=== PATIENT | female | born 1955 | race Asian ===

== ENCOUNTER 2020-12-25 10:56 | Inpatient (IN) | payer OTHER ==
--- NOTE | 2020-12-25 11:09 | Event Note ---
ED Screening Note Date of service: 12/25/20 Time: 11:08 ED Screening Note: 65 year old female presents to ED with c/o weakness left hand/numbness left forearm since 6 am this morning. She reports pain in left hip and numbness left ankle area but no LE weakness, no facial weakness/numbness tingling; no speech or vision changes. pmhx: DM, HTN This initial assessment/diagnostic orders/clinical plan/treatment(s) is/are subject to change based on patients health status, clinical progression and re- assessment by fellow clinical providers in the ED. Further treatment and workup at subsequent clinical providers discretion. Patient/guardian urged not to elope from the ED as their condition may be serious if not clinically assessed and managed. Initial orders include: CT head/labs/EKG/CXR
[2020-12-25 11:31] LABS: Basophils # (Auto) 0.1 K/mm3 (0.0-0.1); Basophils % (Auto) 1.2 % (0.0-1.8); Eosinophils # (Auto) 0.2 K/mm3 (0.0-0.4); Eosinophils % (Auto) 2.8 % (0.0-4.3); Hemoglobin 14.8 gm/dl (10.1-14.3); Lymphocytes # (Auto) 1.5 K/mm3 (1.2-5.4); Mean Corpuscular HGB Conc 34 % (30-34); Mean Corpuscular Volume 92 fl (79-97); Monocytes # (Auto) 0.6 K/mm3 (0.0-0.8); Monocytes % (Auto) 8.2 % (0.0-7.3); Platelet Count 272 K/mm3 (140-440); Red Cell Distribution Width 13.3 % (13.2-15.2)
[2020-12-25 11:56] LABS: INR 0.99 (0.87-1.13); Partial Thromboplastin Time 26.4 Sec. (24.2-36.6)
[2020-12-25 11:57] LABS: Albumin 2.9 g/dL (3.9-5); Calcium 8.4 mg/dL (8.4-10.2)
--- NOTE | 2020-12-25 12:09 | XRay Report ---
CHEST PA AND LATERAL VIEWS INDICATION: elevated BP/hand weakness. COMPARISON: None FINDINGS: Support devices: None Heart: Moderately enlarged Lungs/Pleura: Small bilateral pleural effusions. No pulmonary edema or acute pulmonary disease. IMPRESSION: 1. Cardiomegaly and small bilateral pleural effusions, possibly indicating early congestive failure, though there is no appreciable pulmonary edema. Signer Name: David Bryson MD Signed: 12/25/2020 12:04 PM Workstation Name: [id number]
--- NOTE | 2020-12-25 12:16 | Cat Scan Report ---
CT HEAD WITHOUT CONTRAST INDICATION / CLINICAL INFORMATION: Pt complains of weakness, LT hand and forearm numbness. Hypertension. TECHNIQUE: All CT scans at this location are performed using CT dose reduction for ALARA by means of automated e xposure control. COMPARISON: None available. FINDINGS: HEMORRHAGE: No evidence of intracranial hemorrhage or extra-axial fluid collection. EXTRA-AXIAL SPACES: Cortical sulci, sylvian fissures and basilar cisterns have an unremarkable appear ance. VENTRICULAR SYSTEM: The third and lateral ventricles are of normal size and configuration. CEREBRAL PARENCHYMA: Deep and subcortical white matter lucencies are observed in both cerebral hemisp heres likely secondary to microvascular ischemic change. No additional areas of abnormal brain parenc hymal attenuation are identified. There is no indication of recent infarction. MIDLINE SHIFT OR HERNIATION: There is no mass effect. CEREBELLUM / BRAINSTEM: Brainstem and cerebellum have an unremarkable appearance. MIDLINE STRUCTURES:No abnormalities of the pituitary gland or pineal region are identified. INTRACRANIAL VESSELS:No abnormalities are identified on this noncontrast head CT. ORBITS: visualized portions of the orbits have an unremarkable appearance. SOFT TISSUES of HEAD: No significant abnormality. CALVARIUM: Evaluation of bone windows reveals no abnormalities. PARANASAL SINUSES / MASTOID AIR CELLS: Visualized portions of the paranasal sinuses are free from inf lammatory mucosal disease. Mastoid air cells are normally pneumatized. IMPRESSION: 1. No acute intracranial abnormality. Signer Name: Orlin Jiménez MD Signed: 12/25/2020 12:11 PM Workstation Name: [id number]
[2020-12-25 12:20] LABS: Chol/HDL Ratio 4.4 %
[2020-12-25] MEDS ORDERED: ASPIRIN 325 MG TAB PO ONE (12:30)
--- NOTE | 2020-12-25 12:58 | Emergency Department Report ---
ED Neuro Deficit HPI - General Chief Complaint: Neuro Symptoms/Deficit Stated Complaint: LT ARM NUMBNESS Time Seen by Provider: 12/25/20 11:06 Source: patient Mode of arrival: Ambulatory Limitations: No Limitations - History of Present Illness Initial Comments: This is a 65-year-old female with no prior history of stroke who complains of numbness and weakness of her left side since 6 AM this morning. Patient states that she woke up at 6 AM and noticed that she had numbness in her left arm. She has never experienced this before. She denied any con commitment pressure tightness or pain in her chest. She stated that she noticed that she had some d ifficulty with grasping objects with her left hand. She noticed by 10:00 that she had some numbness in her left leg. She reported some pain in her upper left lateral thigh. She initially stated that she had no difficulty with walking but later told me she had difficulty going down the stairs. She does not report any ongoing weakness of the left lower extremity. However, she believes her left hand weakness is persistent. Patient states she has a history of type 2 diabetes and hypertension. She states that she "always wakes up in the middle of night short of breath". Last night she did so per her usual routine. She also states that she has had progressive swelling of her lower extremities lately left greater than right. Patient reports no prior history of coronary artery disease/myocardial infarction or VTE. -: During the night Time: 06:00 (Last known well time last night) Location: left arm, left leg Presenting Symptoms: Present: Weak/Paralyzed One Side History of same: No Place: home Severity: mild, moderate Quality: weak, numb Improves With: none Worsens With: none On Anticoagulants: No Context: other Associated Symptoms: denies other symptoms (None to follow. Left upper thigh pain as above) Treatments Prior to Arrival: none - Related Data Allergies/Adverse Reactions: Allergies Allergy/AdvReac Type Severity Reaction Status Date / Time No Known Allergies Allergy Unverified 12/25/20 11:08 ED Review of Systems ROS: Stated complaint: LT ARM NUMBNESS Other details as noted in HPI Constitutional: denies: chills, fever Eyes: denies: eye pain, vision change ENT: denies: ear pain, throat pain Respiratory: denies: cough, shortness of breath Cardiovascular: paroxysmal nocturnal dyspnea. denies: chest pain, palpitations Endocrine: no symptoms reported Gastrointestinal: denies: abdominal pain, nausea, diarrhea Genitourinary: denies: urgency, dysuria Musculoskeletal: as per HPI. denies: back pain, arthralgia Skin: denies: rash, lesions Neurological: numbness. denies: headache, weakness, paresthesias (Patient states that she has a "neuropathy".) Psychiatric: denies: anxiety, depression Hematological/Lymphatic: denies: easy bleeding, easy bruising ED Past Medical Hx - Past Medical History Previous Medical History?: Yes Hx Hypertension: Yes Hx Diabetes: Yes - Surgical History Past Surgical History?: No - Social History Substance Use Type: None ED Neuro Physical Exam - General Limitations: Physical Limitation General appearance: alert, in no apparent distress, obese Suspected Stroke: Yes - Head Head exam: Present: atraumatic, normocephalic - Eye Eye exam: Present: normal appearance. Absent: scleral icterus - ENT ENT exam: Present: mucous membranes moist - Neck Neck exam: Present: normal inspection. Absent: tenderness, meningismus - Respiratory Respiratory exam: Present: normal lung sounds bilaterally. Absent: respiratory distress - Cardiovascular Cardiovascular Exam: Present: regular rate, normal rhythm. Absent: systolic murmur, diastolic murmur, rubs, gallop - GI/Abdominal GI/Abdominal exam: Present: soft, normal bowel sounds. Absent: distended, tenderness, guarding, rebound, rigid - Extremities Exam Extremities exam: Present: pedal edema (2+ bilaterally), other (Bilateral leg edema at least 2+ left greater than right,) - Back Exam Back exam: Present: normal inspection - Neurological Exam Neurological exam: Present: alert, oriented X3, CN II-XII intact, motor sensory deficit - NIHSS Assessment Interval: Baseline 1a. Level of Consciousness: alert/keenly responsive 1b. LOC Questions: answers both correctly 1c. LOC Commands: performs tasks correctly 2. Best Gaze: normal 3. Visual: no visual loss 4. Facial Palsy: normal symmetrical movement 5b. Motor Arm Right: no drift 5a. Motor Arm Left: drift 6a. Motor Leg Left: no drift 6b. Motor Leg Right: no drift 7. Limb Ataxia: absent 8. Sensory: mild/moderate sensory loss 9. Best Language: no aphasia 10. Dysarthria: normal 11. Extinction/Inattention: no abnormality Total Score: 2 Stroke Severity: Minor Stroke - Psychiatric Psychiatric exam: Present: normal affect, normal mood - Skin Skin exam: Present: warm, dry, intact, normal color. Absent: rash ED Course Vital Signs 12/25/20 11:06 Temperature 97.9 F Pulse Rate 104 H Respiratory 18 Rate Blood Pressure 183/114 [Right] O2 Sat by Pulse 97 Oximetry - Reevaluation(s) Reevaluation #1: Telemetry neurology consult is placed. Discussed with hospitalist. Patient perhaps has had a lacunar infarct. She is not a candidate for TPA. She is outside the window. She will be given aspirin. Further recommendations for stroke work-up will be per teleneurologist. Additionally patient is diabetic and hypertensive with evidence of congestive heart failure. She is found to have an elevated troponin as well. Further cardiology work-up is pending. Additionally with her left thigh pain and bilateral leg swelling venous Doppler studies are also pending. Further care management per hospitalist/consult staff. 12/25/20 13:05 - Lab Data Result diagrams: 12/25/20 11:16 12/25/20 11:16 Lab Results 12/25/20 12/25/20 12/25/20 Range/Units 11:16 11:16 11:16 WBC 7.5 (4.5-11.0) K/mm3 RBC 4.80 (3.65-5.03) M/mm3 Hgb 14.8 H (10.1-14.3) gm/dl Hct 44.0 H (30.3-42.9) % MCV 92 (79-97) fl MCH 31 (28-32) pg MCHC 34 (30-34) % RDW 13.3 (13.2-15.2) % Plt Count 272 (140-440) K/mm3 Lymph % (Auto) 20.0 (13.4-35.0) % [place] % (Auto) 8.2 H (0.0-7.3) % Eos % (Auto) 2.8 (0.0-4.3) % Baso % (Auto) 1.2 (0.0-1.8) % Lymph # (Auto) 1.5 (1.2-5.4) K/mm3 [place] # (Auto) 0.6 (0.0-0.8) K/mm3 Eos # (Auto) 0.2 (0.0-0.4) K/mm3 Baso # (Auto) 0.1 (0.0-0.1) K/mm3 Seg Neutrophils % 67.8 (40.0-70.0) % Seg Neutrophils # 5.1 (1.8-7.7) K/mm3 PT 13.0 (12.2-14.9) Sec. INR 0.99 (0.87-1.13) APTT 26.4 (24.2-36.6) Sec. Sodium 139 (137-145) mmol/L Potassium 3.6 (3.6-5.0) mmol/L Chloride 98.2 (98-107) mmol/L Carbon Dioxide 35 H (22-30) mmol/L Anion Gap 9 mmol/L BUN 18 H (7-17) mg/dL Creatinine 1.0 (0.6-1.2) mg/dL Estimated GFR 56 ml/min BUN/Creatinine Ratio 18 % Glucose 239 H (65-100) mg/dL Calcium 8.4 (8.4-10.2) mg/dL Total Bilirubin 0.40 (0.1-1.2) mg/dL AST 24 (5-40) units/L ALT 22 (7-56) units/L Alkaline Phosphatase 92 (35-129) units/L Troponin T 0.288 H* (0.00-0.029) ng/mL Total Protein 5.7 L (6.3-8.2) g/dL Albumin 2.9 L (3.9-5) g/dL Albumin/Globulin Ratio 1.0 % Triglycerides 106 (2-149) mg/dL Cholesterol 207 H (50-199) mg/dL LDL Cholesterol Direct 163 H (50-130) mg/dL HDL Cholesterol 47 (40-59) mg/dL Cholesterol/HDL Ratio 4.40 % Lipase 15 (13-60) units/L - EKG Data -: EKG Interpreted by Ny EKG shows normal: sinus rhythm Rate: normal Interpretation: nonspecific ST-T wave ike, LVH (With associated repolarization abnormality), other (Left axis deviation. Intraventricular conduction delay.) - Radiology Data Radiology results: report reviewed, image reviewed Critical care attestation.: If time is entered above; I have spent that time in minutes in the direct care of this critically ill patient, excluding procedure time. 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
--- NOTE | 2020-12-25 14:57 | Consultation ---
Medications and Allergies Allergies Allergy/AdvReac Type Severity Reaction Status Date / Time No Known Allergies Allergy Unverified 12/25/20 11:08 Home Medications Medication Instructions Recorded Confirmed Last Taken Type Gabapentin [Neurontin] 300 mg PO BID 12/25/20 12/25/20 Unknown History Glimepiride [Amaryl] 4 mg PO BID 12/25/20 12/25/20 Unknown History hydroCHLOROthiazide [Hctz] 12.5 mg PO QDAY 12/25/20 12/25/20 Unknown History Physical Examination - Vital Signs Vital Signs: Vital Signs Temp Pulse Resp BP Pulse Ox 97.9 F 104 H 18 183/114 97 12/25/20 11:06 12/25/20 11:06 12/25/20 11:06 12/25/20 11:06 12/25/20 11:06 Results - Laboratory Findings CBC and BMP: 12/25/20 11:16 12/25/20 11:16 Abnormal Lab Findings: Abnormal Labs 12/25/20 12/25/20 11:16 11:16 Hgb 14.8 H Hct 44.0 H [place] % (Auto) 8.2 H Carbon Dioxide 35 H BUN 18 H Glucose 239 H Troponin T 0.288 H* Total Protein 5.7 L Albumin 2.9 L Cholesterol 207 H LDL Cholesterol Direct 163 H Assessment and Plan [place] [facility] Consult Note # Demographics Consult Type: Acute Stroke Level 2 (4.5-24 hrs) Patient Location: Emergency Room First Name: Madeline Last Name: Stu Date of : 1955 Age: 65 Gender: Female Time of Initial Page (Eastern Time): 12/25/2020, 13:10 Time of Return Call (Eastern Time): 12/25/2020, 13:13 # HPI Chief Complaint: weakness (focal) History: 65 yo woman with DM, HTN, awoke at 6:00 and went to get some water and dropped it out of her left hand. Her left hand was feeling funny and she couldn't grab in it. She noticed some increased swelling in her left leg which has gotten worse. NIHSS 2 for left arm drift. # Scores Time of exam and NIHSS (Eastern Time): 12/25/2020, 14:46 Level of Consciousness 1a: [0] = Alert; keenly responsive LOC Questions 1b: [0] = Answers both questions correctly LOC Commands 1c: [0] = Performs both tasks correctly Best Gaze 2: [0] = Normal Visual 3: [0] = No visual loss Facial Palsy 4: [0] = Normal symmetrical movements Motor Arm Left 5a: [1] = Drift Motor Arm Right 5b: [0] = No drift Motor Leg Left 6a: [0] = No drift Motor Leg Right 6b: [1] = Drift Limb Ataxia 7: [0] = Absent Sensory 8: [1] = Thss-jb-ufuzbana sensory loss Best Language 9: [0] = No aphasia Dysarthria 10: [0] = Normal Extinction and Inattention 11: [0] = No abnormality NIHSS Total: 3 # Exam SBP: 158 DBP: 114 # PMH-FH-SH Past Medical History: Diabetes, hypertension, neuropathy Social History: non-smoker, occasional alcohol Medications: Gabapentin, Losartan, HCTZ, Glimiperide, Allergies: NKDA # Data Head CT: no bleed # Assessment Impression: Left sided weakness concerning for acute stroke. # Plan Thrombolytic/Intervention: NOT IV Thrombolytic or IA Intervention Thrombolytic Exclusion (< 3 hour window): time of onset unclear Thrombolytic Exclusion: > 4.5 hours Intraarterial Exclusion: other (see below), Symptoms not suggestive of LVO, CTA pending Labs: hemoglobin A1c, lipid panel Imaging: (urgency: STAT in ED): CT Angiogram Head and CT Angiogram Neck Imaging: (urgency: routine admission): MRI Brain without contrast Diagnostic Test: echo with bubble study Therapy/Evaluation: NPO until swallow evaluation, PT/OT evaluation, speech/swallow consultation Medication: aspirin 81 mg daily, clopidogrel (Plavix) 75 mg daily, aspirin 81 mg PLUS clopidogrel (Plavix) 75 mg for 21 days, then monotherapy therafter, Load with plavix 300 mg x 1 now DVT Prophylaxis: SCD, chemical DVT prophylaxis Other: LDL < 70, permissive hypertension, telemetry monitoring, I have discussed my recommendations with the referring provider Disposition: admit # Logistics Telemedicine: Interactive 2 way audio and visual telecommunication technology was utilized during this visit
--- NOTE | 2020-12-25 15:04 | History and Physical Report ---
History of Present Illness Chief complaint: I woke up this morning and I was weak on the left side History of present illness: 65 YO Female with Obesity, HTN, DM presents to ED for evaluation. Pt reports " I feel weak". Patient states that she was in her usual state of health at bedtime which was around 2200 hrs. Patient states that she awoke from sleep at 1000 hrs. and was found to have left arm and leg weakness. Patient reports difficulty grasping and holding onto objects with her left hand as well as unsteady gait. Patient transported to [facility] via private vehicle for further care and evaluation of the aforementioned symptoms. The patient was seen and evaluated in the emergency department. All lab and imaging studies reviewed. Patient was found to have a neurologic deficit. A code stroke was called. Patient found to have elevated troponins which is consistent with non-ST elevation MO, chest x-ray was ordered and patient was found to have a right middle lobe pneumonia. Patient admitted to telemetry and initiated on ACS protocol as well as pneumonia protocol. Patient denies known history of atrial fibrillation, fever, chills, chest pain, palpitations, productive cough, skin rash, recent ill contacts, known ill contacts, unilateral leg swelling, calf pain, individual/family history of DVT/PE/bleeding/blood clotting disorders, or known exposure to COVID-19. Teleneurology consulted in ED. and not a candidate for TPA. Cardiology team consulted in ED. Advanced care planning conducted in ED. Past History Past Medical History: diabetes, hypertension Past Surgical History: No surgical history, Other (Reviewed) Social history: single. denies: smoking, alcohol abuse, prescription drug abuse Family history: diabetes, hypertension Medications and Allergies Allergies Allergy/AdvReac Type Severity Reaction Status Date / Time No Known Allergies Allergy Unverified 12/25/20 11:08 Home Medications Medication Instructions Recorded Confirmed Last Taken Type Gabapentin [Neurontin] 300 mg PO BID 12/25/20 12/25/20 Unknown History Glimepiride [Amaryl] 4 mg PO BID 12/25/20 12/25/20 Unknown History Losartan Potassium 100 mg PO QHS 12/25/20 12/25/20 Unknown History hydroCHLOROthiazide [Hctz] 12.5 mg PO QDAY 12/25/20 12/25/20 Unknown History Review of Systems Constitutional: no weight loss, no fever, no sweats Ears, nose, mouth and throat: no ear pain, no ear discharge, no tinnitis, no nose pain, no nasal congestion, no nasal discharge Breasts: no change in shape Cardiovascular: no chest pain, no orthopnea, no palpitations, no rapid/irregular heart beat, no edema, no syncope, no claudication, no leg edema Respiratory: no cough, no cough with sputum, no excessive sputum, no hemoptysis Gastrointestinal: no nausea, no vomiting, no diarrhea, no constipation, no change in bowel habits, no hematemesis Genitourinary Female: no pelvic pain, no flank pain, no dysuria, no urinary frequency, no urgency Rectal: no pain, no incontinence, no bleeding Musculoskeletal: no neck stiffness, no neck pain, no shooting arm pain, no arm numbness/tingling, no low back pain, no shooting leg pain Integumentary: no rash, no pruritis, no redness, no sores, no wounds Neurological: weakness, numbness, lack of coordination, gait dysfunction, motor disturbance Psychiatric: no anxiety, no memory loss, no sleep disturbances, no insomnia, no hypersomnia, no change in libido, no suicidal ideation, no disorientation Endocrine: no cold intolerance, no heat intolerance, no polyphagia, no polydipsia, no polyuria, no nocturia, no excessive sweating Hematologic/Lymphatic: no easy bruising, no easy bleeding, no lymphadenopathy, no lymphedema Allergic/Immunologic: no urticaria, no allergic rhinitis, no wheezing, no anaphylaxis, no angioedema Exam - Constitutional Vitals: Temp Pulse Resp BP Pulse Ox 97.9 F 104 H 18 183/114 97 12/25/20 11:06 12/25/20 11:06 12/25/20 11:06 12/25/20 11:06 12/25/20 11:06 General appearance: Present: mild distress, obese - EENT Eyes: Present: PERRL ENT: hearing intact, clear oral mucosa - Neck Neck: Present: supple, normal ROM - Respiratory Respiratory effort: normal Respiratory: bilateral: CTA - Cardiovascular Heart Sounds: Present: S1 & S2. Absent: rub, click - Extremities Extremities: pulses symmetrical, No edema Peripheral Pulses: within normal limits - Abdominal General gastrointestinal: Present: soft, non-tender, non-distended, normal bowel sounds Female genitourinary: Present: normal - Integumentary Integumentary: Present: clear, warm, dry - Musculoskeletal Musculoskeletal: gait normal, strength equal bilaterally - Psychiatric Psychiatric: appropriate mood/affect, intact judgment & insight - Neurologic Neurologic: CNII-XII intact, moves all extremities HEART Score - HEART Score Troponin: Troponin T 0.288 ng/mL (0.00-0.029) H* 12/25/20 11:16 Results - Labs CBC & Chem 7: 12/25/20 11:16 12/25/20 11:16 Labs: Abnormal lab results 12/25/20 12/25/20 Range/Units 11:16 11:16 Hgb 14.8 H (10.1-14.3) gm/dl Hct 44.0 H (30.3-42.9) % [place] % (Auto) 8.2 H (0.0-7.3) % Carbon Dioxide 35 H (22-30) mmol/L BUN 18 H (7-17) mg/dL Glucose 239 H (65-100) mg/dL Troponin T 0.288 H* (0.00-0.029) ng/mL Total Protein 5.7 L (6.3-8.2) g/dL Albumin 2.9 L (3.9-5) g/dL Cholesterol 207 H (50-199) mg/dL LDL Cholesterol Direct 163 H (50-130) mg/dL Assessment and Plan - Patient Problems (1) CVA (cerebral vascular accident) Current Visit: Yes Status: Acute Qualifiers: CVA mechanism: unspecified Qualified Code(s): I63.9 - Cerebral infarction, unspecified Plan to address problem: CVA protocol: CT head, neuro check, seizure precautions, antiplatelet therapy, lipid panel, echocardiogram, carotid Doppler, lipid panel, telemetry neurology consulted (2) NSTEMI (non-ST elevated myocardial infarction) Current Visit: Yes Status: Acute Plan to address problem: ACS protocol: Telemetry monitoring, serial cardiac enzymes, EKG, echocardiogram, cardiology team consulted in ED. therapeutic anticoagulation with Lovenox. (3) Diastolic CHF Current Visit: Yes Status: Acute Qualifiers: Heart failure chronicity: acute Qualified Code(s): I50.31 - Acute diastolic (congestive) heart failure Plan to address problem: Strict I's/O, monitor urine output every shift, daily weight, afterload reduction, blood pressure control, echocardiogram ordered and is pending at time of admission. (4) Pneumonia Current Visit: Yes Status: Acute Plan to address problem: Pneumonia protocol: Chest x-ray, CBC, CMP, IV antibiotic therapy, supplemental oxygen, pulse oximetry, blood culture. (5) DVT prophylaxis Current Visit: Yes Status: Acute Plan to address problem: SCD to bilateral lower extremities while in bed, continue therapeutic anticoagulation (6) Advance care planning Current Visit: Yes Status: Acute Plan to address problem: Disease education conducted, care plan discussed, diagnoses discussed, prognosis discussed, patient is full code, patient knowledges understanding and agree with care plan, +30 minutes.
[2020-12-25] MEDS ORDERED: ACETAMINOPHEN 325 MG TAB PO PRN ×2 (15:06)
[2020-12-25] MEDS ORDERED: PROMETHAZINE 25 MG RECT SUPP PR PRN (15:06)
[2020-12-25] MEDS ORDERED: METOCLOPRAMIDE 10 MG TAB PO PRN (15:06)
[2020-12-25] MEDS ORDERED: traMADol 50 MG TAB PO PRN (15:06)
[2020-12-25] MEDS ORDERED: MAGNESIUM HYDROXIDE (MOM) ORAL LIQD UDC PO PRN (15:06)
--- NOTE | 2020-12-25 15:11 | Vascular Lab Report ---
Bilateral lower extremity Doppler venous ultrasound INDICATION: Edema FINDINGS: Bilateral common femoral veins, superficial femoral veins and popliteal veins have normal c ompressibility and phasic flow. IMPRESSION: No evidence for DVT. Signer Name: J Luis Herrrea MD Signed: 12/25/2020 3:07 PM Workstation Name: [id number]
--- NOTE | 2020-12-25 16:01 | Cat Scan Report ---
CTA CHEST WITH CONTRAST INDICATION / CLINICAL INFORMATION: Patient complains of chest pain and S.O.B.. TECHNIQUE: Axial CT images were obtained through the chest after injection of IV contrast. 3 plane ME P and/or 3D reconstructions were produced. All CT scans at this location are performed using CT dose reduction for ALARA by means of automated exposure control. COMPARISON: None available. FINDINGS: The central pulmonary arteries are patent. There is a portion of the right upper lung pulmonary arter ies not well seen as it extends past the right right superior vena cava. The more peripheral pulmonar y arteries extending from this location is patent. No definite PTE is seen. Bilateral pleural effusio ns are identified. The heart is enlarged with small pericardial effusion. No acute bone findings are identified. Increased opacity in right middle lobe. IMPRESSION: 1. No CT evidence for pulmonary embolism. 2. Bilateral pleural effusions. 3. Increased opacity/infiltrate within the right middle lobe. 4. Cardiomegaly and pericardial effusion. Signer Name: J Luis Herrera MD Signed: 12/25/2020 3:57 PM Workstation Name: [id number]
[2020-12-25] MEDS ORDERED: cefTRIAXone/NS 2 GM/100 ML 2 GM/100 ML BAG IV SCH (19:00)
[2020-12-25] MEDS ORDERED: AZITHROMYCIN/NS 500 MG/250 ML 500 MG/250 ML BAG IV SCH (19:00)
[2020-12-25] MEDS: ENOXAPARIN 100 MG/1 ML INJ SUB-Q SCH (22:49)
[2020-12-25] MEDS: GABAPENTIN 300 MG CAP PO SCH (22:50)
[2020-12-26] MEDS: ENOXAPARIN 100 MG/1 ML INJ SUB-Q SCH ×2 (09:22→21:24)
[2020-12-26] MEDS: ASPIRIN EC 81 MG TAB PO SCH (09:23)
[2020-12-26] MEDS: hydroCHLOROthiazide 12.5 MG CAP PO SCH (09:23)
[2020-12-26] MEDS: CLOPIDOGREL 75 MG TAB PO SCH (09:23)
[2020-12-26] MEDS: GABAPENTIN 300 MG CAP PO SCH ×2 (09:23→21:25)
[2020-12-26] MEDS ORDERED: ASPIRIN 325 MG TAB PO SCH (10:00)
--- NOTE | 2020-12-26 11:05 | Progress Note ---
Assessment and Plan Assessment and plan: #CVA CT head negative for any acute infarct CTA head and neck, MRI brain and echocardiogram ordered and pending Continue aspirin and statins Neurology evaluation PT/OT ordered #NSTEMI On Lovenox twice daily regimen Cardiology consulted Echocardiogram #Congestive heart failure Stable #Right middle lobe pneumonia Continue ceftriaxone and azithromycin #DVT ppx - Lovenox History Interval history: 65 YO Female with Obesity, HTN, DM presents to ED for evaluation. Pt reports " I feel weak". Patient states that she was in her usual state of health at bedtime which was around 2200 hrs. Patient states that she awoke from sleep at 1000 hrs. and was found to have left arm and leg weakness. Patient reports difficulty grasping and holding onto objects with her left hand as well as unsteady gait. In the ER, stroke code was called and patient was seen by teleneurologist. CT head was negative for any stroke. Other findings on admission include elevated troponin and right middle lobe pneumonia. Patient was thus admitted to the hospital for further evaluation. Cardiology and neurology consulted 12/26. She denies any chest pain this morning. For right middle lobe pneumonia, patient is on IV antibiotics. Cardiology was consulted for elevated troponin. Hospitalist Physical - Physical exam Narrative exam: VITAL SIGNS: Reviewed. GENERAL: Awake HEAD: No signs of head trauma. EYES: Pupils are equal. Extraocular motions intact. MOUTH: Oropharynx is normal. NECK: No adenopathy, no JVD. CHEST: Chest with diminished breath sounds bilaterally. No wheezes, rales, or rhonchi. CARDIAC: normal S1 and S2, without murmurs, gallops, or rubs. ABDOMEN: Soft, non tender and non distended. No rebound or guarding, and no masses palpated. Bowel Sounds normal. MUSCULOSKELETAL: No edema NEUROLOGIC EXAM: Alert and oriented x3. No focal neurologic deficits SKIN: No obvious lesions - Constitutional Vitals: Temp Pulse Resp BP Pulse Ox 97.9 F 96 H 20 165/103 97 12/26/20 08:08 12/26/20 08:08 12/26/20 08:08 12/26/20 08:08 12/26/20 08:08 HEART Score - HEART Score Troponin: Troponin T 0.203 ng/mL (0.00-0.029) H* 12/25/20 17:03 Results - Labs CBC & Chem 7: 12/25/20 11:16 12/25/20 11:16 Labs: Laboratory Last Values WBC 7.5 K/mm3 (4.5-11.0) 12/25/20 11:16 RBC 4.80 M/mm3 (3.65-5.03) 12/25/20 11:16 Hgb 14.8 gm/dl (10.1-14.3) H 12/25/20 11:16 Hct 44.0 % (30.3-42.9) H 12/25/20 11:16 MCV 92 fl (79-97) 12/25/20 11:16 MCH 31 pg (28-32) 12/25/20 11:16 MCHC 34 % (30-34) 12/25/20 11:16 RDW 13.3 % (13.2-15.2) 12/25/20 11:16 Plt Count 272 K/mm3 (140-440) 12/25/20 11:16 Lymph % (Auto) 20.0 % (13.4-35.0) 12/25/20 11:16 Early % (Auto) 8.2 % (0.0-7.3) H 12/25/20 11:16 Eos % (Auto) 2.8 % (0.0-4.3) 12/25/20 11:16 Baso % (Auto) 1.2 % (0.0-1.8) 12/25/20 11:16 Lymph # (Auto) 1.5 K/mm3 (1.2-5.4) 12/25/20 11:16 Early # (Auto) 0.6 K/mm3 (0.0-0.8) 12/25/20 11:16 Eos # (Auto) 0.2 K/mm3 (0.0-0.4) 12/25/20 11:16 Baso # (Auto) 0.1 K/mm3 (0.0-0.1) 12/25/20 11:16 Seg Neutrophils % 67.8 % (40.0-70.0) 12/25/20 11:16 Seg Neutrophils # 5.1 K/mm3 (1.8-7.7) 12/25/20 11:16 PT 13.0 Sec. (12.2-14.9) 12/25/20 11:16 INR 0.99 (0.87-1.13) 12/25/20 11:16 APTT 26.4 Sec. (24.2-36.6) 12/25/20 11:16 Sodium 139 mmol/L (137-145) 12/25/20 11:16 Potassium 3.6 mmol/L (3.6-5.0) 12/25/20 11:16 Chloride 98.2 mmol/L (98-107) 12/25/20 11:16 Carbon Dioxide 35 mmol/L (22-30) H 12/25/20 11:16 Anion Gap 9 mmol/L 12/25/20 11:16 BUN 18 mg/dL (7-17) H 12/25/20 11:16 Creatinine 1.0 mg/dL (0.6-1.2) 12/25/20 11:16 Estimated GFR 56 ml/min 12/25/20 11:16 BUN/Creatinine Ratio 18 % 12/25/20 11:16 Glucose 239 mg/dL (65-100) H 12/25/20 11:16 POC Glucose 169 mg/dL (70-105) H 12/25/20 22:16 Calcium 8.4 mg/dL (8.4-10.2) 12/25/20 11:16 Total Bilirubin 0.40 mg/dL (0.1-1.2) 12/25/20 11:16 AST 24 units/L (5-40) 12/25/20 11:16 ALT 22 units/L (7-56) 12/25/20 11:16 Alkaline Phosphatase 92 units/L (35-129) 12/25/20 11:16 Troponin T 0.203 ng/mL (0.00-0.029) H* 12/25/20 17:03 Total Protein 5.7 g/dL (6.3-8.2) L 12/25/20 11:16 Albumin 2.9 g/dL (3.9-5) L 12/25/20 11:16 Albumin/Globulin Ratio 1.0 % 12/25/20 11:16 Triglycerides 106 mg/dL (2-149) 12/25/20 11:16 Cholesterol 207 mg/dL (50-199) H 12/25/20 11:16 LDL Cholesterol Direct 163 mg/dL (50-130) H 12/25/20 11:16 HDL Cholesterol 47 mg/dL (40-59) 12/25/20 11:16 Cholesterol/HDL Ratio 4.40 % 12/25/20 11:16 Lipase 15 units/L (13-60) 12/25/20 11:16 Carter/IV: Voiding Method Toilet Active Medications - Current Medications Current Medications: Generic Name Dose Route Start Last Admin Trade Name Freq PRN Reason Stop Dose Admin Acetaminophen 650 mg 12/25/20 15:06 Acetaminophen 325 Mg Tab PO Q4H PRN Pain, Mild (1-3) Aspirin 81 mg 12/26/20 10:00 12/26/20 09:23 Aspirin Ec 81 Mg Tab PO 81 mg QDAY ALEXIS Administration Atorvastatin Calcium 40 mg 12/25/20 22:00 12/25/20 22:50 Atorvastatin 40 Mg Tab PO 40 mg QHS ALEXIS Administration Bisacodyl 10 mg 12/25/20 15:06 Bisacodyl 10 Mg Rect Supp GA QDAY PRN Constipation Clopidogrel Bisulfate 75 mg 12/26/20 10:00 12/26/20 09:23 Clopidogrel 75 Mg Tab PO 75 mg QDAY ALEXIS Administration Enoxaparin Sodium 90 mg 12/25/20 20:00 12/26/20 09:22 Enoxaparin 100 Mg/1 Ml Inj 1 mg/kg (90 mg) 90 mg SUB-Q Administration Q12H [facility] Protocol Gabapentin 300 mg 12/25/20 22:00 12/26/20 09:23 Gabapentin 300 Mg Cap PO 300 mg BID ALEXIS Administration Hydrochlorothiazide 12.5 mg 12/26/20 10:00 12/26/20 09:23 Hydrochlorothiazide 12.5 Mg Cap PO 12.5 mg QDAY ALEXIS Administration Ceftriaxone Sodium 2 gm in 100 mls @ 200 mls/hr 12/25/20 19:00 12/25/20 19:12 Rocephin/Ns 2 Gm/100 Ml IV 200 mls/hr Q24H ALEXIS Administration Protocol Azithromycin 500 mg in 250 mls @ 250 mls/hr 12/25/20 19:00 12/25/20 22:48 Zithromax/Ns IV 250 mls/hr Q24H [facility]LEXIS Administration Protocol Magnesium Hydroxide 30 ml 12/25/20 15:06 Magnesium Hydroxide (Mom) Oral Liqd Udc PO Q4H PRN Constipation Metoclopramide HCl 10 mg 12/25/20 15:06 Metoclopramide 10 Mg Tab PO Q6H PRN Nausea And Vomiting Ondansetron HCl 4 mg 12/25/20 15:06 Ondansetron 4 Mg/2 Ml Inj IV Q8H PRN Nausea And Vomiting Promethazine HCl 25 mg 12/25/20 15:06 Promethazine 25 Mg Rect Supp GA Q6H PRN Nausea And Vomiting Sodium Chloride 10 ml 12/25/20 15:06 12/25/20 22:50 Sodium Chloride 0.9% 10 Ml Flush Syringe IV 10 ml PRN PRN Administration LINE FLUSH Sodium Chloride 10 ml 12/25/20 15:06 Sodium Chloride 0.9% 10 Ml Flush Syringe IV PRN PRN LINE FLUSH Tramadol HCl 50 mg 12/25/20 15:06 Tramadol 50 Mg Tab PO Q6H PRN Pain, Moderate (4-6)
--- NOTE | 2020-12-26 11:47 | Consultation ---
History of Present Illness Consult date: 12/26/20 Requesting physician: KHARI MARTE Consult reason: other (NSTEMI) History of present illness: Pt is a 65-year-old AA female who presented with complaints of left-sided weakness x 1 day. Pt states she dropped a cup with her left hand before going sleep the night before arrival. It did not concern her much, so she proceeded to sleep. The following morning, she noticed her left hand function was significantly diminished. She also reports pain and weakness in her left hip and thigh. Sx concerning for acute CVA. Head CT neg thus far. Brain MRI pending. Cardiology has been consulted for evaluation of elevated troponin. Pt denies chest pain, SOB, or any additional cardiac complaints. ECG reveals NSR w/IVCD, no acute ischemic changes. Past History Past Medical History: diabetes, hypertension Past Surgical History: No surgical history, Other (Reviewed) Social history: single. denies: smoking, alcohol abuse Family history: diabetes, hypertension Medications and Allergies Allergies Allergy/AdvReac Type Severity Reaction Status Date / Time No Known Allergies Allergy Unverified 12/25/20 11:08 Home Medications Medication Instructions Recorded Confirmed Last Taken Type Gabapentin [Neurontin] 300 mg PO BID 12/25/20 12/25/20 Unknown History Glimepiride [Amaryl] 4 mg PO BID 12/25/20 12/25/20 Unknown History Losartan Potassium 100 mg PO QHS 12/25/20 12/25/20 Unknown History hydroCHLOROthiazide [Hctz] 12.5 mg PO QDAY 12/25/20 12/25/20 Unknown History Active Meds: Active Medications Acetaminophen (Acetaminophen 325 Mg Tab) 650 mg PO Q4H PRN PRN Reason: Pain, Mild (1-3) Aspirin (Aspirin Ec 81 Mg Tab) 81 mg PO QDAY [facility] Last Admin: 12/26/20 09:23 Dose: 81 mg Documented by: Atorvastatin Calcium (Atorvastatin 40 Mg Tab) 40 mg PO QHS [facility] Last Admin: 12/25/20 22:50 Dose: 40 mg Documented by: Bisacodyl (Bisacodyl 10 Mg Rect Supp) 10 mg ME QDAY PRN PRN Reason: Constipation Clopidogrel Bisulfate (Clopidogrel 75 Mg Tab) 75 mg PO QDAY [facility] Last Admin: 12/26/20 09:23 Dose: 75 mg Documented by: Enoxaparin Sodium (Enoxaparin 100 Mg/1 Ml Inj) 90 mg 1 mg/kg (90 mg) SUB-Q Q12H ALEXIS; Protocol Last Admin: 12/26/20 09:22 Dose: 90 mg Documented by: Gabapentin (Gabapentin 300 Mg Cap) 300 mg PO BID [facility] Last Admin: 12/26/20 09:23 Dose: 300 mg Documented by: Hydrochlorothiazide (Hydrochlorothiazide 12.5 Mg Cap) 12.5 mg PO QDAY [facility] Last Admin: 12/26/20 09:23 Dose: 12.5 mg Documented by: Ceftriaxone Sodium (Rocephin/Ns 2 Gm/100 Ml) 2 gm in 100 mls @ 200 mls/hr IV Q24H [facility]; Protocol Last Admin: 12/25/20 19:12 Dose: 200 mls/hr Documented by: Azithromycin (Zithromax/Ns) 500 mg in 250 mls @ 250 mls/hr IV Q24H [facility]; Protocol Last Admin: 12/25/20 22:48 Dose: 250 mls/hr Documented by: Magnesium Hydroxide (Magnesium Hydroxide (Mom) Oral Liqd Udc) 30 ml PO Q4H PRN PRN Reason: Constipation Metoclopramide HCl (Metoclopramide 10 Mg Tab) 10 mg PO Q6H PRN PRN Reason: Nausea And Vomiting Ondansetron HCl (Ondansetron 4 Mg/2 Ml Inj) 4 mg IV Q8H PRN PRN Reason: Nausea And Vomiting Promethazine HCl (Promethazine 25 Mg Rect Supp) 25 mg ME Q6H PRN PRN Reason: Nausea And Vomiting Sodium Chloride (Sodium Chloride 0.9% 10 Ml Flush Syringe) 10 ml IV PRN PRN PRN Reason: LINE FLUSH Last Admin: 12/25/20 22:50 Dose: 10 ml Documented by: Sodium Chloride (Sodium Chloride 0.9% 10 Ml Flush Syringe) 10 ml IV PRN PRN PRN Reason: LINE FLUSH Tramadol HCl (Tramadol 50 Mg Tab) 50 mg PO Q6H PRN PRN Reason: Pain, Moderate (4-6) Review of Systems Constitutional: no fever, no chills Ears, nose, mouth and throat: no nasal congestion, no sore throat Cardiovascular: no chest pain, no orthopnea, no palpitations, no rapid/irregular heart beat, no edema, no syncope, no lightheadedness, no shortness of breath, no dyspnea on exertion, no paroxysmal nocturnal dyspnea, no claudication Respiratory: no cough, no shortness of breath, no dyspnea on exertion Gastrointestinal: no abdominal pain, no nausea, no vomiting, no diarrhea, no constipation Genitourinary Female: no pelvic pain, no flank pain, no dysuria Musculoskeletal: limitation of motion (left hand & LLE), no neck stiffness, no neck pain, no myalgias, no frequent falls Integumentary: no rash, no wounds Neurological: weakness, no head injury, no paralysis, no seizures, no syncope, no vertigo, no headaches (left hand & LLE) Endocrine: no cold intolerance, no heat intolerance Hematologic/Lymphatic: no easy bruising, no easy bleeding Allergic/Immunologic: no urticaria, no anaphylaxis Physical Examination Last Vital Signs Temp 97.9 F 12/26/20 08:08 Pulse 94 H 12/26/20 11:53 Resp 20 12/26/20 08:08 BP 165/103 12/26/20 08:08 Pulse Ox 97 12/26/20 08:08 General appearance: no acute distress HEENT: Positive: EOMI, Normocephaly, Sinus Tenderness Neck: Positive: neck supple, trachea midline. Negative: JVD/HJR Cardiac: Positive: Reg Rate and Rhythm, S1/S2. Negative: Audible Murmur Lungs: Positive: clear to auscultation Neuro: Positive: Weakness (left hand & LLE weakness). Negative: Motor Function Intact, Coordination Normal, DTR Norm/Equal U/L Extrem Abdomen: Positive: Soft. Negative: Tender Skin: Negative: Rash Musculoskeletal: No Fluid Collection, No Pain Extremities: Present: upper extr. pulses, lower extr. pulses. Absent: edema Results 12/25/20 11:16 12/25/20 11:16 Cardiac Enzymes 12/25/20 Range/Units 11:16 AST 24 (5-40) units/L Coagulation 12/25/20 Range/Units 11:16 PT 13.0 (12.2-14.9) Sec. INR 0.99 (0.87-1.13) APTT 26.4 (24.2-36.6) Sec. Lipids 12/25/20 Range/Units 11:16 Triglycerides 106 (2-149) mg/dL Cholesterol 207 H (50-199) mg/dL HDL Cholesterol 47 (40-59) mg/dL Cholesterol/HDL Ratio 4.40 % Comprehensive Metabolic Panel 12/25/20 Range/Units 11:16 Sodium 139 (137-145) mmol/L Potassium 3.6 (3.6-5.0) mmol/L Chloride 98.2 (98-107) mmol/L Carbon Dioxide 35 H (22-30) mmol/L BUN 18 H (7-17) mg/dL Creatinine 1.0 (0.6-1.2) mg/dL Glucose 239 H (65-100) mg/dL Calcium 8.4 (8.4-10.2) mg/dL AST 24 (5-40) units/L ALT 22 (7-56) units/L Alkaline Phosphatase 92 (35-129) units/L Total Protein 5.7 L (6.3-8.2) g/dL Albumin 2.9 L (3.9-5) g/dL - Imaging and Cardiology Echo: pending EKG: report reviewed, image reviewed - EKG Interpretation EKG: no acute changes EKG interpretations - Telemetry EKG Rhythm: Sinus Rhythm - EKG Sinus rhythms and dysrhythmias: sinus rhythm AV and intraventricular conduction: intraventricular conducti Assessment and Plan CE elevation appears consistent with NSTEMI Type 2 in the setting of suspected acute CVA. Obtain echo. Initiate bASA, Plavix, statin, and BB. Plan for ischemic eval as an outpatient. Pt seen in conjunction with Dr. Lares, who agrees with the assessment and plan of care. - Patient Problems (1) CVA (cerebral vascular accident) Current Visit: Yes Status: Suspected Qualifiers: CVA mechanism: unspecified Qualified Code(s): I63.9 - Cerebral infarction, unspecified (2) Congestive heart failure Current Visit: Yes Status: Suspected Qualifiers: Heart failure chronicity: unspecified Qualified Code(s): I50.813 - Acute on chronic right heart failure (3) NSTEMI (non-ST elevated myocardial infarction) Current Visit: Yes Status: Acute Plan to address problem: Type 2 (4) HTN (hypertension) Current Visit: Yes Status: Chronic Qualifiers: Hypertension type: essential hypertension Qualified Code(s): I10 - Essential (primary) hypertension (5) HLD (hyperlipidemia) Current Visit: Yes Status: Chronic Qualifiers: Hyperlipidemia type: mixed hyperlipidemia Qualified Code(s): E78.2 - Mixed hyperlipidemia (6) DM2 (diabetes mellitus, type 2) Current Visit: Yes Status: Chronic (7) Neuropathy Current Visit: Yes Status: Chronic
--- NOTE | 2020-12-26 12:24 | Consultation ---
History of Present Illness Consult date: 12/26/20 Reason for Consult: new onset left side weakness History of present illness: I woke up this morning and I was weak on the left side History of present illness: 65 YO Female with Obesity, HTN, DM presents to ED for evaluation. Pt reports " I feel weak". Patient states that she was in her usual state of health at bedtime which was around 2200 hrs. Patient states that she awoke from sleep at 6am yeaterday . and was found to have left arm she went back to be then walk up at 10 am with weakness persisted Patient reports difficulty grasping and holding onto objects with her left hand as well as unsteady gait. Patient transported to [facility] via private vehicle for further care and evaluation of the aforementioned symptoms. The patient was seen and evaluated in the emergency department. All lab and imaging studies reviewed. Patient was found to have a neurologic deficit. A code stroke was called. Patient found to have elevated troponins which is consistent with non-ST elevation NV, chest x-ray was ordered and patient was found to have a right middle lobe pneumonia. Patient admitted to telemetry and initiated on ACS protocol as well as pneumonia protocol. Patient denies known history of atrial fibrillation, fever, chills, chest pain, palpitations, productive cough, skin rash, recent ill contacts, known ill contacts, unilateral leg swelling, calf pain, individual/family history of DVT/PE/bleeding/blood clotting disorders, or known exposure to COVID-19. Teleneurology consulted in ED. and pt. is a not candidate for for TPA due to unclear onset of symptoms. Cardiology team consulted in ED. Advanced care planning conducted in ED. initial Ct brain is unremarkable -CTA darrin and neck not done -CTA chest is negative for PE but with effusion and right mid lobe pneumonia -DVT LEs is negative - pt. is started on ASA 325 mg and Plavix due to above and positive cardiac enzymes and NSTEMI. -Initial BP 163/103 Past History Past Medical History: diabetes, hypertension Past Surgical History: No surgical history, Other (Reviewed) Social history: single. denies: smoking, alcohol abuse, prescription drug abuse Family history: diabetes, hypertension Medications and Allergies Allergies Allergy/AdvReac Type Severity Reaction Status Date / Time No Known Allergies Allergy Unverified 12/25/20 11:08 Home Medications Medication Instructions Recorded Confirmed Last Taken Type Gabapentin [Neurontin] 300 mg PO BID 12/25/20 12/25/20 Unknown History Glimepiride [Amaryl] 4 mg PO BID 12/25/20 12/25/20 Unknown History Losartan Potassium 100 mg PO QHS 12/25/20 12/25/20 Unknown History hydroCHLOROthiazide [Hctz] 12.5 mg PO QDAY 12/25/20 12/25/20 Unknown History Review of Systems Constitutional: no weight loss, no fever, no sweats Ears, nose, mouth and throat: no ear pain, no ear discharge, no tinnitis, no nose pain, no nasal congestion, no nasal discharge Breasts: no change in shape Cardiovascular: no chest pain, no orthopnea, no palpitations, no rapid/irregular heart beat, no edema, no syncope, no claudication, no leg edema Respiratory: no cough, no cough with sputum, no excessive sputum, no hemoptysis Gastrointestinal: no nausea, no vomiting, no diarrhea, no constipation, no change in bowel habits, no hematemesis Genitourinary Female: no pelvic pain, no flank pain, no dysuria, no urinary frequency, no urgency Rectal: no pain, no incontinence, no bleeding Musculoskeletal: no neck stiffness, no neck pain, no shooting arm pain, no arm numbness/tingling, no low back pain, no shooting leg pain Integumentary: no rash, no pruritis, no redness, no sores, no wounds Neurological: weakness, numbness, lack of coordination, gait dysfunction, motor disturbance Psychiatric: no anxiety, no memory loss, no sleep disturbances, no insomnia, no hypersomnia, no change in libido, no suicidal ideation, no disorientation Endocrine: no cold intolerance, no heat intolerance, no polyphagia, no polydipsia, no polyuria, no nocturia, no excessive sweating Hematologic/Lymphatic: no easy bruising, no easy bleeding, no lymphadenopathy, no lymphedema Allergic/Immunologic: no urticaria, no allergic rhinitis, no wheezing, no anaphylaxis, no angioedema Past History Past Medical History: diabetes, hypertension Past Surgical History: No surgical history, Other (Reviewed) Social history: single. denies: smoking, alcohol abuse Family history: diabetes, hypertension Medications and Allergies Allergies Allergy/AdvReac Type Severity Reaction Status Date / Time No Known Allergies Allergy Unverified 12/25/20 11:08 Home Medications Medication Instructions Recorded Confirmed Last Taken Type Gabapentin [Neurontin] 300 mg PO BID 12/25/20 12/25/20 Unknown History Glimepiride [Amaryl] 4 mg PO BID 12/25/20 12/25/20 Unknown History Losartan Potassium 100 mg PO QHS 12/25/20 12/25/20 Unknown History hydroCHLOROthiazide [Hctz] 12.5 mg PO QDAY 12/25/20 12/25/20 Unknown History Active Meds: Active Medications Acetaminophen (Acetaminophen 325 Mg Tab) 650 mg PO Q4H PRN PRN Reason: Pain, Mild (1-3) Aspirin (Aspirin Ec 81 Mg Tab) 81 mg PO QDAY [facility] Last Admin: 12/26/20 09:23 Dose: 81 mg Documented by: Atorvastatin Calcium (Atorvastatin 40 Mg Tab) 40 mg PO QHS [facility] Last Admin: 12/25/20 22:50 Dose: 40 mg Documented by: Bisacodyl (Bisacodyl 10 Mg Rect Supp) 10 mg MA QDAY PRN PRN Reason: Constipation Clopidogrel Bisulfate (Clopidogrel 75 Mg Tab) 75 mg PO QDAY [facility] Last Admin: 12/26/20 09:23 Dose: 75 mg Documented by: Enoxaparin Sodium (Enoxaparin 100 Mg/1 Ml Inj) 90 mg 1 mg/kg (90 mg) SUB-Q Q12H [facility]; Protocol Last Admin: 12/26/20 09:22 Dose: 90 mg Documented by: Gabapentin (Gabapentin 300 Mg Cap) 300 mg PO BID [facility] Last Admin: 12/26/20 09:23 Dose: 300 mg Documented by: Hydrochlorothiazide (Hydrochlorothiazide 12.5 Mg Cap) 12.5 mg PO QDAY [facility] Last Admin: 12/26/20 09:23 Dose: 12.5 mg Documented by: Ceftriaxone Sodium (Rocephin/Ns 2 Gm/100 Ml) 2 gm in 100 mls @ 200 mls/hr IV Q24H [facility]; Protocol Last Admin: 12/25/20 19:12 Dose: 200 mls/hr Documented by: Azithromycin (Zithromax/Ns) 500 mg in 250 mls @ 250 mls/hr IV Q24H [facility]; Protocol Last Admin: 12/25/20 22:48 Dose: 250 mls/hr Documented by: Magnesium Hydroxide (Magnesium Hydroxide (Mom) Oral Liqd Udc) 30 ml PO Q4H PRN PRN Reason: Constipation Metoclopramide HCl (Metoclopramide 10 Mg Tab) 10 mg PO Q6H PRN PRN Reason: Nausea And Vomiting Metoprolol Tartrate (Metoprolol Tartrate 50 Mg Tab) 50 mg PO BID [facility] Ondansetron HCl (Ondansetron 4 Mg/2 Ml Inj) 4 mg IV Q8H PRN PRN Reason: Nausea And Vomiting Promethazine HCl (Promethazine 25 Mg Rect Supp) 25 mg MA Q6H PRN PRN Reason: Nausea And Vomiting Sodium Chloride (Sodium Chloride 0.9% 10 Ml Flush Syringe) 10 ml IV PRN PRN PRN Reason: LINE FLUSH Last Admin: 12/25/20 22:50 Dose: 10 ml Documented by: Sodium Chloride (Sodium Chloride 0.9% 10 Ml Flush Syringe) 10 ml IV PRN PRN PRN Reason: LINE FLUSH Tramadol HCl (Tramadol 50 Mg Tab) 50 mg PO Q6H PRN PRN Reason: Pain, Moderate (4-6) Physical Examination - Vital Signs Vital Signs: Vital Signs Temp Pulse Resp BP Pulse Ox 97.9 F 104 H 18 183/114 97 12/25/20 11:06 12/25/20 11:06 12/25/20 11:06 12/25/20 11:06 12/25/20 11:06 - Constitutional General appearance: comfortable - EENT EENT: Present: PERRL - Respiratory Respiratory: Present: chest non-tender, lungs clear, rhonchi - Cardiovascular Cardiovascular: Present: normal S1, normal S2 Extremities: Present: no peripheral edema bilatateraly - Gastrointestinal Gastrointestinal: Present: normoactive bowel sounds - Integumentary Integumentary: Present: normal - Neurologic Cranial nerve examination: PERRL, EOMI, VFF, intact Speech examination: intact Sensorimotor examination: intact Detailed motor examination: other (left upper drift with left upper 4- as well as left lower gait not done, no sensory deficit) - Level of Consciousness 1a. Level of Consciousness: alert/keenly responsive - LOC Questions 1b. LOC Questions: answers both correctly - LOC Command 1c. LOC Commands: performs tasks correctly - Best Gaze 2. Best Gaze: normal - Visual 3. Visual: no visual loss - Facial Palsy 4. Facial Palsy: normal symmetrical movement - Motor Arm 5a. Motor Arm Left: drift 5b. Motor Arm Right: no drift - Motor Leg 6a. Motor Leg Left: drift 6b. Motor Leg Right: no drift - Limb Ataxia 7. Limb Ataxia: absent - Sensory 8. Sensory: normal - Best Language 9. Best Language: no aphasia - Dysarthria 10. Dysarthria: normal - Extinction and Inattention 11. Extinction/Inattention: no abnormality - Scoring Total Score: 2 Stroke Severity: Minor Stroke Results - Laboratory Findings CBC and BMP: 12/25/20 11:16 12/25/20 11:16 Abnormal Lab Findings: Abnormal Labs 12/25/20 12/25/20 12/25/20 11:16 11:16 14:39 Hgb 14.8 H Hct 44.0 H Irion % (Auto) 8.2 H Carbon Dioxide 35 H BUN 18 H Glucose 239 H POC Glucose Troponin T 0.288 H* 0.238 H* Total Protein 5.7 L Albumin 2.9 L Cholesterol 207 H LDL Cholesterol Direct 163 H 12/25/20 12/25/20 17:03 22:16 Hgb Hct Irion % (Auto) Carbon Dioxide BUN Glucose POC Glucose 169 H Troponin T 0.203 H* Total Protein Albumin Cholesterol LDL Cholesterol Direct Assessment and Plan Assessment and Plan # CVA new onset - pt. wake up yesterday with left side weakness -NIH#2 -Not candidate for TPA -CT brain is unremarkable -CTA brain and neck are pending -Initial BP#165/103 -Started On ASA 325 mg and Plavix 75 mg -MRI brain is pending - neuro check, -seizure precautions, - lipid panel-- LDL#163 - echocardiogram, -carotid Doppler - Cardiac monitoring -Pt/ST evaluated # NSTEMI (non-ST elevated myocardial infarction) -ACS protocol: Telemetry monitoring, serial cardiac enzymes, EKG, echocardiogram, cardiology team consulted in ED. # Diastolic CHF -Strict I's/O, monitor urine output every shift, daily weight, afterload reduction, blood pressure control, echocardiogram ordered and is pending at time of admission. # HLP -LDL#163 -Lipitor 40 mg # Pneumonia # HLP -Pneumonia protocol: Chest x-ray, CBC, CMP, IV antibiotic therapy, supplemental oxygen, pulse oximetry, blood culture. # peripheral neuropathy -Underlying DM -On Neurontine # DVT prophylaxis -SCD to bilateral lower extremities while in bed, continue therapeutic anticoagulation # Advance care planning -Disease education conducted, care plan discussed, diagnoses discussed, prognosis discussed, patient is full code, patient knowledges understanding and agree with care plan, will follow as needed
--- NOTE | 2020-12-26 14:54 | Vascular Lab Report ---
VL carotid duplex BILAT INDICATION / CLINICAL INFORMATION: stroke. COMPARISON: None available. FINDINGS: Mild plaque formation is demonstrated at both bifurcations, but velocity measurements and waveform an alysis indicate less than 50% stenosis of each internal carotid artery, according to NASCET criteria. Normal antegrade flow is demonstrated in both vertebral arteries. IMPRESSION: 1. No significant stenosis. Signer Name: David Bryson MD Signed: 12/26/2020 2:50 PM Workstation Name: [id number]
--- NOTE | 2020-12-26 16:09 | Cat Scan Report ---
CTA neck without and with intravenous contrast material CLINICAL HISTORY: MAIN TECHNIQUE: Following acquisition of a timing bolus 0.625 mm thick contiguous axial scans were obtained from aort ic arch to the skull base during rapid bolus intravenous contrast infusion. In addition to evaluation of axial source images multiplanar reconstructions were produced and reviewed for this report. 3 inocencio ne MIP reconstructions were produced and reviewed. Contrast dose report: Omnipaque 350: 100 ml, administered intravenously All CT examinations performed at this facility utilize modulated dose reduction, iterative reconstruc tion or weight-based dosing, as appropriate, to obtain a radiation dose which is as low as can reason ably be achieved. Limitations: Timing of the contrast bolus versus image acquisition is suboptimal. There is intense co ntrast enhancement of the pulmonary veins but opacification of the aorta and proximal great vessels i s limited making the proximal brachiocephalic vessels difficult to evaluate. FINDINGS: Thoracic aorta: Optimal contrast opacification of the thoracic aorta and proximal great vessels.. Right carotid artery:Mid and distal segments of the right common carotid artery have an unremarkable appearance. There is no indication of stenosis at the carotid bifurcation. Cervical portions of the R ICA have a normal appearance. Left carotid artery: Proximal small bowel left common carotid artery is poorly evaluated. Mid and dis camille segments of the left common carotid artery have an unremarkable appearance. Calcified plaque is o bserved at the proximal LICA. There is no indication of hemodynamically significant stenosis. Left ca rotid bulb has a normal appearance. Mid and distal cervical segments of the LICA are unremarkable. Posterior circulation: The proximal vertebral arteries are poorly evaluated secondary to problems wit h the contrast bolus timing. Left vertebral artery is dominant. Both vertebral arteries contribute to the basilar artery origin. Basilar artery is diminutive in size to large part to origin of bot h posterior cerebral arteries. The degree of stenosis, if any, is determined utilizing NASCET like criteria. In this case there is no indication of hemodynamically significant stenosis at the carotid bifurcations or elsewhere. Evaluation of the nonvascular soft tissue structures reveal no abnormality. There is no indication of cervical lymphadenopathy. No abnormalities are seen along the course of the airway. Visualized porti ons of the parotid glands and the submandibular salivary glands have a normal appearance. Thyroid gla nd has a normal appearance. Evaluation of the lung apices reveals no evidence of lung nodule or infil trate. Evaluation of the cervical spine is remarkable for cervical spondylosis which is most pronounced at t he C4-5, C5-6 and C6-7 levels. Central spinal canal remains adequate in size. Multifocal foraminal na rrowing is observed. IMPRESSION: 1. Limited study secondary to suboptimal coordination between image acquisition in contrast bolus. 2. No indication of hemodynamically significant stenosis at the carotid bifurcations or elsewhere. Signer Name: Orlin Jiménez MD Signed: 12/26/2020 4:05 PM Workstation Name: [id number]
--- NOTE | 2020-12-26 16:13 | Cat Scan Report ---
CTA head with intravenous contrast CLINICAL HISTORY: Cerebrovascular accident. TECHNIQUE: 0.625 mm thick contiguous axial scans were obtained from the skull base to the skull vertex during r apid bolus administration of intravenous contrast material. Multiplanar reconstructions were produced in the coronal and sagittal planes. In addition 3 plane MIP instructions were produced and reviewed for this report. The axial source images and reconstructed images were reviewed for this report. CONTRAST DOSE REPORT: Omnipaque 350: None. ml administered intravenously. All CT scans at this location are performed using CT dose reduction for ALARA by means of automated e xposure control. FINDINGS: Internal carotid arteries:Everardo, cavernous, opthalmic, clinoid and supraclinoid segments of the ICAs have an unremarkable appearance. Middle cerebral arteries:Normal and symmetrical M1 segments of the middle cerebral arteries are demon strated. No abnormalities are seen on evaluation of the insular or opercular branches. Anterior cerebral arteries:Bilaterally symmetrical A1 segments are demonstrated. No abnormalities are seen along the course of the A2 segments or their visualized pericallosal branches. Vertebral arteries: Left vertebral artery is dominant. Both vertebral arteries contribute to the basi lar artery origin. Basilar artery: Basilar artery is diminutive in size. This is in large part due to the presence of fe camille origin of both posterior cerebral arteries. Posterior cerebral arteries: origin of both posterior cerebral arteries is noted. Normal and sy mmetrical posterior cerebral arteries are demonstrated. Dural sinuses: Contrast opacification of the dural sinuses is limited. Dural sinuses are incompletely evaluated on this study. IMPRESSION: No significant abnormality on CTA head. Signer Name: Orlin Jiménez MD Signed: 12/26/2020 4:08 PM Workstation Name: [id number]
[2020-12-26 18:21] LABS: Bilirubin,Urine NEG (Negative); Blood,Urine NEG (Negative); Color,Urine Yellow (Yellow); Mucus,Urine FEW /HPF
[2020-12-26] MEDS: METOPROLOL TARTRATE 50 MG TAB PO SCH ×2 (18:32→21:25)
[2020-12-26] MEDS ORDERED: AZITHROMYCIN/NS 500 MG/250 ML 500 MG/250 ML BAG IV SCH (20:00)
[2020-12-26] MEDS ORDERED: cefTRIAXone/NS 2 GM/100 ML 2 GM/100 ML BAG IV SCH (20:00)
[2020-12-26] MEDS: ONDANSETRON 4 MG/2 ML INJ IV PRN (22:54)
[2020-12-27] MEDS: GABAPENTIN 300 MG CAP PO SCH ×2 (10:46→21:37)
[2020-12-27] MEDS: ENOXAPARIN 100 MG/1 ML INJ SUB-Q SCH ×2 (10:46→21:41)
[2020-12-27] MEDS: METOPROLOL TARTRATE 50 MG TAB PO SCH ×2 (10:46→21:38)
[2020-12-27] MEDS: hydroCHLOROthiazide 12.5 MG CAP PO SCH (10:46)
[2020-12-27] MEDS: ONDANSETRON 4 MG/2 ML INJ IV PRN (11:11)
[2020-12-27] MEDS: ASPIRIN EC 81 MG TAB PO SCH (11:56)
[2020-12-27] MEDS: CLOPIDOGREL 75 MG TAB PO SCH (11:57)
[2020-12-27] MEDS: levoFLOXacin 500 MG TAB PO SCH (12:23)
[2020-12-27] MEDS ORDERED: METOPROLOL TARTRATE 5 MG/5 ML INJ IV ONE (13:00)
--- NOTE | 2020-12-27 13:39 | Progress Note ---
Assessment and Plan Telemetry reviewed: Sinus rhythm 89. Single episode of 5 beat V. tach noted overnight. Acute CVA Neurology is following NSTEMI type II Continue to trend CE's Echocardiogram is pending. We will plan for Lexiscan MPI stress testing once patient is medically stabilized. This can be done in the outpatient setting Continue bASA, Plavix, statin, and BB. Hypertension Continue current antihypertensive regimen. Patient is on beta-talat. Neuro consult note does not mention permissive hypertension. DVT prophylaxis Patient is on Lovenox. SCDs are ordered Will follow Pt seen in conjunction with Dr. Horta, who agrees with the assessment and plan of care. - Patient Problems (1) CVA (cerebral vascular accident) Current Visit: Yes Status: Suspected Qualifiers: CVA mechanism: unspecified Qualified Code(s): I63.9 - Cerebral infarction, unspecified (2) Congestive heart failure Current Visit: Yes Status: Suspected Qualifiers: Heart failure chronicity: unspecified Qualified Code(s): I50.813 - Acute on chronic right heart failure (3) NSTEMI (non-ST elevated myocardial infarction) Current Visit: Yes Status: Acute Plan to address problem: Type 2 (4) HTN (hypertension) Current Visit: Yes Status: Chronic Qualifiers: Hypertension type: essential hypertension Qualified Code(s): I10 - Essential (primary) hypertension (5) HLD (hyperlipidemia) Current Visit: Yes Status: Chronic Qualifiers: Hyperlipidemia type: mixed hyperlipidemia Qualified Code(s): E78.2 - Mixed hyperlipidemia (6) DM2 (diabetes mellitus, type 2) Current Visit: Yes Status: Chronic (7) Neuropathy Current Visit: Yes Status: Chronic Subjective Date of service: 12/27/20 Principal diagnosis: CVA Interval history: Patient resting comfortably in bed. No chest pain or shortness of breath overnight Telemetry reviewed: Sinus rhythm 79. One episode of 5 beat V. tach noted overnight Objective Last Vital Signs Temp 98.2 F 12/27/20 11:22 Pulse 83 12/27/20 11:22 Resp 18 12/27/20 11:22 BP 173/102 12/27/20 11:22 Pulse Ox 90 12/27/20 11:22 - Physical Examination HEENT: Positive: EOMI, Normocephaly, Sinus Tenderness Neck: Positive: neck supple, trachea midline. Negative: JVD/HJR Cardiac: Positive: Reg Rate and Rhythm, S1/S2 Lungs: Positive: clear to auscultation, Normal Breath Sounds Neuro: Positive: Weakness (left hand & LLE weakness). Negative: Motor Function Intact, Coordination Normal, DTR Norm/Equal U/L Extrem Abdomen: Positive: Soft. Negative: Tender Skin: Negative: Rash Musculoskeletal: No Fluid Collection, No Pain Extremities: Present: upper extr. pulses, lower extr. pulses. Absent: edema - Imaging and Cardiology EKG: report reviewed, image reviewed Echo: pending - EKG Sinus rhythms and dysrhythmias: sinus rhythm AV and intraventricular conduction: intraventricular conducti
--- NOTE | 2020-12-27 13:44 | Progress Note ---
Assessment and Plan Assessment and plan: 65 YO Female with Obesity, HTN, DM presents to ED for evaluation. Pt reports " I feel weak". Patient states that she was in her usual state of health at bedtime which was around 2200 hrs. Patient states that she awoke from sleep at 1000 hrs. and was found to have left arm and leg weakness. Patient reports difficulty grasping and holding onto objects with her left hand as well as unsteady gait. In the ER, stroke code was called and patient was seen by teleneurologist. CT head was negative for any stroke. Other findings on admission include elevated troponin and right middle lobe pneumonia. Patient was thus admitted to the hospital for further evaluation. Cardiology and neurology consulted 12/26. She denies any chest pain this morning. For right middle lobe pneumonia, patient is on IV antibiotics. Cardiology was consulted for elevated troponin. 12/27: Patient clinically stable, no further nausea but BP still fluctuating, Discussed the finding of Pleural effusion, patient with no shortness of breath, if no improvement will recommend outpatient thoracentesis. Change abx to Levaquin due to the nausea and vomiting since starting Cefepime and azithromycin Echo is pending. Monitor and adjust Blood sugar control. - Patient Problems (1) CVA (cerebral vascular accident) Current Visit: Yes Status: Suspected Qualifiers: CVA mechanism: unspecified Qualified Code(s): I63.9 - Cerebral infarction, unspecified (2) Congestive heart failure Current Visit: Yes Status: Suspected Qualifiers: Heart failure chronicity: unspecified Qualified Code(s): I50.813 - Acute on chronic right heart failure (3) NSTEMI (non-ST elevated myocardial infarction) Current Visit: Yes Status: Acute Plan to address problem: Type 2 (4) HTN (hypertension) Current Visit: Yes Status: Chronic Qualifiers: Hypertension type: essential hypertension Qualified Code(s): I10 - Essential (primary) hypertension (5) HLD (hyperlipidemia) Current Visit: Yes Status: Chronic Qualifiers: Hyperlipidemia type: mixed hyperlipidemia Qualified Code(s): E78.2 - Mixed hyperlipidemia (6) DM2 (diabetes mellitus, type 2) Current Visit: Yes Status: Chronic (7) Right middle lobe pnuemonia (8) Neuropathy Current Visit: Yes Status: Chronic History Interval history: Patient seen and examined, initially was with nausea and vomiting but improved today. Bp was also elevated but improved also, have asked nurse to document improved numbers Hospitalist Physical - Physical exam Narrative exam: VITAL SIGNS: Reviewed. GENERAL: Awake, sitting up HEAD: No signs of head trauma. EYES: Pupils are equal. Extraocular motions intact. MOUTH: Oropharynx is normal. NECK: No adenopathy, no JVD. CHEST: Chest with diminished breath sounds bilaterally. No wheezes, rales, or rhonchi. CARDIAC: normal S1 and S2, without murmurs, gallops, or rubs. ABDOMEN: Soft, non tender and non distended. No rebound or guarding, and no masses palpated. Bowel Sounds normal. MUSCULOSKELETAL: No edema NEUROLOGIC EXAM: Alert and oriented x3. No focal neurologic deficits SKIN: No obvious lesions - Constitutional Vitals: Temp Pulse Resp BP Pulse Ox 98.2 F 83 18 173/102 90 12/27/20 11:22 12/27/20 11:22 12/27/20 11:22 12/27/20 11:22 12/27/20 11:22 General appearance: Present: no acute distress HEART Score - HEART Score Troponin: Troponin T 0.203 ng/mL (0.00-0.029) H* 12/25/20 17:03 Results - Labs CBC & Chem 7: 12/25/20 11:16 12/25/20 11:16 Labs: Laboratory Last Values WBC 7.5 K/mm3 (4.5-11.0) 12/25/20 11:16 RBC 4.80 M/mm3 (3.65-5.03) 12/25/20 11:16 Hgb 14.8 gm/dl (10.1-14.3) H 12/25/20 11:16 Hct 44.0 % (30.3-42.9) H 12/25/20 11:16 MCV 92 fl (79-97) 12/25/20 11:16 MCH 31 pg (28-32) 12/25/20 11:16 MCHC 34 % (30-34) 12/25/20 11:16 RDW 13.3 % (13.2-15.2) 12/25/20 11:16 Plt Count 272 K/mm3 (140-440) 12/25/20 11:16 Lymph % (Auto) 20.0 % (13.4-35.0) 12/25/20 11:16 [place] % (Auto) 8.2 % (0.0-7.3) H 12/25/20 11:16 Eos % (Auto) 2.8 % (0.0-4.3) 12/25/20 11:16 Baso % (Auto) 1.2 % (0.0-1.8) 12/25/20 11:16 Lymph # (Auto) 1.5 K/mm3 (1.2-5.4) 12/25/20 11:16 [place] # (Auto) 0.6 K/mm3 (0.0-0.8) 12/25/20 11:16 Eos # (Auto) 0.2 K/mm3 (0.0-0.4) 12/25/20 11:16 Baso # (Auto) 0.1 K/mm3 (0.0-0.1) 12/25/20 11:16 Seg Neutrophils % 67.8 % (40.0-70.0) 12/25/20 11:16 Seg Neutrophils # 5.1 K/mm3 (1.8-7.7) 12/25/20 11:16 PT 13.0 Sec. (12.2-14.9) 12/25/20 11:16 INR 0.99 (0.87-1.13) 12/25/20 11:16 APTT 26.4 Sec. (24.2-36.6) 12/25/20 11:16 Sodium 139 mmol/L (137-145) 12/25/20 11:16 Potassium 3.6 mmol/L (3.6-5.0) 12/25/20 11:16 Chloride 98.2 mmol/L (98-107) 12/25/20 11:16 Carbon Dioxide 35 mmol/L (22-30) H 12/25/20 11:16 Anion Gap 9 mmol/L 12/25/20 11:16 BUN 18 mg/dL (7-17) H 12/25/20 11:16 Creatinine 1.0 mg/dL (0.6-1.2) 12/25/20 11:16 Estimated GFR 56 ml/min 12/25/20 11:16 BUN/Creatinine Ratio 18 % 12/25/20 11:16 Glucose 239 mg/dL (65-100) H 12/25/20 11:16 POC Glucose 217 mg/dL (70-105) H 12/26/20 23:22 Calcium 8.4 mg/dL (8.4-10.2) 12/25/20 11:16 Total Bilirubin 0.40 mg/dL (0.1-1.2) 12/25/20 11:16 AST 24 units/L (5-40) 12/25/20 11:16 ALT 22 units/L (7-56) 12/25/20 11:16 Alkaline Phosphatase 92 units/L (35-129) 12/25/20 11:16 Troponin T 0.203 ng/mL (0.00-0.029) H* 12/25/20 17:03 NT-Pro-B Natriuret Pep 2638 pg/mL (0-900) H 12/26/20 12:26 Total Protein 5.7 g/dL (6.3-8.2) L 12/25/20 11:16 Albumin 2.9 g/dL (3.9-5) L 12/25/20 11:16 Albumin/Globulin Ratio 1.0 % 12/25/20 11:16 Triglycerides 106 mg/dL (2-149) 12/25/20 11:16 Cholesterol 207 mg/dL (50-199) H 12/25/20 11:16 LDL Cholesterol Direct 163 mg/dL (50-130) H 12/25/20 11:16 HDL Cholesterol 47 mg/dL (40-59) 12/25/20 11:16 Cholesterol/HDL Ratio 4.40 % 12/25/20 11:16 Lipase 15 units/L (13-60) 12/25/20 11:16 Urine Color Yellow (Yellow) 12/26/20 18:01 Urine Turbidity Clear (Clear) 12/26/20 18:01 Urine pH 6.0 (5.0-7.0) 12/26/20 18:01 Ur Specific [place] 1.026 (1.003-1.030) 12/26/20 18:01 Urine Protein 30 mg/dl mg/dL (Negative) 12/26/20 18:01 Urine Glucose (UA) 50 mg/dL (Negative) 12/26/20 18:01 Urine Ketones Neg mg/dL (Negative) 12/26/20 18:01 Urine Blood Neg (Negative) 12/26/20 18:01 Urine Nitrite Neg (Negative) 12/26/20 18:01 Urine Bilirubin Neg (Negative) 12/26/20 18:01 Urine Urobilinogen 4.0 mg/dL (<2.0) 12/26/20 18:01 Ur Leukocyte Esterase Tr (Negative) 12/26/20 18:01 Urine WBC (Auto) 2.0 /HPF (0.0-6.0) 12/26/20 18:01 Urine RBC (Auto) 1.0 /HPF (0.0-6.0) 12/26/20 18:01 U Epithel Cells (Auto) 2.0 /HPF (0-13.0) 12/26/20 18:01 Urine Mucus Few /HPF 12/26/20 18:01 Carter/IV: Voiding Method Toilet Active Medications - Current Medications Current Medications: Generic Name Dose Route Start Last Admin Trade Name Freq PRN Reason Stop Dose Admin Acetaminophen 650 mg 12/25/20 15:06 Acetaminophen 325 Mg Tab PO Q4H PRN Pain, Mild (1-3) Aspirin 81 mg 12/26/20 10:00 12/27/20 11:56 Aspirin Ec 81 Mg Tab PO Not Given QDAY [facility] Atorvastatin Calcium 40 mg 12/25/20 22:00 12/26/20 21:25 Atorvastatin 40 Mg Tab PO 40 mg QHS ALEXIS Administration Bisacodyl 10 mg 12/25/20 15:06 Bisacodyl 10 Mg Rect Supp SC QDAY PRN Constipation Clopidogrel Bisulfate 75 mg 12/26/20 10:00 12/27/20 11:57 Clopidogrel 75 Mg Tab PO Not Given QDAY [facility] Enoxaparin Sodium 90 mg 12/25/20 20:00 12/27/20 10:46 Enoxaparin 100 Mg/1 Ml Inj 1 mg/kg (90 mg) Not Given SUB-Q Q12H [facility] Protocol Gabapentin 300 mg 12/25/20 22:00 12/27/20 10:46 Gabapentin 300 Mg Cap PO Not Given BID ALEXIS Hydrochlorothiazide 12.5 mg 12/26/20 10:00 12/27/20 10:46 Hydrochlorothiazide 12.5 Mg Cap PO Not Given QDAY [facility] Levofloxacin 500 mg 12/27/20 13:00 12/27/20 12:23 Levofloxacin 500 Mg Tab PO 500 mg Q24H ALEXIS Administration Protocol Magnesium Hydroxide 30 ml 12/25/20 15:06 Magnesium Hydroxide (Mom) Oral Liqd Udc PO Q4H PRN Constipation Metoclopramide HCl 10 mg 12/25/20 15:06 12/27/20 07:46 Metoclopramide 10 Mg Tab PO 10 mg Q6H PRN Administration Nausea And Vomiting Metoprolol Tartrate 50 mg 12/26/20 12:00 12/27/20 10:46 Metoprolol Tartrate 50 Mg Tab PO Not Given BID ALEXIS Ondansetron HCl 4 mg 12/25/20 15:06 12/27/20 11:11 Ondansetron 4 Mg/2 Ml Inj IV 4 mg Q8H PRN Administration Nausea And Vomiting Promethazine HCl 25 mg 12/25/20 15:06 Promethazine 25 Mg Rect Supp SC Q6H PRN Nausea And Vomiting Sodium Chloride 10 ml 12/25/20 15:06 12/25/20 22:50 Sodium Chloride 0.9% 10 Ml Flush Syringe IV 10 ml PRN PRN Administration LINE FLUSH Sodium Chloride 10 ml 12/25/20 15:06 Sodium Chloride 0.9% 10 Ml Flush Syringe IV PRN PRN LINE FLUSH Tramadol HCl 50 mg 12/25/20 15:06 12/26/20 22:54 Tramadol 50 Mg Tab PO 50 mg Q6H PRN Administration Pain, Moderate (4-6)
[2020-12-27] MEDS ORDERED: hydrALAZINE 20 MG/1 ML INJ IV PRN (13:53)
[2020-12-27] MEDS ORDERED: NON-FORMULARY EACH (Losartan Potassium [Losartan Potassium] 100 MG Tablet) PO SCH (22:00)
[2020-12-27] MEDS ORDERED: AZITHROMYCIN 250 MG TAB PO SCH (22:00)
[2020-12-27] MEDS ORDERED: LOSARTAN 50 MG TAB PO SCH (22:00)
[2020-12-28 06:14] LABS: Calcium 8.5 mg/dL (8.4-10.2)
[2020-12-28] MEDS ORDERED: SODIUM CHLORIDE 0.9% 1000 ML 1,000 ML IV SCH (08:00)
[2020-12-28] MEDS: CLOPIDOGREL 75 MG TAB PO SCH (10:38)
[2020-12-28] MEDS: GABAPENTIN 300 MG CAP PO SCH ×2 (10:38→21:31)
[2020-12-28] MEDS: METOPROLOL TARTRATE 50 MG TAB PO SCH ×2 (10:38→21:30)
[2020-12-28] MEDS: amLODIPine 10 MG TAB PO SCH (10:38)
[2020-12-28] MEDS: ASPIRIN EC 81 MG TAB PO SCH (10:38)
--- NOTE | 2020-12-28 11:56 | Progress Note ---
Assessment and Plan Assessment and plan: #CVA CT head negative for any acute infarct CTA head and neck, MRI brain - negative for CVA Echo shows systolic HF Continue aspirin and statins Neurology evaluation PT/OT ordered #NSTEMI Cardiology following May need ischemic evaluation given elevated troponin and low EF #Systolic heart failure May need ischemic evaluation will defer to cardiology #Right middle lobe pneumonia Levaquin #DVT ppx - Lovenox History Interval history: 65 YO Female with Obesity, HTN, DM presents to ED for evaluation. Pt reports " I feel weak". Patient states that she was in her usual state of health at bedtime which was around 2200 hrs. Patient states that she awoke from sleep at 1000 hrs. and was found to have left arm and leg weakness. Patient reports difficulty grasping and holding onto objects with her left hand as well as unsteady gait. In the ER, stroke code was called and patient was seen by teleneurologist. CT head was negative for any stroke. Other findings on admission include elevated troponin and right middle lobe pneumonia. Patient was thus admitted to the hospital for further evaluation. Cardiology and neurology consulted 12/26. She denies any chest pain this morning. For right middle lobe pneumonia, patient is on IV antibiotics. Cardiology was consulted for elevated troponin. 12/27: Patient clinically stable, no further nausea but BP still fluctuating, Discussed the finding of Pleural effusion, patient with no shortness of breath, if no improvement will recommend outpatient thoracentesis. Change abx to Levaquin due to the nausea and vomiting since starting Cefepime and azithromycin Echo is pending. Monitor and adjust Blood sugar control. 12/28. Echocardiogram shows severe LV dysfunction with EF of 15 to 20%. Cardiology is following. Patient may need ischemic work-up. Hospitalist Physical - Physical exam Narrative exam: VITAL SIGNS: Reviewed. GENERAL: Awake HEAD: No signs of head trauma. EYES: Pupils are equal. Extraocular motions intact. MOUTH: Oropharynx is normal. NECK: No adenopathy, no JVD. CHEST: Chest with diminished breath sounds bilaterally. No wheezes, rales, or rhonchi. CARDIAC: normal S1 and S2, without murmurs, gallops, or rubs. ABDOMEN: Soft, non tender and non distended. No rebound or guarding, and no masses palpated. Bowel Sounds normal. MUSCULOSKELETAL: No edema NEUROLOGIC EXAM: Alert and oriented x3. No focal neurologic deficits SKIN: No obvious lesions - Constitutional Vitals: Temp Pulse Resp BP Pulse Ox 94.9 F L 80 18 113/69 94 12/28/20 07:48 12/28/20 08:24 12/28/20 07:48 12/28/20 07:48 12/28/20 07:48 HEART Score - HEART Score Troponin: Troponin T 0.159 ng/mL (0.00-0.029) H* D 12/28/20 05:05 Results - Labs CBC & Chem 7: 12/25/20 11:16 12/28/20 05:05 Labs: Laboratory Last Values WBC 7.5 K/mm3 (4.5-11.0) 12/25/20 11:16 RBC 4.80 M/mm3 (3.65-5.03) 12/25/20 11:16 Hgb 14.8 gm/dl (10.1-14.3) H 12/25/20 11:16 Hct 44.0 % (30.3-42.9) H 12/25/20 11:16 MCV 92 fl (79-97) 12/25/20 11:16 MCH 31 pg (28-32) 12/25/20 11:16 MCHC 34 % (30-34) 12/25/20 11:16 RDW 13.3 % (13.2-15.2) 12/25/20 11:16 Plt Count 272 K/mm3 (140-440) 12/25/20 11:16 Lymph % (Auto) 20.0 % (13.4-35.0) 12/25/20 11:16 [place] % (Auto) 8.2 % (0.0-7.3) H 12/25/20 11:16 Eos % (Auto) 2.8 % (0.0-4.3) 12/25/20 11:16 Baso % (Auto) 1.2 % (0.0-1.8) 12/25/20 11:16 Lymph # (Auto) 1.5 K/mm3 (1.2-5.4) 12/25/20 11:16 [place] # (Auto) 0.6 K/mm3 (0.0-0.8) 12/25/20 11:16 Eos # (Auto) 0.2 K/mm3 (0.0-0.4) 12/25/20 11:16 Baso # (Auto) 0.1 K/mm3 (0.0-0.1) 12/25/20 11:16 Seg Neutrophils % 67.8 % (40.0-70.0) 12/25/20 11:16 Seg Neutrophils # 5.1 K/mm3 (1.8-7.7) 12/25/20 11:16 PT 13.0 Sec. (12.2-14.9) 12/25/20 11:16 INR 0.99 (0.87-1.13) 12/25/20 11:16 APTT 26.4 Sec. (24.2-36.6) 12/25/20 11:16 Sodium 140 mmol/L (137-145) 12/28/20 05:05 Potassium 4.2 mmol/L (3.6-5.0) 12/28/20 05:05 Chloride 97.8 mmol/L (98-107) L 12/28/20 05:05 Carbon Dioxide 33 mmol/L (22-30) H 12/28/20 05:05 Anion Gap 13 mmol/L 12/28/20 05:05 BUN 36 mg/dL (7-17) H 12/28/20 05:05 Creatinine 1.7 mg/dL (0.6-1.2) H D 12/28/20 05:05 Estimated GFR 30 ml/min 12/28/20 05:05 BUN/Creatinine Ratio 21 % 12/28/20 05:05 Glucose 196 mg/dL (65-100) H 12/28/20 05:05 POC Glucose 217 mg/dL (70-105) H 12/26/20 23:22 Calcium 8.5 mg/dL (8.4-10.2) 12/28/20 05:05 Total Bilirubin 0.40 mg/dL (0.1-1.2) 12/25/20 11:16 AST 24 units/L (5-40) 12/25/20 11:16 ALT 22 units/L (7-56) 12/25/20 11:16 Alkaline Phosphatase 92 units/L (35-129) 12/25/20 11:16 Troponin T 0.159 ng/mL (0.00-0.029) H* D 12/28/20 05:05 NT-Pro-B Natriuret Pep 2638 pg/mL (0-900) H 12/26/20 12:26 Total Protein 5.7 g/dL (6.3-8.2) L 12/25/20 11:16 Albumin 2.9 g/dL (3.9-5) L 12/25/20 11:16 Albumin/Globulin Ratio 1.0 % 12/25/20 11:16 Triglycerides 106 mg/dL (2-149) 12/25/20 11:16 Cholesterol 207 mg/dL (50-199) H 12/25/20 11:16 LDL Cholesterol Direct 163 mg/dL (50-130) H 12/25/20 11:16 HDL Cholesterol 47 mg/dL (40-59) 12/25/20 11:16 Cholesterol/HDL Ratio 4.40 % 12/25/20 11:16 Lipase 15 units/L (13-60) 12/25/20 11:16 Urine Color Yellow (Yellow) 12/26/20 18:01 Urine Turbidity Clear (Clear) 12/26/20 18:01 Urine pH 6.0 (5.0-7.0) 12/26/20 18:01 Ur Specific [place] 1.026 (1.003-1.030) 12/26/20 18:01 Urine Protein 30 mg/dl mg/dL (Negative) 12/26/20 18:01 Urine Glucose (UA) 50 mg/dL (Negative) 12/26/20 18:01 Urine Ketones Neg mg/dL (Negative) 12/26/20 18:01 Urine Blood Neg (Negative) 12/26/20 18:01 Urine Nitrite Neg (Negative) 12/26/20 18:01 Urine Bilirubin Neg (Negative) 12/26/20 18:01 Urine Urobilinogen 4.0 mg/dL (<2.0) 12/26/20 18:01 Ur Leukocyte Esterase Tr (Negative) 12/26/20 18:01 Urine WBC (Auto) 2.0 /HPF (0.0-6.0) 12/26/20 18:01 Urine RBC (Auto) 1.0 /HPF (0.0-6.0) 12/26/20 18:01 U Epithel Cells (Auto) 2.0 /HPF (0-13.0) 12/26/20 18:01 Urine Mucus Few /HPF 12/26/20 18:01 Carter/IV: Voiding Method Toilet Active Medications - Current Medications Current Medications: Generic Name Dose Route Start Last Admin Trade Name Freq PRN Reason Stop Dose Admin Acetaminophen 650 mg 12/25/20 15:06 Acetaminophen 325 Mg Tab PO Q4H PRN Pain, Mild (1-3) Amlodipine Besylate 10 mg 12/28/20 10:00 12/28/20 10:38 Amlodipine 10 Mg Tab PO 10 mg QDAY [facility]LEX[facility] Administration Aspirin 81 mg 12/26/20 10:00 12/28/20 10:38 Aspirin Ec 81 Mg Tab PO 81 mg QDAY ALEXIS Administration Atorvastatin Calcium 40 mg 12/25/20 22:00 12/27/20 21:38 Atorvastatin 40 Mg Tab PO 40 mg QHS ALEXIS Administration Bisacodyl 10 mg 12/25/20 15:06 Bisacodyl 10 Mg Rect Supp [place] QDAY PRN Constipation Clopidogrel Bisulfate 75 mg 12/26/20 10:00 12/28/20 10:38 Clopidogrel 75 Mg Tab PO 75 mg QDAY ALEXIS Administration Enoxaparin Sodium 40 mg 12/28/20 22:00 Enoxaparin 40 Mg/0.4 Ml Inj SUB-Q QDAY@2200 [facility] Protocol Gabapentin 300 mg 12/25/20 22:00 12/28/20 10:38 Gabapentin 300 Mg Cap PO 300 mg BID ALEXIS Administration Hydralazine HCl 10 mg 12/27/20 13:53 Hydralazine 20 Mg/1 Ml Inj IV Q4HR PRN Hypertension Sodium Chloride 1,000 mls @ 60 mls/hr 12/28/20 08:00 Nacl 0.9% 1000 Ml IV DIRECT ALEXIS Levofloxacin 500 mg 12/27/20 13:00 12/27/20 12:23 Levofloxacin 500 Mg Tab PO 12/31/20 13:01 500 mg Q24H ALEXIS Administration Protocol Magnesium Hydroxide 30 ml 12/25/20 15:06 Magnesium Hydroxide (Mom) Oral Liqd Udc PO Q4H PRN Constipation Metoclopramide HCl 10 mg 12/25/20 15:06 12/27/20 07:46 Metoclopramide 10 Mg Tab PO 10 mg Q6H PRN Administration Nausea And Vomiting Metoprolol Tartrate 50 mg 12/26/20 12:00 12/28/20 10:38 Metoprolol Tartrate 50 Mg Tab PO 50 mg BID ALEXIS Administration Ondansetron HCl 4 mg 12/25/20 15:06 12/27/20 11:11 Ondansetron 4 Mg/2 Ml Inj IV 4 mg Q8H PRN Administration Nausea And Vomiting Promethazine HCl 25 mg 12/25/20 15:06 12/27/20 14:12 Promethazine 25 Mg Rect Supp [place] 25 mg Q6H PRN Administration Nausea And Vomiting Sodium Chloride 10 ml 12/25/20 15:06 Sodium Chloride 0.9% 10 Ml Flush Syringe IV PRN PRN LINE FLUSH Tramadol HCl 50 mg 12/25/20 15:06 12/26/20 22:54 Tramadol 50 Mg Tab PO 50 mg Q6H PRN Administration Pain, Moderate (4-6)
--- NOTE | 2020-12-28 12:48 | Electrocardiograph Report ---
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
--- NOTE | 2020-12-28 12:57 | Electrocardiograph Report ---
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
[2020-12-28] MEDS: levoFLOXacin 500 MG TAB PO SCH (14:46)
[2020-12-28 14:51] LABS: Calcium 8.5 mg/dL (8.4-10.2)
--- NOTE | 2020-12-28 15:31 | Progress Note ---
Assessment and Plan Telemetry reviewed: Sinus rhythm 89. Single episode of 5 beat V. tach noted overnight. Acute CVA Neurology is following NSTEMI type II Continue to trend CE's Echocardiogram reviewed (12/25/2020): LVEF is 15 to 20%. Left ventricle is mildly dilated. Mild concentric LVH. Severe global hypokinesis of the left ventricle. Moderate left ventricular diastolic dysfunction. RV SF is mildly reduced. Saline bubble contrast intravenous injection does not demonstrate PFO. Moderate TR. RVSP is 41 mmHg. We will plan for Lexiscan MPI stress testing once patient is medically stabilized. This can be done in the outpatient setting Continue bASA, Plavix, statin, and BB. Cardiomyopathy EF 15 to 20%. Continue metoprolol, ASA 81 mg, atorvastatin 40 mg. No CARI inhibitor in setting of acute kidney injury. We will plan to start patient on lisinopril once ANGELLA is resolved. Continue to monitor on telemetry. Heart failure with reduced ejection fraction Patient has bilateral lower extremity edema. Will start gentle diuresis in setting of ANGELLA. Initiate Lasix 20 mg IV daily. Acute kidney injury No ACEI/ARB in setting of acute kidney injury. Avoid nephrotoxic agents. Hypertension Continue current antihypertensive regimen. Patient is on beta-talat. Neuro consult note does not mention permissive hypertension. DVT prophylaxis Patient is on Lovenox. SCDs are ordered Will follow Pt seen in conjunction with Dr. Horta, who agrees with the assessment and plan of care. - Patient Problems (1) CVA (cerebral vascular accident) Current Visit: Yes Status: Suspected Qualifiers: CVA mechanism: unspecified Qualified Code(s): I63.9 - Cerebral infarction, unspecified (2) Congestive heart failure Current Visit: Yes Status: Suspected Qualifiers: Heart failure chronicity: unspecified Qualified Code(s): I50.813 - Acute on chronic right heart failure (3) NSTEMI (non-ST elevated myocardial infarction) Current Visit: Yes Status: Acute Plan to address problem: Type 2 (4) HTN (hypertension) Current Visit: Yes Status: Chronic Qualifiers: Hypertension type: essential hypertension Qualified Code(s): I10 - Essential (primary) hypertension (5) HLD (hyperlipidemia) Current Visit: Yes Status: Chronic Qualifiers: Hyperlipidemia type: mixed hyperlipidemia Qualified Code(s): E78.2 - Mixed hyperlipidemia (6) DM2 (diabetes mellitus, type 2) Current Visit: Yes Status: Chronic (7) Neuropathy Current Visit: Yes Status: Chronic Subjective Date of service: 12/28/20 Principal diagnosis: CVA Interval history: Patient resting comfortably in bed. No chest pain or shortness of breath overnight Telemetry reviewed: Sinus rhythm 76. Episode of 4 beat V. tach noted overnight Objective Last Vital Signs Temp 98.0 F 12/28/20 11:39 Pulse 73 12/28/20 11:39 Resp 16 12/28/20 11:39 BP 130/82 12/28/20 11:39 Pulse Ox 95 12/28/20 11:39 - Physical Examination General: No Apparent Distress HEENT: Positive: EOMI, Normocephaly, Sinus Tenderness Neck: Positive: neck supple, trachea midline. Negative: JVD/HJR Cardiac: Positive: Reg Rate and Rhythm, S1/S2 Lungs: Positive: clear to auscultation, Normal Breath Sounds Neuro: Positive: Weakness (left hand & LLE weakness). Negative: Motor Function Intact, Coordination Normal, DTR Norm/Equal U/L Extrem Abdomen: Positive: Soft. Negative: Tender Skin: Negative: Rash Musculoskeletal: No Fluid Collection, No Pain Extremities: Present: upper extr. pulses, lower extr. pulses, +1 Edema - Labs and Meds Comprehensive Metabolic Panel 12/28/20 12/28/20 Range/Units 05:05 12:58 Sodium 140 137 (137-145) mmol/L Potassium 4.2 4.1 (3.6-5.0) mmol/L Chloride 97.8 L 96.1 L (98-107) mmol/L Carbon Dioxide 33 H 32 H (22-30) mmol/L BUN 36 H 40 H (7-17) mg/dL Creatinine 1.7 H D 1.8 H (0.6-1.2) mg/dL Glucose 196 H 257 H (65-100) mg/dL Calcium 8.5 8.5 (8.4-10.2) mg/dL - Imaging and Cardiology EKG: report reviewed, image reviewed Echo: pending - Telemetry EKG Rhythm: Sinus Rhythm - EKG Sinus rhythms and dysrhythmias: sinus rhythm AV and intraventricular conduction: intraventricular conducti
[2020-12-28] MEDS: FUROSEMIDE 20 MG/2 ML INJ IV SCH (17:03)
[2020-12-28] MEDS: ENOXAPARIN 40 MG/0.4 ML INJ SUB-Q SCH (21:32)
--- NOTE | 2020-12-29 09:04 | Progress Note ---
Assessment and Plan Assessment and plan: #CVA CT head negative for any acute infarct CTA head and neck - no significant stenosis MRI brain pending. Echo shows systolic HF Continue aspirin and statins Neurology evaluation appreciated. PT/OT ordered #NSTEMI Cardiology following Ischemic evaluation per cardiology #Systolic heart failure EF 15-20% May need ischemic evaluation will defer to cardiology #Right middle lobe pneumonia Continue Levaquin #DVT ppx - Lovenox History Interval history: 65 YO Female with Obesity, HTN, DM presents to ED for evaluation. Pt reports " I feel weak". Patient states that she was in her usual state of health at bedtime which was around 2200 hrs. Patient states that she awoke from sleep at 1000 hrs. and was found to have left arm and leg weakness. Patient reports difficulty grasping and holding onto objects with her left hand as well as unsteady gait. In the ER, stroke code was called and patient was seen by teleneurologist. CT head was negative for any stroke. Other findings on admission include elevated troponin and right middle lobe pneumonia. Patient was thus admitted to the hospital for further evaluation. Cardiology and neurology consulted 12/26. She denies any chest pain this morning. For right middle lobe pneumonia, patient is on IV antibiotics. Cardiology was consulted for elevated troponin. 12/27: Patient clinically stable, no further nausea but BP still fluctuating, Discussed the finding of Pleural effusion, patient with no shortness of breath, if no improvement will recommend outpatient thoracentesis. Change abx to Levaquin due to the nausea and vomiting since starting Cefepime and azithromycin Echo is pending. Monitor and adjust Blood sugar control. 12/28. Echocardiogram shows severe LV dysfunction with EF of 15 to 20%. No PFO or septal defects seen. Cardiology is following. Patient may need ischemic work-up. 12/29. Patient to have ischemic work up as outpatient. She is on diuretics. Cr bumped to 1.8 yesterday. AM BMP pending. Consider holding lasix. MRI brain result is still pending. Hospitalist Physical - Physical exam Narrative exam: VITAL SIGNS: Reviewed. GENERAL: Awake HEAD: No signs of head trauma. EYES: Pupils are equal. Extraocular motions intact. MOUTH: Oropharynx is normal. NECK: No adenopathy, no JVD. CHEST: Chest with diminished breath sounds bilaterally. No wheezes, rales, or rhonchi. CARDIAC: normal S1 and S2, without murmurs, gallops, or rubs. ABDOMEN: Soft, non tender and non distended. No rebound or guarding, and no masses palpated. Bowel Sounds normal. MUSCULOSKELETAL: No edema NEUROLOGIC EXAM: Alert and oriented x3. No focal neurologic deficits SKIN: No obvious lesions - Constitutional Vitals: Temp Pulse Resp BP Pulse Ox 98.0 F 73 18 145/86 92 12/29/20 07:35 12/29/20 07:36 12/29/20 07:35 12/29/20 07:35 12/29/20 07:36 HEART Score - HEART Score Troponin: Troponin T 0.159 ng/mL (0.00-0.029) H* D 12/28/20 05:05 Results - Labs CBC & Chem 7: 12/25/20 11:16 12/28/20 12:58 Labs: Laboratory Last Values WBC 7.5 K/mm3 (4.5-11.0) 12/25/20 11:16 RBC 4.80 M/mm3 (3.65-5.03) 12/25/20 11:16 Hgb 14.8 gm/dl (10.1-14.3) H 12/25/20 11:16 Hct 44.0 % (30.3-42.9) H 12/25/20 11:16 MCV 92 fl (79-97) 12/25/20 11:16 MCH 31 pg (28-32) 12/25/20 11:16 MCHC 34 % (30-34) 12/25/20 11:16 RDW 13.3 % (13.2-15.2) 12/25/20 11:16 Plt Count 272 K/mm3 (140-440) 12/25/20 11:16 Lymph % (Auto) 20.0 % (13.4-35.0) 12/25/20 11:16 [place] % (Auto) 8.2 % (0.0-7.3) H 12/25/20 11:16 Eos % (Auto) 2.8 % (0.0-4.3) 12/25/20 11:16 Baso % (Auto) 1.2 % (0.0-1.8) 12/25/20 11:16 Lymph # (Auto) 1.5 K/mm3 (1.2-5.4) 12/25/20 11:16 [place] # (Auto) 0.6 K/mm3 (0.0-0.8) 12/25/20 11:16 Eos # (Auto) 0.2 K/mm3 (0.0-0.4) 12/25/20 11:16 Baso # (Auto) 0.1 K/mm3 (0.0-0.1) 12/25/20 11:16 Seg Neutrophils % 67.8 % (40.0-70.0) 12/25/20 11:16 Seg Neutrophils # 5.1 K/mm3 (1.8-7.7) 12/25/20 11:16 PT 13.0 Sec. (12.2-14.9) 12/25/20 11:16 INR 0.99 (0.87-1.13) 12/25/20 11:16 APTT 26.4 Sec. (24.2-36.6) 12/25/20 11:16 Sodium 137 mmol/L (137-145) 12/28/20 12:58 Potassium 4.1 mmol/L (3.6-5.0) 12/28/20 12:58 Chloride 96.1 mmol/L (98-107) L 12/28/20 12:58 Carbon Dioxide 32 mmol/L (22-30) H 12/28/20 12:58 Anion Gap 13 mmol/L 12/28/20 12:58 BUN 40 mg/dL (7-17) H 12/28/20 12:58 Creatinine 1.8 mg/dL (0.6-1.2) H 12/28/20 12:58 Estimated GFR 28 ml/min 12/28/20 12:58 BUN/Creatinine Ratio 22 % 12/28/20 12:58 Glucose 257 mg/dL (65-100) H 12/28/20 12:58 POC Glucose 217 mg/dL (70-105) H 12/26/20 23:22 Calcium 8.5 mg/dL (8.4-10.2) 12/28/20 12:58 Total Bilirubin 0.40 mg/dL (0.1-1.2) 12/25/20 11:16 AST 24 units/L (5-40) 12/25/20 11:16 ALT 22 units/L (7-56) 12/25/20 11:16 Alkaline Phosphatase 92 units/L (35-129) 12/25/20 11:16 Troponin T 0.159 ng/mL (0.00-0.029) H* D 12/28/20 05:05 NT-Pro-B Natriuret Pep 2638 pg/mL (0-900) H 12/26/20 12:26 Total Protein 5.7 g/dL (6.3-8.2) L 12/25/20 11:16 Albumin 2.9 g/dL (3.9-5) L 12/25/20 11:16 Albumin/Globulin Ratio 1.0 % 12/25/20 11:16 Triglycerides 106 mg/dL (2-149) 12/25/20 11:16 Cholesterol 207 mg/dL (50-199) H 12/25/20 11:16 LDL Cholesterol Direct 163 mg/dL (50-130) H 12/25/20 11:16 HDL Cholesterol 47 mg/dL (40-59) 12/25/20 11:16 Cholesterol/HDL Ratio 4.40 % 12/25/20 11:16 Lipase 15 units/L (13-60) 12/25/20 11:16 Urine Color Yellow (Yellow) 12/26/20 18:01 Urine Turbidity Clear (Clear) 12/26/20 18: Urine pH 6.0 (5.0-7.0) 12/26/20 18:01 Ur Specific [place] 1.026 (1.003-1.030) 12/26/20 18:01 Urine Protein 30 mg/dl mg/dL (Negative) 12/26/20 18:01 Urine Glucose (UA) 50 mg/dL (Negative) 12/26/20 18:01 Urine Ketones Neg mg/dL (Negative) 12/26/20 18:01 Urine Blood Neg (Negative) 12/26/20 18: Urine Nitrite Neg (Negative) 12/26/20 18: Urine Bilirubin Neg (Negative) 12/26/20 18:01 Urine Urobilinogen 4.0 mg/dL (<2.0) 12/26/20 18:01 Ur Leukocyte Esterase Tr (Negative) 12/26/20 18:01 Urine WBC (Auto) 2.0 /HPF (0.0-6.0) 12/26/20 18:01 Urine RBC (Auto) 1.0 /HPF (0.0-6.0) 12/26/20 18:01 U Epithel Cells (Auto) 2.0 /HPF (0-13.0) 12/26/20 18:01 Urine Mucus Few /HPF 12/26/20 18:01 Carter/IV: Voiding Method Condom Catheter Active Medications - Current Medications Current Medications: Generic Name Dose Route Start Last Admin Trade Name Freq PRN Reason Stop Dose Admin Acetaminophen 650 mg 12/25/20 15:06 Acetaminophen 325 Mg Tab PO Q4H PRN Pain, Mild (1-3) Amlodipine Besylate 10 mg 12/28/20 10:00 12/28/20 10:38 Amlodipine 10 Mg Tab PO 10 mg QDAY ALEXIS Administration Aspirin 81 mg 12/26/20 10:00 12/28/20 10:38 Aspirin Ec 81 Mg Tab PO 81 mg QDAY ALEXIS Administration Atorvastatin Calcium 40 mg 12/25/20 22:00 12/28/20 21:30 Atorvastatin 40 Mg Tab PO 40 mg QHS ALEXIS Administration Bisacodyl 10 mg 12/25/20 15:06 Bisacodyl 10 Mg Rect Supp [place] QDAY PRN Constipation Clopidogrel Bisulfate 75 mg 12/26/20 10:00 12/28/20 10:38 Clopidogrel 75 Mg Tab PO 75 mg QDAY ALEXIS Administration Enoxaparin Sodium 40 mg 12/28/20 22:00 12/28/20 21:32 Enoxaparin 40 Mg/0.4 Ml Inj SUB-Q Not Given QDAY@2200 [facility] Protocol Furosemide 20 mg 12/28/20 16:00 12/28/20 17:03 Furosemide 20 Mg/2 Ml Inj IV 20 mg QDAY ALEXIS Administration Gabapentin 300 mg 12/25/20 22:00 12/28/20 21:31 Gabapentin 300 Mg Cap PO 300 mg BID ALEXIS Administration Hydralazine HCl 10 mg 12/27/20 13:53 Hydralazine 20 Mg/1 Ml Inj IV Q4HR PRN Hypertension Hydralazine HCl 10 mg 12/29/20 09:00 Hydralazine 10 Mg Tab PO Q8HR [facility] Sodium Chloride 1,000 mls @ 60 mls/hr 12/28/20 08:00 Nacl 0.9% 1000 Ml IV DIRECT ALEXIS Levofloxacin 750 mg 12/30/20 10:00 Levofloxacin 750 Mg Tab PO 01/03/21 10:01 Q48H ALEXIS Protocol Magnesium Hydroxide 30 ml 12/25/20 15:06 Magnesium Hydroxide (Mom) Oral Liqd Udc PO Q4H PRN Constipation Metoclopramide HCl 10 mg 12/25/20 15:06 12/27/20 07:46 Metoclopramide 10 Mg Tab PO 10 mg Q6H PRN Administration Nausea And Vomiting Metoprolol Tartrate 50 mg 12/26/20 12:00 12/28/20 21:30 Metoprolol Tartrate 50 Mg Tab PO 50 mg BID ALEXIS Administration Ondansetron HCl 4 mg 12/25/20 15:06 12/27/20 11:11 Ondansetron 4 Mg/2 Ml Inj IV 4 mg Q8H PRN Administration Nausea And Vomiting Promethazine HCl 25 mg 12/25/20 15:06 12/27/20 14:12 Promethazine 25 Mg Rect Supp [place] 25 mg Q6H PRN Administration Nausea And Vomiting Sodium Chloride 10 ml 12/25/20 15:06 Sodium Chloride 0.9% 10 Ml Flush Syringe IV PRN PRN LINE FLUSH Tramadol HCl 50 mg 12/25/20 15:06 12/26/20 22:54 Tramadol 50 Mg Tab PO 50 mg Q6H PRN Administration Pain, Moderate (4-6)
--- NOTE | 2020-12-29 09:39 | Magnetic Resonance Report ---
MRI BRAIN WITHOUT CONTRAST INDICATION / CLINICAL INFORMATION: Left arm weakness. TECHNIQUE: Multiplanar, multisequence MR images of the brain were obtained. COMPARISON: Head CT on 12/25/2020 FINDINGS: BRAIN / INTRACRANIAL CONTENTS: There is a small acute cortical infarct in the right mid precentral gy joceline. There is no associated hemorrhage or adverse mass effect. There are moderate chronic small vesse l ischemic changes in the cerebral white matter. Ventricular and cisternal size appears normal for ag e. CRANIOCERVICAL JUNCTION: No significant abnormality. VASCULAR FLOW-VOIDS: No significant abnormality. ORBITS: No significant abnormality of visualized orbits. SINUSES / MASTOIDS: No significant abnormality of visualized sinuses and mastoid air cells. ADDITIONAL FINDINGS: None. IMPRESSION: 1. Small acute cortical infarct in the right precentral gyrus. No associated hemorrhage or adverse ma ss effect. Signer Name: Hiro Castro MD Signed: 12/27/2020 10:23 AM Workstation Name: [facility]
--- NOTE | 2020-12-29 09:40 | Progress Note ---
Assessment and Plan Telemetry reviewed: Sinus rhythm 78. No events Acute CVA Patient displays significant improvement of left-sided weakness and dexterity in left hand. neurology is following NSTEMI type II Troponins are elevated, trending downward. Continue to trend CE's. We will plan for cardiac cath once patient is medically stabilized. Echocardiogram reviewed (12/25/2020): LVEF is 15 to 20%. Left ventricle is mildly dilated. Mild concentric LVH. Severe global hypokinesis of the left ventricle. Moderate left ventricular diastolic dysfunction. RV SF is mildly reduced. Saline bubble contrast intravenous injection does not demonstrate PFO. Moderate TR. RVSP is 41 mmHg. Continue bASA, Plavix, statin, and BB. Cardiomyopathy EF 15 to 20%. Continue metoprolol, ASA 81 mg, atorvastatin 40 mg. Optimize antihypertensive regimen. Initiate hydralazine 10 mg 3 times daily. Continue metoprolol 50 mg twice daily. No CARI inhibitor in setting of ANGELLA. Continue to monitor on telemetry Heart failure with reduced ejection fraction Patient has bilateral lower extremity edema. She reports no shortness of breath or chest pain. Continue gentle diuresis: Lasix 20 mg IV daily. Acute kidney injury No ACEI/ARB in setting of acute kidney injury. Avoid nephrotoxic agents. Hypertension Continue current antihypertensive regimen. Patient is on beta-talat. Neuro consult note does not mention permissive hypertension. DVT prophylaxis Patient is on Lovenox. SCDs are ordered Will follow Pt seen in conjunction with Dr. Horta, who agrees with the assessment and plan of care. - Patient Problems (1) CVA (cerebral vascular accident) Current Visit: Yes Status: Suspected Qualifiers: CVA mechanism: unspecified Qualified Code(s): I63.9 - Cerebral infarction, unspecified (2) Congestive heart failure Current Visit: Yes Status: Suspected Qualifiers: Heart failure chronicity: unspecified Qualified Code(s): I50.813 - Acute on chronic right heart failure (3) NSTEMI (non-ST elevated myocardial infarction) Current Visit: Yes Status: Acute Plan to address problem: Type 2 (4) HTN (hypertension) Current Visit: Yes Status: Chronic Qualifiers: Hypertension type: essential hypertension Qualified Code(s): I10 - Essential (primary) hypertension (5) HLD (hyperlipidemia) Current Visit: Yes Status: Chronic Qualifiers: Hyperlipidemia type: mixed hyperlipidemia Qualified Code(s): E78.2 - Mixed hyperlipidemia (6) DM2 (diabetes mellitus, type 2) Current Visit: Yes Status: Chronic (7) Neuropathy Current Visit: Yes Status: Chronic Subjective Date of service: 12/29/20 Principal diagnosis: CVA Interval history: Patient resting comfortably in bed. No chest pain or shortness of breath overnight Telemetry reviewed: Sinus rhythm 78. No events Objective Last Vital Signs Temp 98.0 F 12/29/20 07:35 Pulse 73 12/29/20 07:36 Resp 18 12/29/20 07:35 BP 145/86 12/29/20 07:35 Pulse Ox 92 12/29/20 07:36 - Physical Examination General: No Apparent Distress HEENT: Positive: EOMI, Normocephaly, Sinus Tenderness Neck: Positive: neck supple, trachea midline. Negative: JVD/HJR Cardiac: Positive: Reg Rate and Rhythm, S1/S2 Lungs: Positive: clear to auscultation, Normal Breath Sounds Neuro: Positive: Weakness (left hand & LLE weakness). Negative: Motor Function Intact, Coordination Normal, DTR Norm/Equal U/L Extrem Abdomen: Positive: Soft. Negative: Tender Skin: Negative: Rash Musculoskeletal: No Fluid Collection, No Pain Extremities: Present: upper extr. pulses, lower extr. pulses, +1 Edema - Labs and Meds Comprehensive Metabolic Panel 12/28/20 Range/Units 12:58 Sodium 137 (137-145) mmol/L Potassium 4.1 (3.6-5.0) mmol/L Chloride 96.1 L (98-107) mmol/L Carbon Dioxide 32 H (22-30) mmol/L BUN 40 H (7-17) mg/dL Creatinine 1.8 H (0.6-1.2) mg/dL Glucose 257 H (65-100) mg/dL Calcium 8.5 (8.4-10.2) mg/dL - Imaging and Cardiology EKG: report reviewed, image reviewed Echo: report reviewed - Telemetry EKG Rhythm: Sinus Rhythm - EKG Sinus rhythms and dysrhythmias: sinus rhythm AV and intraventricular conduction: intraventricular conducti
[2020-12-29] MEDS ORDERED: LISINOPRIL 5 MG TAB PO SCH (10:00)
[2020-12-29] MEDS: hydrALAZINE 10 MG TAB PO SCH ×3 (10:18→22:45)
[2020-12-29] MEDS: ASPIRIN EC 81 MG TAB PO SCH (10:18)
[2020-12-29] MEDS: FUROSEMIDE 20 MG/2 ML INJ IV SCH (10:18)
[2020-12-29] MEDS: GABAPENTIN 300 MG CAP PO SCH ×2 (10:18→22:45)
[2020-12-29] MEDS: CLOPIDOGREL 75 MG TAB PO SCH (10:18)
[2020-12-29] MEDS: amLODIPine 10 MG TAB PO SCH (10:18)
[2020-12-29] MEDS: METOPROLOL TARTRATE 50 MG TAB PO SCH ×2 (10:18→22:45)
[2020-12-29 14:30] LABS: Basophils # (Auto) 0.1 K/mm3 (0.0-0.1); Basophils % (Auto) 1.2 % (0.0-1.8); Eosinophils # (Auto) 0.1 K/mm3 (0.0-0.4); Eosinophils % (Auto) 1.4 % (0.0-4.3); Hematocrit 43.5 % (30.3-42.9); Hemoglobin 14.5 gm/dl (10.1-14.3); Lymphocytes # (Auto) 1.5 K/mm3 (1.2-5.4); Lymphocytes % (Auto) 24.6 % (13.4-35.0); Mean Corpuscular HGB Conc 33 % (30-34); Mean Corpuscular Volume 91 fl (79-97); Monocytes # (Auto) 0.6 K/mm3 (0.0-0.8); Monocytes % (Auto) 9.6 % (0.0-7.3); Platelet Count 275 K/mm3 (140-440); Red Blood Count 4.76 M/mm3 (3.65-5.03); Red Cell Distribution Width 13.9 % (13.2-15.2)
[2020-12-29 14:47] LABS: Calcium 8.4 mg/dL (8.4-10.2)
[2020-12-29] MEDS: ENOXAPARIN 40 MG/0.4 ML INJ SUB-Q SCH (22:47)
[2020-12-30] MEDS: hydrALAZINE 10 MG TAB PO SCH ×3 (06:46→21:16)
--- NOTE | 2020-12-30 09:34 | Progress Note ---
Assessment and Plan Assessment and plan: #CVA CT head negative for any acute infarct CTA head and neck - no significant stenosis MRI brain shows small acute infarct in the right precentral gyrus. Echo shows systolic HF with no PFO, or septal defects Continue aspirin and statins Neurology evaluation appreciated. Continue physical therapy #NSTEMI Cardiology following Ischemic evaluation per cardiology Possible left heart cath IP versus outpatient #ANGELLA Secondary to vasomotor nephropathy Improving Avoid nephrotoxic medications #Systolic heart failure EF 15-20% Ischemic evaluation per cardiology #Right middle lobe pneumonia Continue Levaquin. Complete on 01/03. #DVT ppx - Lovenox History Interval history: 65 YO Female with Obesity, HTN, DM presents to ED for evaluation. Pt reports " I feel weak". Patient states that she was in her usual state of health at bedtime which was around 2200 hrs. Patient states that she awoke from sleep at 1000 hrs. and was found to have left arm and leg weakness. Patient reports difficulty grasping and holding onto objects with her left hand as well as unsteady gait. In the ER, stroke code was called and patient was seen by teleneurologist. CT head was negative for any stroke. Other findings on admission include elevated troponin and right middle lobe pneumonia. Patient was thus admitted to the hospital for further evaluation. Cardiology and neurology consulted 12/26. She denies any chest pain this morning. For right middle lobe pneumonia, patient is on IV antibiotics. Cardiology was consulted for elevated troponin. 12/27: Patient clinically stable, no further nausea but BP still fluctuating, Discussed the finding of Pleural effusion, patient with no shortness of breath, if no improvement will recommend outpatient thoracentesis. Change abx to Levaquin due to the nausea and vomiting since starting Cefepime and azithromycin Echo is pending. Monitor and adjust Blood sugar control. 12/28. Echocardiogram shows severe LV dysfunction with EF of 15 to 20%. No PFO or septal defects seen. Cardiology is following. Patient may need ischemic work-up. 12/29. Patient to have ischemic work up as outpatient. She is on diuretics. Cr bumped to 1.8 yesterday. AM BMP pending. Consider holding lasix. MRI brain result is still pending. 12/30. Patient is very eager to go home. Discussed with cardiology-patient may need ischemic work-up prior to discharge was outpatient. MRI brain shows a small infarct in the right precentral gyrus. Patient remains on antiplatelets and statins. She is also on IV antibiotics for pneumonia. . Hospitalist Physical - Physical exam Narrative exam: VITAL SIGNS: Reviewed. GENERAL: Awake HEAD: No signs of head trauma. EYES: Pupils are equal. Extraocular motions intact. MOUTH: Oropharynx is normal. NECK: No adenopathy, no JVD. CHEST: Chest with diminished breath sounds bilaterally. No wheezes, rales, or rhonchi. CARDIAC: normal S1 and S2, without murmurs, gallops, or rubs. ABDOMEN: Soft, non tender and non distended. No rebound or guarding, and no masses palpated. Bowel Sounds normal. MUSCULOSKELETAL: No edema NEUROLOGIC EXAM: Alert and oriented x3. No focal neurologic deficits SKIN: No obvious lesions - Constitutional Vitals: Temp Pulse Resp BP Pulse Ox 97.3 F L 72 18 158/92 99 12/30/20 07:56 12/30/20 07:56 12/30/20 07:56 12/30/20 07:56 12/30/20 07:56 HEART Score - HEART Score Troponin: Troponin T 0.093 ng/mL (0.00-0.029) H 12/30/20 07:22 Results - Labs CBC & Chem 7: 12/29/20 14:20 12/29/20 14:20 Labs: Laboratory Last Values WBC 6.2 K/mm3 (4.5-11.0) 12/29/20 14:20 RBC 4.76 M/mm3 (3.65-5.03) 12/29/20 14:20 Hgb 14.5 gm/dl (10.1-14.3) H 12/29/20 14:20 Hct 43.5 % (30.3-42.9) H 12/29/20 14:20 MCV 91 fl (79-97) 12/29/20 14:20 MCH 31 pg (28-32) 12/29/20 14:20 MCHC 33 % (30-34) 12/29/20 14:20 RDW 13.9 % (13.2-15.2) 12/29/20 14:20 Plt Count 275 K/mm3 (140-440) 12/29/20 14:20 Lymph % (Auto) 24.6 % (13.4-35.0) 12/29/20 14:20 Day % (Auto) 9.6 % (0.0-7.3) H 12/29/20 14:20 Eos % (Auto) 1.4 % (0.0-4.3) 12/29/20 14:20 Baso % (Auto) 1.2 % (0.0-1.8) 12/29/20 14:20 Lymph # (Auto) 1.5 K/mm3 (1.2-5.4) 12/29/20 14:20 Day # (Auto) 0.6 K/mm3 (0.0-0.8) 12/29/20 14:20 Eos # (Auto) 0.1 K/mm3 (0.0-0.4) 12/29/20 14:20 Baso # (Auto) 0.1 K/mm3 (0.0-0.1) 12/29/20 14:20 Seg Neutrophils % 63.2 % (40.0-70.0) 12/29/20 14:20 Seg Neutrophils # 3.9 K/mm3 (1.8-7.7) 12/29/20 14:20 PT 13.0 Sec. (12.2-14.9) 12/25/20 11:16 INR 0.99 (0.87-1.13) 12/25/20 11:16 APTT 26.4 Sec. (24.2-36.6) 12/25/20 11:16 Sodium 138 mmol/L (137-145) 12/29/20 14:20 Potassium 4.3 mmol/L (3.6-5.0) 12/29/20 14:20 Chloride 96.7 mmol/L (98-107) L 12/29/20 14:20 Carbon Dioxide 37 mmol/L (22-30) H 12/29/20 14:20 Anion Gap 9 mmol/L 12/29/20 14:20 BUN 39 mg/dL (7-17) H 12/29/20 14:20 Creatinine 1.4 mg/dL (0.6-1.2) H 12/29/20 14:20 Estimated GFR 38 ml/min 12/29/20 14:20 BUN/Creatinine Ratio 28 % 12/29/20 14:20 Glucose 262 mg/dL (65-100) H 12/29/20 14:20 POC Glucose 217 mg/dL (70-105) H 12/26/20 23:22 Calcium 8.4 mg/dL (8.4-10.2) 12/29/20 14:20 Total Bilirubin 0.30 mg/dL (0.1-1.2) 12/29/20 14:20 AST 146 units/L (5-40) H 12/29/20 14:20 ALT 185 units/L (7-56) H 12/29/20 14:20 Alkaline Phosphatase 237 units/L (35-129) H 12/29/20 14:20 Troponin T 0.093 ng/mL (0.00-0.029) H 12/30/20 07:22 NT-Pro-B Natriuret Pep 2638 pg/mL (0-900) H 12/26/20 12:26 Total Protein 5.4 g/dL (6.3-8.2) L 12/29/20 14:20 Albumin 3.0 g/dL (3.9-5) L 12/29/20 14:20 Albumin/Globulin Ratio 1.3 % 12/29/20 14:20 Triglycerides 106 mg/dL (2-149) 12/25/20 11:16 Cholesterol 207 mg/dL (50-199) H 12/25/20 11:16 LDL Cholesterol Direct 163 mg/dL (50-130) H 12/25/20 11:16 HDL Cholesterol 47 mg/dL (40-59) 12/25/20 11:16 Cholesterol/HDL Ratio 4.40 % 12/25/20 11:16 Lipase 15 units/L (13-60) 12/25/20 11:16 Urine Color Yellow (Yellow) 12/26/20 18:01 Urine Turbidity Clear (Clear) 12/26/20 18:01 Urine pH 6.0 (5.0-7.0) 12/26/20 18:01 Ur Specific [place] 1.026 (1.003-1.030) 12/26/20 18:01 Urine Protein 30 mg/dl mg/dL (Negative) 12/26/20 18:01 Urine Glucose (UA) 50 mg/dL (Negative) 12/26/20 18:01 Urine Ketones Neg mg/dL (Negative) 12/26/20 18:01 Urine Blood Neg (Negative) 12/26/20 18:01 Urine Nitrite Neg (Negative) 12/26/20 18:01 Urine Bilirubin Neg (Negative) 12/26/20 18:01 Urine Urobilinogen 4.0 mg/dL (<2.0) 12/26/20 18:01 Ur Leukocyte Esterase Tr (Negative) 12/26/20 18:01 Urine WBC (Auto) 2.0 /HPF (0.0-6.0) 12/26/20 18:01 Urine RBC (Auto) 1.0 /HPF (0.0-6.0) 12/26/20 18:01 U Epithel Cells (Auto) 2.0 /HPF (0-13.0) 12/26/20 18:01 Urine Mucus Few /HPF 12/26/20 18:01 Carter/IV: Voiding Method Toilet Active Medications - Current Medications Current Medications: Generic Name Dose Route Start Last Admin Trade Name Freq PRN Reason Stop Dose Admin Acetaminophen 650 mg 12/25/20 15:06 Acetaminophen 325 Mg Tab PO Q4H PRN Pain, Mild (1-3) Amlodipine Besylate 10 mg 12/28/20 10:00 12/29/20 10:18 Amlodipine 10 Mg Tab PO 10 mg QDAY ALEXIS Administration Aspirin 81 mg 12/26/20 10:00 12/29/20 10:18 Aspirin Ec 81 Mg Tab PO 81 mg QDAY ALEXIS Administration Atorvastatin Calcium 40 mg 12/25/20 22:00 12/29/20 22:45 Atorvastatin 40 Mg Tab PO 40 mg QHS ALEXIS Administration Bisacodyl 10 mg 12/25/20 15:06 Bisacodyl 10 Mg Rect Supp [place] QDAY PRN Constipation Clopidogrel Bisulfate 75 mg 12/26/20 10:00 12/29/20 10:18 Clopidogrel 75 Mg Tab PO 75 mg QDAY ALEXIS Administration Enoxaparin Sodium 40 mg 12/28/20 22:00 12/29/20 22:47 Enoxaparin 40 Mg/0.4 Ml Inj SUB-Q Not Given QDAY@2200 [facility] Protocol Furosemide 20 mg 12/28/20 16:00 12/29/20 10:18 Furosemide 20 Mg/2 Ml Inj IV 20 mg QDAY ALEXIS Administration Gabapentin 300 mg 12/25/20 22:00 12/29/20 22:45 Gabapentin 300 Mg Cap PO 300 mg BID ALEXIS Administration Hydralazine HCl 10 mg 12/27/20 13:53 Hydralazine 20 Mg/1 Ml Inj IV Q4HR PRN Hypertension Hydralazine HCl 10 mg 12/29/20 09:30 12/30/20 06:46 Hydralazine 10 Mg Tab PO 10 mg Q8HR ALEXIS Administration Sodium Chloride 1,000 mls @ 60 mls/hr 12/28/20 08:00 Nacl 0.9% 1000 Ml IV DIRECT ALEXIS Levofloxacin 750 mg 12/30/20 10:00 Levofloxacin 750 Mg Tab PO 01/03/21 10:01 Q48H ALEXIS Protocol Magnesium Hydroxide 30 ml 12/25/20 15:06 Magnesium Hydroxide (Mom) Oral Liqd Udc PO Q4H PRN Constipation Metoclopramide HCl 10 mg 12/25/20 15:06 12/27/20 07:46 Metoclopramide 10 Mg Tab PO 10 mg Q6H PRN Administration Nausea And Vomiting Metoprolol Tartrate 50 mg 12/26/20 12:00 12/29/20 22:45 Metoprolol Tartrate 50 Mg Tab PO 50 mg BID ALEXIS Administration Ondansetron HCl 4 mg 12/25/20 15:06 12/27/20 11:11 Ondansetron 4 Mg/2 Ml Inj IV 4 mg Q8H PRN Administration Nausea And Vomiting Promethazine HCl 25 mg 12/25/20 15:06 12/27/20 14:12 Promethazine 25 Mg Rect Supp [place] 25 mg Q6H PRN Administration Nausea And Vomiting Sodium Chloride 10 ml 12/25/20 15:06 Sodium Chloride 0.9% 10 Ml Flush Syringe IV PRN PRN LINE FLUSH Tramadol HCl 50 mg 12/25/20 15:06 12/26/20 22:54 Tramadol 50 Mg Tab PO 50 mg Q6H PRN Administration Pain, Moderate (4-6)
[2020-12-30] MEDS ORDERED: levoFLOXacin 750 MG TAB PO SCH (10:00)
[2020-12-30] MEDS: ASPIRIN EC 81 MG TAB PO SCH (11:16)
[2020-12-30] MEDS: GABAPENTIN 300 MG CAP PO SCH ×2 (11:17→21:13)
[2020-12-30] MEDS: amLODIPine 10 MG TAB PO SCH (11:17)
[2020-12-30] MEDS: CLOPIDOGREL 75 MG TAB PO SCH (11:18)
[2020-12-30] MEDS: FUROSEMIDE 20 MG/2 ML INJ IV SCH (11:18)
[2020-12-30] MEDS: METOPROLOL TARTRATE 50 MG TAB PO SCH ×2 (11:18→21:13)
--- NOTE | 2020-12-30 12:10 | Progress Note ---
Assessment and Plan Telemetry reviewed: Sinus rhythm 76. 4 beat episode of V. tach noted overnight. * Acute CVA * Patient displays significant improvement of left-sided weakness and dexterity in left hand. neurology is following * NSTEMI type II * Troponins are elevated, trending downward. Most recent troponin is subacute. Continue to trend CE's. * Cardiomyopathy * Echocardiogram reviewed (12/25/2020): LVEF is 15 to 20%. Left ventricle is mildly dilated. Mild concentric LVH. Severe global hypokinesis of the left ventricle. Moderate left ventricular diastolic dysfunction. RV SF is mildly reduced. Saline bubble contrast intravenous injection does not demonstrate PFO. Moderate TR. RVSP is 41 mmHg. * Continue current cardiac regimen. * LHC is planned in the morning (12/31/2020). N.p.o. after midnight. * Heart failure with reduced ejection fraction * Patient has bilateral lower extremity edema. She reports no shortness of breath or chest pain. Continue gentle diuresis: Lasix 20 mg IV daily. Continue to monitor BMP. * DVT prophylaxis * Patient is on Lovenox. SCDs are ordered LHC pending for a.m. N.p.o. after midnight. Will follow Pt seen in conjunction with Dr. Horta, who agrees with the assessment and plan of care. - Patient Problems (1) CVA (cerebral vascular accident) Current Visit: Yes Status: Suspected Qualifiers: CVA mechanism: unspecified Qualified Code(s): I63.9 - Cerebral infarction, unspecified (2) Congestive heart failure Current Visit: Yes Status: Suspected Qualifiers: Heart failure chronicity: unspecified Qualified Code(s): I50.813 - Acute on chronic right heart failure (3) NSTEMI (non-ST elevated myocardial infarction) Current Visit: Yes Status: Acute Plan to address problem: Type 2 (4) HTN (hypertension) Current Visit: Yes Status: Chronic Qualifiers: Hypertension type: essential hypertension Qualified Code(s): I10 - Essential (primary) hypertension (5) HLD (hyperlipidemia) Current Visit: Yes Status: Chronic Qualifiers: Hyperlipidemia type: mixed hyperlipidemia Qualified Code(s): E78.2 - Mixed hyperlipidemia (6) DM2 (diabetes mellitus, type 2) Current Visit: Yes Status: Chronic (7) Neuropathy Current Visit: Yes Status: Chronic Subjective Date of service: 12/30/20 Principal diagnosis: CVA Interval history: Patient resting comfortably in bed. No chest pain or shortness of breath overnight Telemetry reviewed: Sinus rhythm 76. 4 beat episode of V. tach noted overnight. Objective Last Vital Signs Temp 97.7 F 12/30/20 11:20 Pulse 76 12/30/20 11:20 Resp 18 12/30/20 11:20 BP 153/84 12/30/20 11:20 Pulse Ox 96 12/30/20 11:20 - Physical Examination General: No Apparent Distress HEENT: Positive: EOMI, Normocephaly, Sinus Tenderness Neck: Positive: neck supple, trachea midline. Negative: JVD/HJR Cardiac: Positive: Reg Rate and Rhythm, S1/S2 Lungs: Positive: clear to auscultation, Normal Breath Sounds Neuro: Positive: Weakness (left hand & LLE weakness). Negative: Motor Function Intact, Coordination Normal, DTR Norm/Equal U/L Extrem Abdomen: Positive: Soft. Negative: Tender Skin: Negative: Rash Musculoskeletal: No Fluid Collection, No Pain Extremities: Present: upper extr. pulses, lower extr. pulses, +1 Edema - Labs and Meds Cardiac Enzymes 12/29/20 Range/Units 14:20 AST 146 H (5-40) units/L CBC 12/29/20 Range/Units 14:20 WBC 6.2 (4.5-11.0) K/mm3 RBC 4.76 (3.65-5.03) M/mm3 Hgb 14.5 H (10.1-14.3) gm/dl Hct 43.5 H (30.3-42.9) % Plt Count 275 (140-440) K/mm3 Lymph # (Auto) 1.5 (1.2-5.4) K/mm3 [place] # (Auto) 0.6 (0.0-0.8) K/mm3 Eos # (Auto) 0.1 (0.0-0.4) K/mm3 Baso # (Auto) 0.1 (0.0-0.1) K/mm3 Comprehensive Metabolic Panel 12/29/20 Range/Units 14:20 Sodium 138 (137-145) mmol/L Potassium 4.3 (3.6-5.0) mmol/L Chloride 96.7 L (98-107) mmol/L Carbon Dioxide 37 H (22-30) mmol/L BUN 39 H (7-17) mg/dL Creatinine 1.4 H (0.6-1.2) mg/dL Glucose 262 H (65-100) mg/dL Calcium 8.4 (8.4-10.2) mg/dL AST 146 H (5-40) units/L ALT 185 H (7-56) units/L Alkaline Phosphatase 237 H (35-129) units/L Total Protein 5.4 L (6.3-8.2) g/dL Albumin 3.0 L (3.9-5) g/dL - Imaging and Cardiology EKG: report reviewed, image reviewed Echo: report reviewed - Telemetry EKG Rhythm: Sinus Rhythm - EKG Sinus rhythms and dysrhythmias: sinus rhythm AV and intraventricular conduction: intraventricular conducti
[2020-12-30 16:21] LABS: Basophils # (Auto) 0.1 K/mm3 (0.0-0.1); Basophils % (Auto) 0.9 % (0.0-1.8); Eosinophils # (Auto) 0.1 K/mm3 (0.0-0.4); Eosinophils % (Auto) 1.2 % (0.0-4.3); Hematocrit 44.8 % (30.3-42.9); Hemoglobin 14.8 gm/dl (10.1-14.3); Lymphocytes # (Auto) 1.1 K/mm3 (1.2-5.4); Lymphocytes % (Auto) 18.3 % (13.4-35.0); Mean Corpuscular HGB Conc 33 % (30-34); Mean Corpuscular Volume 92 fl (79-97); Monocytes # (Auto) 0.6 K/mm3 (0.0-0.8); Monocytes % (Auto) 9.8 % (0.0-7.3); Platelet Count 286 K/mm3 (140-440); Red Blood Count 4.89 M/mm3 (3.65-5.03); Red Cell Distribution Width 13.8 % (13.2-15.2)
--- NOTE | 2020-12-30 18:01 | Electrocardiograph Report ---
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
[2020-12-30] MEDS: ENOXAPARIN 40 MG/0.4 ML INJ SUB-Q SCH (21:11)
[2020-12-31 04:09] LABS: INR 1.05 (0.87-1.13)
[2020-12-31 04:22] LABS: Calcium 8.6 mg/dL (8.4-10.2)
[2020-12-31] MEDS: hydrALAZINE 10 MG TAB PO SCH ×3 (06:00→21:38)
[2020-12-31] MEDS ORDERED: ASPIRIN EC 325 MG TAB PO ONE (06:00)
[2020-12-31] MEDS ORDERED: SODIUM CHLORIDE 0.9% 500 ML 500 ML ONE (07:14)
[2020-12-31] MEDS: CLOPIDOGREL 75 MG TAB PO SCH (07:36)
[2020-12-31] MEDS ORDERED: HEPARIN 10,000 UNITS/10 ML VIAL ONE ×2 (08:12→13:05)
[2020-12-31] MEDS ORDERED: HEPARIN/NS 5000 UNIT/500ML 1,000 ML IR ONE (08:12)
[2020-12-31] MEDS ORDERED: VERAPAMIL 5 MG/2 ML INJ ONE (08:13)
[2020-12-31] MEDS ORDERED: MIDAZOLAM 2 MG/2 ML INJ ONE (08:13)
[2020-12-31] MEDS ORDERED: fentaNYL 100 MCG/2 ML INJ ONE (08:13)
[2020-12-31] MEDS: LIDOCAINE (2%) 20 MG/1 ML VIAL 20 ML MDV INFILTRATI ONE ×2 (08:57→09:14)
[2020-12-31] MEDS ORDERED: NITROGLYCERIN SYRINGE 3 ML ONE (09:10)
[2020-12-31] MEDS ORDERED: NITROGLYCERIN 600 MCG/3 ML SYRINGE ART-SHEATH ONE ×2 (09:11→09:26)
[2020-12-31] MEDS: METOPROLOL TARTRATE 50 MG TAB PO SCH ×2 (10:24→21:38)
[2020-12-31] MEDS: amLODIPine 10 MG TAB PO SCH (10:49)
--- NOTE | 2020-12-31 11:16 | Cardiac Catherization Report ---
DATE OF SERVICE: 12/31/2020 CARDIAC CATHETERIZATION REPORT DATE OF PROCEDURE: 12/31/2020 INDICATION: The patient is a 65-year-old female who was admitted with left arm weakness and subsequently it improved and the echocardiogram showed severely depressed left ventricular systolic function with ejection fraction of 15-20% with no previous history of cardiac problems. Considering her severe LV dysfunction, she was scheduled for coronary angiography to rule out any underlying coronary artery disease. The patient's other problems include essential hypertension, hyperlipidemia and type 2 diabetes mellitus. DESCRIPTION OF PROCEDURE: The patient was brought to the catheterization laboratory in a fasting condition. The patient was prepared in standard fashion. The patient was evaluated for moderate sedation and was felt to be an appropriate candidate for moderate sedation and received IV Versed and fentanyl. Subsequently, right radial artery access was attempted. No radial pulse is palpable and because of this ultrasound was used and right radial artery access was obtained using 21-gauge needle. A [place] slender sheath was introduced. However, when advancing the catheter in the upper arm area, difficult to advance the wire initially and subsequently 5 [place] catheter also could not be advanced because of severe pain, was not able to advance the catheter even after giving intra-arterial nitroglycerin. Because of this, attempts with radial access was aborted and right femoral artery area was prepared in standard fashion and using fluoroscopy and 5[place] micropuncture needle, right femoral artery puncture was made without difficulty. A 5 7[place] sheath was introduced. A 5 6[place] multipurpose catheter was used to obtain the angiograms of the left ventricle done in GAR projection using hand injection and subsequently angiograms of the right coronary artery were obtained in multiple views followed by using the same catheter. Angiograms of the left coronary artery were obtained in multiple views. At the end of the procedure, catheter and sheaths were removed. Manual pressure was applied in the right groin. The catheter in the right radial artery is very difficult to pull. After giving nitroglycerin with the support of the wire, sheath was removed without difficulty. Hand pressure was applied for hemostasis and pressure bandage was applied on the right radial artery. At the end of the procedure, the patient is not having any hematoma in the right radial access site and right femoral access site. The patient will be monitored in the outpatient area. The patient was monitored throughout the procedure using pulse oximetry, hemodynamic monitoring and EKG monitoring. At the end of the procedure, the patient is communicating normally, breathing normally with no focal deficits. The patient's moderate sedation started around 8:53 a.m. and ended at 9:20 a.m. The patient is stable without any chest pain or shortness of breath. At the end of the procedure, vital signs have been stable. Following findings were noted. HEMODYNAMICS: 1. Opening aortic pressure 168/99. Left ventricular pressure 164/34. No gradient across the aortic valve. Estimated ejection fraction 15-20%. 2. Left ventriculogram done in GAR projection, only limited amount of dye is injected. LV appears to be markedly dilated with diffuse hypokinesis. Ejection fraction was noted to be around 15-20%. However, would confirm this. These findings are consistent with the echocardiographic findings. 3. Right coronary artery is a codominant artery arises normally from right coronary cusp. It is angiographically smooth and normal. 4. Left coronary artery arises normally from left coronary cusp, left main, LAD, which curves around the apex and circumflex artery are visualized well. Left main is normal. LAD showed smooth 10% lesion in the mid part. Otherwise, rest of the LAD without significant disease. Circumflex artery is tortuous, but otherwise angiographically smooth and normal. FINAL IMPRESSION: 1. Markedly dilated left ventricle with elevated end diastolic pressure and severely depressed left ventricular function in the range of 15-20%. 2. Mitral regurgitation could not be evaluated because of limited amount of dye injected. 3. Very minimal coronary disease with 10% mid left anterior descending lesion. Otherwise, rest of the coronaries without significant disease. Right radial access was obtained; however, because of some small caliber of the vessels, could not advance the catheter and the procedure was converted to right femoral artery access. Good hemostasis was achieved in both the areas using manual pressure and pressure bandage. The patient tolerated the procedure well. RECOMMENDATIONS: We will continue medical therapy. The patient does have underlying severe left ventricular dysfunction, we will optimize her medical therapy. TID: [id number] RECEIPT: [id number] ABDULLAHI/MORRO DUBOIS
[2020-12-31] MEDS ORDERED: HEPARIN 10,000 UNITS/10 ML VIAL IV PRN (12:40)
[2020-12-31] MEDS ORDERED: HEPARIN 10,000 UNITS/10 ML VIAL IV ONE (12:40)
[2020-12-31] MEDS ORDERED: HEPARIN/ 0.45% NACL DRIP 25,000 UNIT/500 ML BAG ONE (12:49)
[2020-12-31] MEDS ORDERED: HEPARIN/ 0.45% NACL DRIP 25,000 UNIT/500 ML BAG IV SCH (13:00)
--- NOTE | 2020-12-31 13:19 | Vascular Lab Report ---
RIGHT UPPER EXTREMITY VENOUS DOPPLER ULTRASOUND HISTORY: Upper extremity pain and swelling. COMPARISON: None. TECHNIQUE: Grayscale, color and spectral Doppler imaging of the venous system of the right upper extr emity was performed. FINDINGS: Internal Jugular Vein: Normal grayscale appearance and flow. Subclavian Vein: Normal grayscale appearance and flow. Axillary Vein: Normal venous flow, compressibility and augmentation. Brachial vein: Normal venous flow, compressibility and augmentation. Radial vein: Normal venous flow, compressibility and augmentation. Ulnar vein: Normal venous flow, compressibility and augmentation. Additional Findings: None. IMPRESSION: 1. No sonographic evidence of deep venous thrombosis in the right upper extremity. Signer Name: Curtis Pack Jr, MD Signed: 12/31/2020 1:15 PM Workstation Name: [id number]
--- NOTE | 2020-12-31 13:22 | Vascular Lab Report ---
DUPLEX DOPPLER ARTERIAL RIGHT UPPER EXTREMITY INDICATION: post lhc, swelling. Right upper extremity swelling TECHNIQUE: Arterial duplex examination of the right upper extremity performed using B-mode, color flow and spect ral Doppler assessment. FINDINGS: Occluding, acute appearing thrombus is identified in the mid and distal right radial artery. The subc lavian, axillary, brachial and ulnar arteries are patent with triphasic waveforms. IMPRESSION: Thrombosis of the mid to distal right radial artery. These findings were relayed to the patient's juana seTereso, by the technologist at 1249 hours. Signer Name: Curtis Pack Jr, MD Signed: 12/31/2020 1:17 PM Workstation Name: [id number]
--- NOTE | 2020-12-31 13:45 | Progress Note ---
Subjective Date of service: 12/31/20 Principal diagnosis: CVA Interval history: Assessment and plan: #CVA CT head negative for any acute infarct CTA head and neck - no significant stenosis MRI brain shows small acute infarct in the right precentral gyrus. Echo shows systolic HF with no PFO, or septal defects Continue aspirin and statins Neurology evaluation appreciated. Continue physical therapy #NSTEMI Cardiology following Ischemic evaluation per cardiology Possible left heart cath IP versus outpatient #ANGELLA Secondary to vasomotor nephropathy Improving Avoid nephrotoxic medications #Systolic heart failure EF 15-20% Ischemic evaluation per cardiology For [facility] today #Right middle lobe pneumonia Continue Levaquin. Complete on 01/03. #Type 2 diabetes Accu-Cheks reviewed Patient's home medications reviewed Start on glimepiride 2 mg daily Continue insulin sliding scale coverage #DVT ppx - Lovenox History Interval history: 65 YO Female with Obesity, HTN, DM presents to ED for evaluation. Pt reports " I feel weak". Patient states that she was in her usual state of health at bedtime which was around 2200 hrs. Patient states that she awoke from sleep at 1000 hrs. and was found to have left arm and leg weakness. Patient reports difficulty grasping and holding onto objects with her left hand as well as u nsteady gait. In the ER, stroke code was called and patient was seen by teleneurologist. CT head was negative for any stroke. Other findings on admission include elevated troponin and right middle lobe pneumonia. Patient was thus admitted to the hospital for further evaluation. Cardiology and neurology consulted 12/26. She denies any chest pain this morning. For right middle lobe pneumonia, patient is on IV antibiotics. Cardiology was consulted for elevated troponin. 12/27: Patient clinically stable, no further nausea but BP still fluctuating, Discussed the finding of Pleural effusion, patient with no shortness of breath, if no improvement will recommend outpatient thoracentesis. Change abx to Levaquin due to the nausea and vomiting since starting Cefepime and azithromycin Echo is pending. Monitor and adjust Blood sugar control. 12/28. Echocardiogram shows severe LV dysfunction with EF of 15 to 20%. No PFO or septal defects seen. Cardiology is following. Patient may need ischemic work-up. 12/29. Patient to have ischemic work up as outpatient. She is on diuretics. Cr bumped to 1.8 yesterday. AM BMP pending. Consider holding lasix. MRI brain result is still pending. 12/30. Patient is very eager to go home. Discussed with cardiology-patient may need ischemic work-up prior to discharge was outpatient. MRI brain shows a small infarct in the right precentral gyrus. Patient remains on antiplatelets and statins. She is also on IV antibiotics for pneumonia. . 12/31 doing well. no complaints. Denies CP/sob, F/C or cough. For [facility] Objective - Constitutional Vitals: Vital Signs - 12hr 12/31/20 12/31/20 12/31/20 04:09 06:00 10:06 Temperature 97.6 F 98.0 F Pulse Rate 67 67 71 Respiratory 16 17 Rate Blood Pressure 136/80 136/80 165/99 O2 Sat by Pulse 96 99 Oximetry 12/31/20 12/31/20 12/31/20 10:15 10:24 10:30 Temperature Pulse Rate 70 71 71 Respiratory 20 14 Rate Blood Pressure 164/96 164/96 150/96 O2 Sat by Pulse 100 100 Oximetry 12/31/20 12/31/20 12/31/20 10:45 10:49 11:00 Temperature Pulse Rate 72 72 71 Respiratory 17 17 Rate Blood Pressure 150/96 150/96 151/100 O2 Sat by Pulse 100 99 Oximetry 12/31/20 12/31/20 11:30 12:00 Temperature Pulse Rate 71 67 Respiratory 14 16 Rate Blood Pressure 161/95 157/92 O2 Sat by Pulse 99 99 Oximetry General appearance: Present: no acute distress - EENT Eyes: PERRL, EOM intact ENT: hearing intact - Neck Neck: supple, normal ROM, no masses or JVD - Respiratory Respiratory effort: normal Respiratory: bilateral: CTA, diminished - Cardiovascular Rhythm: regular Heart Sounds: Present: S1 & S2 Extremities: No edema - Gastrointestinal General gastrointestinal: Present: soft, non-tender Rectal Exam: deferred - Integumentary Integumentary: clear - Musculoskeletal Musculoskeletal: strength equal bilaterally - Neurologic Neurologic: moves all extremities - Psychiatric Psychiatric: appropriate mood/affect - Labs CBC & Chem 7: 12/30/20 15:46 12/31/20 03:49 Labs: Abnormal lab results 12/30/20 12/31/20 12/31/20 Range/Units 15:46 03:49 05:10 Hgb 14.8 H (10.1-14.3) gm/dl Hct 44.8 H (30.3-42.9) % [place] % (Auto) 9.8 H (0.0-7.3) % Lymph # (Auto) 1.1 L (1.2-5.4) K/mm3 Sodium 136 L (137-145) mmol/L Chloride 94.9 L (98-107) mmol/L Carbon Dioxide 38 H (22-30) mmol/L BUN 22 H (7-17) mg/dL Glucose 217 H (65-100) mg/dL POC Glucose 182 H (70-105) mg/dL AST 70 H (5-40) units/L ALT 152 H (7-56) units/L Alkaline Phosphatase 228 H (35-129) units/L Total Protein 5.2 L (6.3-8.2) g/dL Albumin 3.0 L (3.9-5) g/dL HEART Score - HEART Score Troponin: Troponin T 0.093 ng/mL (0.00-0.029) H 12/30/20 07:22
--- NOTE | 2020-12-31 14:58 | Progress Note ---
Assessment and Plan Telemetry reviewed: Sinus rhythm 70. No events * Acute CVA * Patient displays significant improvement of left-sided weakness and dexterity in left hand. neurology is following * NSTEMI type II * Troponins are elevated, trending downward. Most recent troponin is subacute. Continue to trend CE's. * Cardiomyopathy * Echocardiogram reviewed (12/25/2020): LVEF is 15 to 20%. Left ventricle is mildly dilated. Mild concentric LVH. Severe global hypokinesis of the left ventricle. Moderate left ventricular diastolic dysfunction. RV SF is mildly reduced. Saline bubble contrast intravenous injection does not demonstrate PFO. Moderate TR. RVSP is 41 mmHg. * C reviewed (12/31/2020): Very minimal coronary disease with 10% mid left anterior descending lesion. Otherwise rest of the coronaries without significant disease. Markedly dilated left ventricle with elevated end- diastolic pressure and severely depressed left ventricular function in the range of 15 to 20%. * Right radial artery thrombus * After [facility] 12/31/2020 cath site inspected at right wrist revealed hematoma. Limb was cool to the touch and Trveon sign revealed poor blood return. Arterial and venous ultrasound of the limb revealed radial mid-distal artery thrombus. Heparin drip was initiated at standard intensity protocol. Vascular surgery Dr. Jose Green was consulted. Vascular surgery Recs pending. * Duplex Doppler arterial of right upper extremity reviewed (12/31/2020): Occluding, acute appearing thrombus is identified in the mid and distal right radial artery. * Heart failure with reduced ejection fraction * Patient has bilateral lower extremity edema. She reports no shortness of breath or chest pain. Continue gentle diuresis: Lasix 20 mg IV daily. Continue to monitor BMP. * DVT prophylaxis * Patient is on Lovenox. SCDs are ordered Vascular surgery is consulted for right radial artery embolism. We will continue to follow. Pt seen in conjunction with Dr. Horta, who agrees with the assessment and plan of care. - Patient Problems (1) CVA (cerebral vascular accident) Current Visit: Yes Status: Suspected Qualifiers: CVA mechanism: unspecified Qualified Code(s): I63.9 - Cerebral infarction, unspecified (2) Congestive heart failure Current Visit: Yes Status: Suspected Qualifiers: Heart failure chronicity: unspecified Qualified Code(s): I50.813 - Acute on chronic right heart failure (3) NSTEMI (non-ST elevated myocardial infarction) Current Visit: Yes Status: Acute Plan to address problem: Type 2 (4) HTN (hypertension) Current Visit: Yes Status: Chronic Qualifiers: Hypertension type: essential hypertension Qualified Code(s): I10 - Essential (primary) hypertension (5) HLD (hyperlipidemia) Current Visit: Yes Status: Chronic Qualifiers: Hyperlipidemia type: mixed hyperlipidemia Qualified Code(s): E78.2 - Mixed hyperlipidemia (6) DM2 (diabetes mellitus, type 2) Current Visit: Yes Status: Chronic (7) Neuropathy Current Visit: Yes Status: Chronic Subjective Date of service: 12/31/20 Principal diagnosis: CVA Interval history: Patient resting comfortably in bed. No chest pain or shortness of breath overnight Telemetry reviewed: Sinus rhythm 70. No events Objective Last Vital Signs Temp 98.0 F 12/31/20 10:06 Pulse 67 12/31/20 12:00 Resp 16 12/31/20 12:00 BP 157/92 12/31/20 12:00 Pulse Ox 99 12/31/20 12:00 - Physical Examination General: No Apparent Distress HEENT: Positive: EOMI, Normocephaly, Sinus Tenderness Neck: Positive: neck supple, trachea midline. Negative: JVD/HJR Cardiac: Positive: Reg Rate and Rhythm, S1/S2 Lungs: Positive: clear to auscultation, Normal Breath Sounds Neuro: Positive: Weakness (left hand & LLE weakness). Negative: Motor Function Intact, Coordination Normal, DTR Norm/Equal U/L Extrem Abdomen: Positive: Soft. Negative: Tender Skin: Negative: Rash Musculoskeletal: No Fluid Collection, No Pain Extremities: Present: upper extr. pulses, lower extr. pulses, +1 Edema - Labs and Meds Cardiac Enzymes 12/31/20 Range/Units 03:49 AST 70 H (5-40) units/L Coagulation 12/31/20 Range/Units 03:49 PT 13.5 (12.2-14.9) Sec. INR 1.05 (0.87-1.13) CBC 12/30/20 Range/Units 15:46 WBC 6.2 (4.5-11.0) K/mm3 RBC 4.89 (3.65-5.03) M/mm3 Hgb 14.8 H (10.1-14.3) gm/dl Hct 44.8 H (30.3-42.9) % Plt Count 286 (140-440) K/mm3 Lymph # (Auto) 1.1 L (1.2-5.4) K/mm3 [place] # (Auto) 0.6 (0.0-0.8) K/mm3 Eos # (Auto) 0.1 (0.0-0.4) K/mm3 Baso # (Auto) 0.1 (0.0-0.1) K/mm3 Comprehensive Metabolic Panel 12/31/20 Range/Units 03:49 Sodium 136 L (137-145) mmol/L Potassium 4.2 (3.6-5.0) mmol/L Chloride 94.9 L (98-107) mmol/L Carbon Dioxide 38 H (22-30) mmol/L BUN 22 H (7-17) mg/dL Creatinine 1.0 (0.6-1.2) mg/dL Glucose 217 H (65-100) mg/dL Calcium 8.6 (8.4-10.2) mg/dL AST 70 H (5-40) units/L ALT 152 H (7-56) units/L Alkaline Phosphatase 228 H (35-129) units/L Total Protein 5.2 L (6.3-8.2) g/dL Albumin 3.0 L (3.9-5) g/dL - Imaging and Cardiology EKG: report reviewed, image reviewed Echo: report reviewed - Telemetry EKG Rhythm: Sinus Rhythm - EKG Sinus rhythms and dysrhythmias: sinus rhythm AV and intraventricular conduction: intraventricular conducti
--- NOTE | 2020-12-31 15:53 | XRay Report ---
CHEST 1 VIEW 12/31/2020 3:18 PM INDICATION / CLINICAL INFORMATION: f/u of RML infiltrate. COMPARISON: December 25, 2020 FINDINGS: SUPPORT DEVICES: None. HEART / MEDIASTINUM: Cardiomegaly LUNGS / PLEURA: Small bilateral effusions with mild increased pulmonary vascularity No pneumothorax. Impression:: Cardiomegaly with increased vascularity and small bilateral effusions. No significant ch bobbi. Signer Name: J Luis Herrera MD Signed: 12/31/2020 3:48 PM Workstation Name: [id number]
[2020-12-31] MEDS: ASPIRIN EC 81 MG TAB PO SCH (15:57)
[2020-12-31] MEDS: levoFLOXacin 750 MG TAB PO SCH (16:00)
[2020-12-31] MEDS: FUROSEMIDE 20 MG/2 ML INJ IV SCH (16:01)
[2020-12-31] MEDS: GABAPENTIN 300 MG CAP PO SCH ×2 (16:02→21:38)
--- NOTE | 2020-12-31 18:22 | Consultation ---
History of Present Illness - Reason for Consult Consult date: 12/31/20 Right Radial Thrombosis after Cardiac Cath Requesting physician: MÓNICA BONILLA - History of Present Illness The patient is a 65-year-old female who presented with a stroke affecting her left side. She had a work-up that ruled out carotid stenosis as a source of the stroke. She underwent a cardiac cath today and initially there was an attempt at right radial access however there was difficulty passing the wire so the attempt was aborted and the procedure was performed through femoral access. After the procedure the patient began complaining of right forearm swelling and discomfort. She denies any neurologic symptoms such as numbness or tingling in the right fingers. An ultrasound of her right upper extremity revealed acute thrombus within the mid and distal right radial artery. There is triphasic flow within the ulnar artery and no evidence of distal emboli. The patient has no additional complaints at this time. Past History Past Medical History: diabetes, heart failure, hypertension, stroke Past Surgical History: No surgical history, Other (Reviewed) Social history: single. denies: smoking, alcohol abuse Family history: diabetes, hypertension Medications and Allergies Allergies Allergy/AdvReac Type Severity Reaction Status Date / Time No Known Allergies Allergy Unverified 12/25/20 11:08 Home Medications Medication Instructions Recorded Confirmed Last Taken Type Gabapentin [Neurontin] 300 mg PO BID 12/25/20 12/25/20 Unknown History Glimepiride [Amaryl] 4 mg PO BID 12/25/20 12/25/20 Unknown History Losartan Potassium 100 mg PO QHS 12/25/20 12/25/20 Unknown History hydroCHLOROthiazide [Hctz] 12.5 mg PO QDAY 12/25/20 12/25/20 Unknown History Active Meds: Active Medications Acetaminophen (Acetaminophen 325 Mg Tab) 650 mg PO Q4H PRN PRN Reason: Pain, Mild (1-3) Amlodipine Besylate (Amlodipine 10 Mg Tab) 10 mg PO QDAY [facility] Last Admin: 12/31/20 10:49 Dose: 10 mg Documented by: Aspirin (Aspirin Ec 81 Mg Tab) 81 mg PO QDAY [facility] Last Admin: 12/31/20 15:57 Dose: 81 mg Documented by: Atorvastatin Calcium (Atorvastatin 40 Mg Tab) 80 mg PO QHS [facility] Last Admin: 12/30/20 21:08 Dose: 80 mg Documented by: Bisacodyl (Bisacodyl 10 Mg Rect Supp) 10 mg [place] QDAY PRN PRN Reason: Constipation Clopidogrel Bisulfate (Clopidogrel 75 Mg Tab) 75 mg PO QDAY [facility] Last Admin: 12/31/20 07:36 Dose: 75 mg Documented by: Enoxaparin Sodium (Enoxaparin 40 Mg/0.4 Ml Inj) 40 mg SUB-Q QDAY@2200 [facility]; Protocol Last Admin: 12/30/20 21:11 Dose: Not Given Documented by: Furosemide (Furosemide 20 Mg/2 Ml Inj) 20 mg IV QDAY [facility] Last Admin: 12/31/20 16:01 Dose: 20 mg Documented by: Gabapentin (Gabapentin 300 Mg Cap) 300 mg PO BID [facility] Last Admin: 12/31/20 16:02 Dose: 300 mg Documented by: Glimepiride (Glimepiride 2 Mg Tab) 2 mg PO QDDIAB [facility] Hydralazine HCl (Hydralazine 20 Mg/1 Ml Inj) 10 mg IV Q4HR PRN PRN Reason: Hypertension Hydralazine HCl (Hydralazine 10 Mg Tab) 10 mg PO Q8HR [facility] Last Admin: 12/31/20 15:58 Dose: 10 mg Documented by: Sodium Chloride (Nacl 0.9% 1000 Ml) 1,000 mls @ 60 mls/hr IV DIRECT [facility] Heparin Sodium/Sodium Chloride (Heparin/ 0.45% Nacl-25,000 Unit/500 Ml) 25,000 unit in 500 mls @ 20 mls/hr IV TITRATE [facility]; Protocol Last Admin: 12/31/20 13:10 Dose: 1,000 units/hr, 20 mls/hr Documented by: Insulin Human Lispro (Insulin Lispro 100 Unit/Ml) 0 unit SUB-Q ACHS [facility]; Pro tocol Levofloxacin (Levofloxacin 750 Mg Tab) 750 mg PO Q24H [facility]; Protocol Stop: 01/01/21 11:01 Last Admin: 12/31/20 16:00 Dose: 750 mg Documented by: Magnesium Hydroxide (Magnesium Hydroxide (Mom) Oral Liqd Udc) 30 ml PO Q4H PRN PRN Reason: Constipation Metoclopramide HCl (Metoclopramide 10 Mg Tab) 10 mg PO Q6H PRN PRN Reason: Nausea And Vomiting Last Admin: 12/27/20 07:46 Dose: 10 mg Documented by: Metoprolol Tartrate (Metoprolol Tartrate 50 Mg Tab) 50 mg PO BID [facility] Last Admin: 12/31/20 10:24 Dose: 50 mg Documented by: Ondansetron HCl (Ondansetron 4 Mg/2 Ml Inj) 4 mg IV Q8H PRN PRN Reason: Nausea And Vomiting Last Admin: 12/27/20 11:11 Dose: 4 mg Documented by: Promethazine HCl (Promethazine 25 Mg Rect Supp) 25 mg [place] Q6H PRN PRN Reason: Nausea And Vomiting Last Admin: 12/27/20 14:12 Dose: 25 mg Documented by: Sodium Chloride (Sodium Chloride 0.9% 10 Ml Flush Syringe) 10 ml IV PRN PRN PRN Reason: LINE FLUSH Tramadol HCl (Tramadol 50 Mg Tab) 50 mg PO Q6H PRN PRN Reason: Pain, Moderate (4-6) Last Admin: 12/26/20 22:54 Dose: 50 mg Documented by: Review of Systems All systems: negative Exam - Constitutional Vitals: Temp Pulse Resp BP Pulse Ox 97.7 F 74 18 145/84 95 12/31/20 16:35 12/31/20 16:35 12/31/20 16:35 12/31/20 16:35 12/31/20 16:35 General appearance: Present: no acute distress - Respiratory Respiratory effort: normal - Cardiovascular Rhythm: regular - Extremities Extremities: no ischemia, abnormal (Right mid forearm with small hematoma that is mildly tender, no palpable pulsatile mass) Extremity abnormal: pulses diminished (Nonpalpable right radial pulse), other (Right fingers with brisk capillary refill) - Abdominal General gastrointestinal: Present: soft, non-tender Female genitourinary: Present: deferred - Rectal Rectal Exam: deferred - Musculoskeletal Musculoskeletal: other (Right hand with 5/5 customs guard strength) - Neurologic Neurologic: other (Right hand with sensation intact) Results - Labs CBC & Chem 7: 12/30/20 15:46 12/31/20 03:49 Labs: Abnormal lab results 12/31/20 12/31/20 12/31/20 Range/Units 03:49 05:10 13:41 Sodium 136 L (137-145) mmol/L Chloride 94.9 L (98-107) mmol/L Carbon Dioxide 38 H (22-30) mmol/L BUN 22 H (7-17) mg/dL Glucose 217 H (65-100) mg/dL POC Glucose 182 H 217 H (70-105) mg/dL AST 70 H (5-40) units/L ALT 152 H (7-56) units/L Alkaline Phosphatase 228 H (35-129) units/L Total Protein 5.2 L (6.3-8.2) g/dL Albumin 3.0 L (3.9-5) g/dL - Imaging and Cardiology Venous US: other (Right upper extremity venous and arterial duplex films were reviewed) Assessment and Plan The patient is a 65-year-old female who underwent a cardiac cath and had difficulty with advancing the wire during radial access. Post procedure she was found to have acute thrombus within the mid and distal radial artery. Review of the ultrasound films reveal a transition in the proximal and mid radial artery with a significantly dilated artery to suggest disruption of the artery which would explain the hematoma as well as the resulting thrombosis. The patient is currently on a heparin drip after the finding of thrombosis. I would recommend discontinuing the heparin drip as the patient is asymptomatic and without any sensory or motor deficits in her right hand. Additionally the patient likely has a disruption or injury to the right radial artery and there is more risk of bleeding from the heparin drip then there is to the benefit of recannulization. I discussed this with the patient as well as her sister who was in the room at the time. They have expressed understanding and agree with the plan.
[2020-12-31] MEDS: ENOXAPARIN 40 MG/0.4 ML INJ SUB-Q SCH (21:40)
[2020-12-31] MEDS: INSULIN LISPRO 100 UNIT/ML SUB-Q SCH (21:41)
[2021-01-01] MEDS: INSULIN LISPRO 100 UNIT/ML SUB-Q SCH ×3 (08:03→16:50)
[2021-01-01] MEDS: GLIMEPIRIDE 2 MG TAB PO SCH (09:59)
[2021-01-01] MEDS: FUROSEMIDE 20 MG/2 ML INJ IV SCH (09:59)
[2021-01-01] MEDS: METOPROLOL TARTRATE 50 MG TAB PO SCH ×2 (09:59→22:50)
[2021-01-01] MEDS: amLODIPine 10 MG TAB PO SCH (09:59)
[2021-01-01] MEDS: GABAPENTIN 300 MG CAP PO SCH ×2 (09:59→22:50)
[2021-01-01] MEDS: ASPIRIN EC 81 MG TAB PO SCH (10:00)
[2021-01-01] MEDS: CLOPIDOGREL 75 MG TAB PO SCH (10:00)
--- NOTE | 2021-01-01 10:13 | Progress Note ---
Subjective Date of service: 01/01/21 Principal diagnosis: CVA Interval history: Assessment and plan: #CVA CT head negative for any acute infarct CTA head and neck - no significant stenosis MRI brain shows small acute infarct in the right precentral gyrus. Echo shows systolic HF with no PFO, or septal defects Continue aspirin and statins Neurology evaluation appreciated. Continue physical therapy #NSTEMI Cardiology following Ischemic evaluation per cardiology Status post [facility] yesterday-findings reviewed Minimal coronary occlusive disease Thrombosis of right radial artery Cardiology and vascular notes reviewed Heparin IV was discontinued Await further recommendations #ANGELLA Secondary to vasomotor nephropathy Improving Avoid nephrotoxic medications #Systolic heart failure EF 15-20% Ischemic/severe dilated cardiomyopathy Patient has a LifeVest now #Right middle lobe pneumonia Continue Levaquin. Complete on 01/03. #Type 2 diabetes Accu-Cheks reviewed Patient's home medications reviewed Continue glimepiride 2 mg daily Continue insulin sliding scale coverage #DVT ppx - Lovenox History Interval history: 65 YO Female with Obesity, HTN, DM presents to ED for evaluation. Pt reports " I feel weak". Patient states that she was in her usual state of health at bedtime which was around 2200 hrs. Patient states that she awoke from sleep at 1000 hrs. and was found to have left arm and leg weakness. Patient reports difficulty grasping and holding onto objects with her left hand as well as unsteady gait. In the ER, stroke code was called and patient was seen by teleneurologist. CT head was negative for any stroke. Other findings on admission include elevated troponin and right middle lobe pneumonia. Patient was thus admitted to the hospital for further evaluation. Cardiology and neurology consulted 12/26. She denies any chest pain this morning. For right middle lobe pneumonia, patient is on IV antibiotics. Cardiology was consulted for elevated troponin. 12/27: Patient clinically stable, no further nausea but BP still fluctuating, Discussed the finding of Pleural effusion, patient with no shortness of breath, if no improvement will recommend outpatient thoracentesis. Change abx to Levaquin due to the nausea and vomiting since starting Cefepime and azithromycin Echo is pending. Monitor and adjust Blood sugar control. 12/28. Echocardiogram shows severe LV dysfunction with EF of 15 to 20%. No PFO or septal defects seen. Cardiology is following. Patient may need ischemic work-up. 12/29. Patient to have ischemic work up as outpatient. She is on diuretics. Cr bumped to 1.8 yesterday. AM BMP pending. Consider holding lasix. MRI brain result is still pending. 12/30. Patient is very eager to go home. Discussed with cardiology-patient may need ischemic work-up prior to discharge was outpatient. MRI brain shows a small infarct in the right precentral gyrus. Patient remains on antiplatelets and statins. She is also on IV antibiotics for pneumonia. . 01/01 patient is alert and oriented not in any distress. Complains of pain in the right forearm. She is now on LifeVest. Yesterday's events reviewed LHC results reviewed. Vascular note reviewed Objective - Constitutional Vitals: Vital Signs - 12hr 01/01/21 01/01/21 01/01/21 00:05 04:55 08:05 Temperature 98.0 F 97.8 F Pulse Rate 75 74 70 Respiratory 18 18 Rate Blood Pressure 138/88 157/86 O2 Sat by Pulse 98 96 Oximetry 01/01/21 08:15 Temperature 97.9 F Pulse Rate 76 Respiratory 20 Rate Blood Pressure 164/86 O2 Sat by Pulse 96 Oximetry General appearance: Present: no acute distress, well-nourished - EENT Eyes: PERRL, EOM intact ENT: hearing intact - Neck Neck: supple, normal ROM - Respiratory Respiratory effort: normal Respiratory: bilateral: CTA - Cardiovascular Rhythm: regular Heart Sounds: Present: S1 & S2 Extremity abnormal: edema (Trace bilateral leg edema) - Gastrointestinal General gastrointestinal: Present: soft, non-tender Rectal Exam: deferred - Genitourinary Female genitourinary: deferred - Integumentary Integumentary: clear - Musculoskeletal Musculoskeletal: strength equal bilaterally - Neurologic Neurologic: no focal deficits, moves all extremities - Psychiatric Psychiatric: appropriate mood/affect - Labs CBC & Chem 7: 12/30/20 15:46 12/31/20 03:49 Labs: Abnormal lab results 12/31/20 12/31/20 01/01/21 Range/Units 13:41 21:37 05:06 POC Glucose 217 H 267 H 186 H (70-105) mg/dL HEART Score - HEART Score Troponin: Troponin T 0.093 ng/mL (0.00-0.029) H 12/30/20 07:22
[2021-01-01] MEDS ORDERED: levoFLOXacin 750 MG TAB ONE (16:56)
[2021-01-01] MEDS ORDERED: levoFLOXacin 750 MG TAB PO SCH (17:00)
[2021-01-01] MEDS: hydrALAZINE 10 MG TAB PO SCH ×3 (17:01→22:51)
[2021-01-01] MEDS: levoFLOXacin 750 MG TAB PO SCH (17:02)
--- NOTE | 2021-01-01 22:51 | Progress Note ---
Assessment and Plan Vasc Surg recs noted. Continue bASA & Plavix. May hold statin if LFTs do not improve. Otherwise can likely transition to PO Lasix in AM. Will also convert PO Lopressor to Toprol. Add ACEi. Given overall clinical picture, suspect cardiomyopathy in the setting of hypertensive heart disease over sarcoidosis despite conduction disease. Pt seen in conjunction with Dr. Herrera, who agrees with the assessment and plan of care. - Patient Problems (1) CVA (cerebral vascular accident) Current Visit: Yes Status: Acute Qualifiers: Qualified Code(s): I63.9 - Cerebral infarction, unspecified (2) Acute HFrEF (heart failure with reduced ejection fraction) Current Visit: Yes Status: Acute (3) NICM (nonischemic cardiomyopathy) Current Visit: Yes Status: Chronic (4) NSVT (nonsustained ventricular tachycardia) Current Visit: Yes Status: Acute Plan to address problem: LifeVest in situ (5) NSTEMI (non-ST elevated myocardial infarction) Current Visit: Yes Status: Acute Plan to address problem: Type 2 (6) Mild CAD Current Visit: Yes Status: Chronic (7) Radial artery thrombosis, right Current Visit: Yes Status: Acute (8) HTN (hypertension) Current Visit: Yes Status: Chronic Qualifiers: Hypertension type: essential hypertension Qualified Code(s): I10 - Essential (primary) hypertension (9) HLD (hyperlipidemia) Current Visit: Yes Status: Chronic Qualifiers: Hyperlipidemia type: mixed hyperlipidemia Qualified Code(s): E78.2 - Mixed hyperlipidemia (10) DM2 (diabetes mellitus, type 2) Current Visit: Yes Status: Chronic (11) Neuropathy Current Visit: Yes Status: Chronic Subjective Date of service: 01/01/21 Principal diagnosis: CVA Interval history: Resting comfortably. Reports mild RLE pain. Otherwise states she is feeling good. Tele reviewed - SR 70s, intermittent NSVT noted (LifeVest in situ). Objective Last Vital Signs Temp 98.5 F 01/01/21 20:03 Pulse 84 01/01/21 20:03 Resp 18 01/01/21 20:03 BP 158/84 01/01/21 20:03 Pulse Ox 96 01/01/21 20:03 - Physical Examination General: No Apparent Distress HEENT: Positive: EOMI, Normocephaly, Mucus Membranes Moist Neck: Positive: neck supple, trachea midline. Negative: JVD/HJR Cardiac: Positive: Reg Rate and Rhythm, S1/S2 Lungs: Positive: clear to auscultation Neuro: Positive: Weakness Abdomen: Positive: Soft. Negative: Tender Skin: Negative: Rash Musculoskeletal: No Pain Extremities: Present: upper extr. pulses (trace R rad pulse, good ulnar pulse), lower extr. pulses. Absent: edema - Imaging and Cardiology EKG: report reviewed, image reviewed Echo: report reviewed (12/25/2020 - EF 15-20%, mild concentric LVH, LV mildly dilated, mod LV diastolic dysfxn, LVEDP mod elevated, ) Cardiac cath: report reviewed (12/31/2020 - markedly dilated LV, elevated LVEDP, EF 15-20%, minimal coronary disease (10% LAD lesion)) - Telemetry EKG Rhythm: Sinus Rhythm - EKG Sinus rhythms and dysrhythmias: sinus rhythm AV and intraventricular conduction: intraventricular conducti
[2021-01-02] MEDS ORDERED: ZOLPIDEM 5 MG TAB PO PRN (00:07)
[2021-01-02] MEDS: ENOXAPARIN 40 MG/0.4 ML INJ SUB-Q SCH (00:47)
[2021-01-02] MEDS: INSULIN LISPRO 100 UNIT/ML SUB-Q SCH ×4 (00:47→12:02)
[2021-01-02] MEDS: hydrALAZINE 10 MG TAB PO SCH (06:39)
[2021-01-02 07:40] LABS: Alanine Aminotransferase 87 units/L (7-56); Albumin 2.8 g/dL (3.9-5); BUN/Creatinine Ratio 14; Blood Urea Nitrogen 13 mg/dL (7-17); Calcium 8.4 mg/dL (8.4-10.2); Hemolysis Index 7
[2021-01-02] MEDS: GLIMEPIRIDE 2 MG TAB PO SCH (08:48)
[2021-01-02] MEDS: CLOPIDOGREL 75 MG TAB PO SCH ×2 (09:15→09:53)
[2021-01-02] MEDS: ASPIRIN EC 81 MG TAB PO SCH (09:52)
[2021-01-02 09:53] VITALS: BP 169/89
[2021-01-02] MEDS: amLODIPine 10 MG TAB PO SCH (09:53)
[2021-01-02] MEDS: GABAPENTIN 300 MG CAP PO SCH (09:53)
[2021-01-02] MEDS ORDERED: METOPROLOL SUCCINATE XL 50 MG TAB PO SCH (10:00)
[2021-01-02] MEDS ORDERED: LISINOPRIL 10 MG TAB PO SCH (10:00)
[2021-01-02] MEDS ORDERED: FUROSEMIDE 20 MG TAB PO SCH (10:00)
[2021-01-02] MEDS ORDERED: LISINOPRIL 5 MG TAB PO SCH (10:00)
--- NOTE | 2021-01-02 10:06 | Discharge Summary ---
Providers - Providers Date of Admission: 12/25/20 18:01 Date of discharge: 01/02/21 Attending physician: BRUNA JACOBO 12/25/20 Consult to Cardiac Rehabilitation [CONS] Routine Reason For Exam: Phase I 12/25/20 15:06 Consult to Cardiology [CONS] Routine Consulting Provider: CLINTON MARTÍNEZ Reason For Exam: nstemi Occupational Therapy Evaluate and Treat [CONS] Routine Comment: Reason For Exam: Neuro deficits Physical Therapy Evaluation and Treat [CONS] Routine Comment: Reason For Exam: Neuro deficits 12/25/20 15:08 Speech Therapy Evaluation and Treat [CONS] Routine Reason For Exam: swallow eval 12/26/20 11:05 Consult to Physician [CONS] Routine Comment: Consulting Provider: NO SMITH Physician Instructions: Reason For Exam: CVA 12/27/20 15:44 Occupational Therapy Evaluate and Treat [CONS] Routine Comment: Outpatient OT Reason For Exam: Neuro deficits 12/29/20 11:16 Consult to Physician [CONS] Routine Comment: Consulting Provider: ROBERT TIPTON Physician Instructions: Reason For Exam: CVA 12/31/20 12:44 Consult to Physician [CONS] Routine Comment: Consulting Provider: BETHANY WESLEY Physician Instructions: Reason For Exam: Radial Artery Thrombus s/p Left Heart Cath Primary care physician: [employer] Hospitalization Condition: Stable Hospital course: Assessment and plan: #CVA CT head negative for any acute infarct CTA head and neck - no significant stenosis MRI brain shows small acute infarct in the right precentral gyrus. Echo shows systolic HF with no PFO, or septal defects Continue aspirin and statin Neurology evaluation appreciated. Physical therapy evaluated the patient and no need for PT/OT #NSTEMI Cardiology consulted Status post [facility] yesterday-findings reviewed Minimal coronary occlusive disease Discussed with Dr. Jose Cruz Jacobo prior to discharge Thrombosis of right radial artery Cardiology and vascular notes reviewed Heparin IV was discontinued per recommendations of vascular surgery #ANGELLA Secondary to vasomotor nephropathy Improved #Systolic heart failure EF 15-20% Ischemic/severe dilated cardiomyopathy Patient has a LifeVest now Patient will follow up with cardiology in 10 days #Right middle lobe pneumonia No need for further antibiotic therapy Chest x-ray reviewed #Type 2 diabetes Accu-Cheks reviewed Patient's home medications reviewed Continue glimepiride 2 mg daily Hyperlipidemia Continue statin Discussed with Dr. Blanca jacobo He is okay with continuing statin Elevated LFTs Trending down but still mildly elevated We will continue statin per discussion with cardiology Moderate PCM History Interval history: 65 YO Female with Obesity, HTN, DM presents to ED for evaluation. Pt reports " I feel weak". Patient states that she was in her usual state of health at bedtime which was around 2200 hrs. Patient states that she awoke from sleep at 1000 hrs. and was found to have left arm and leg weakness. Patient reports difficulty grasping and holding onto objects with her left hand as well as unsteady gait. In the ER, stroke code was called and patient was seen by teleneurologist. CT head was negative for any stroke. Other findings on admission include elevated troponin and right middle lobe pneumonia. Patient was thus admitted to the hospital for further evaluation. Cardiology and neurology consulted 12/26. She denies any chest pain this morning. For right middle lobe pneumonia, patient is on IV antibiotics. Cardiology was consulted for elevated troponin. 12/27: Patient clinically stable, no further nausea but BP still fluctuating, Discussed the finding of Pleural effusion, patient with no shortness of breath, if no improvement will recommend outpatient thoracentesis. Change abx to Levaquin due to the nausea and vomiting since starting Cefepime and azithromycin Echo is pending. Monitor and adjust Blood sugar control. 12/28. Echocardiogram shows severe LV dysfunction with EF of 15 to 20%. No PFO or septal defects seen. Cardiology is following. Patient may need ischemic work-up. 12/29. Patient to have ischemic work up as outpatient. She is on diuretics. Cr bumped to 1.8 yesterday. AM BMP pending. Consider holding lasix. MRI brain result is still pending. 12/30. Patient is very eager to go home. Discussed with cardiology-patient may need ischemic work-up prior to discharge was outpatient. MRI brain shows a small infarct in the right precentral gyrus. Patient remains on antiplatelets and statins. She is also on IV antibiotics for pneumonia. . 01/01 patient is alert and oriented not in any distress. Complains of pain in the right forearm. She is now on LifeVest. Yesterday's events reviewed C results reviewed. Vascular note reviewed 01/02 patient is alert and oriented and offers no specific complaints. Discussed with cardiology Dr. Jose Cruz Jacobo and patient was cleared for discharge. Patient is medically stable for discharge Disposition: DC-01 TO HOME OR SELFCARE Final Discharge Diagnosis (Prints w/discharge instructions): Acute stroke and NSTEMI Time spent for discharge: 38 min Core Measure Documentation - Palliative Care Palliative Care/ Comfort Measures: Not Applicable - Core Measures Any of the following diagnoses?: heart failure - Heart Failure Discharge Requirements CARI/ARB for LVSD if EF <40%: Yes Beta talat at discharge: Yes Exam - Constitutional Vitals: Temp Pulse Resp BP Pulse Ox 98.9 F 80 18 169/89 100 01/01/21 23:49 01/02/21 09:58 01/01/21 23:49 01/02/21 09:58 01/01/21 23:49 General appearance: Present: no acute distress, well-nourished - EENT Eyes: Present: PERRL ENT: hearing intact - Neck Neck: Present: supple, normal ROM. Absent: masses or JVD - Respiratory Respiratory effort: normal Respiratory: bilateral: CTA, diminished, negative: rales, rhonchi - Cardiovascular Rhythm: regular Heart Sounds: Present: S1 & S2 - Extremities Extremities: No edema - Abdominal General gastrointestinal: Present: soft, non-tender - Rectal Rectal Exam: deferred - Integumentary Integumentary: Present: clear - Musculoskeletal Musculoskeletal: strength equal bilaterally - Psychiatric Psychiatric: appropriate mood/affect - Neurologic Neurologic: moves all extremities Plan Activity: advance as tolerated, fall precautions Weight Bearing Status: Weight Bear as Tolerated Diet: regular, low fat, low cholesterol, low salt, diabetic Wound: keep clean and dry Special Instructions: restrict fluid intake to (1500 ml/day) Follow up with: PRIMARY MD JACLYN [Primary Care Provider] - 3-5 Days ARA CHRISTINE MD [Staff Physician] - 10 Days Prescriptions: Glimepiride [Amaryl] 2 mg PO QDDIAB #30 tablet amLODIPine 10 mg PO QDAY #30 tablet Gabapentin 300 mg PO BID #60 cap Aspirin EC [Halfprin EC] 81 mg PO QDAY #30 tablet Furosemide [Lasix TAB] 20 mg PO QDAY #30 tablet AtorvaSTATin [Lipitor] 80 mg PO QHS #30 tablet Metoprolol Xl [Metoprolol SUCCINATE ER TAB] 50 mg PO QDAY #30 tablet Clopidogrel [Plavix] 75 mg PO QDAY #30 tablet traMADoL [Ultram 50 MG tab] 50 mg PO Q6H PRN #30 tablet PRN Reason: Pain, Moderate (4-6) lisinopriL [Zestril TAB] 10 mg PO QDAY #30 tablet
--- NOTE | 2021-01-02 12:48 | Progress Note ---
Assessment and Plan Transition to PO Lasix 20mg daily. Continue BB and ACEi. Continue bASA, Plavix, and statin. Currently stable cardiac status. Pt may be discharged from a Cardiology perspective. Will recheck CMP x 7 days. Recommend follow-up with Dr. Lares within 1-2 weeks ([phone]). Pt seen in conjunction with Dr. Herrera, who agrees with the assessment and plan of care. - Patient Problems (1) CVA (cerebral vascular accident) Status: Acute Qualifiers: Qualified Code(s): I63.9 - Cerebral infarction, unspecified (2) Acute HFrEF (heart failure with reduced ejection fraction) Status: Acute (3) NICM (nonischemic cardiomyopathy) Status: Chronic (4) NSVT (nonsustained ventricular tachycardia) Status: Acute Plan to address problem: LifeVest in situ (5) NSTEMI (non-ST elevated myocardial infarction) Status: Acute Plan to address problem: Type 2 (6) Mild CAD Status: Chronic (7) Radial artery thrombosis, right Status: Acute (8) HTN (hypertension) Status: Chronic Qualifiers: Hypertension type: essential hypertension Qualified Code(s): I10 - [place] l (primary) hypertension (9) HLD (hyperlipidemia) Status: Chronic Qualifiers: Hyperlipidemia type: mixed hyperlipidemia Qualified Code(s): E78.2 - Mixed hyperlipidemia (10) DM2 (diabetes mellitus, type 2) Status: Chronic (11) Neuropathy Status: Chronic Subjective Date of service: 01/02/21 Principal diagnosis: CVA, NICMP Interval history: Resting comfortably. No complaints, wants to go home. Tele reviewed - SR 70s, no events overnight. Objective Last Vital Signs Temp 98.9 F 01/01/21 23:49 Pulse 80 01/02/21 10:00 Resp 18 01/01/21 23:49 BP 169/89 01/02/21 09:58 Pulse Ox 100 01/01/21 23:49 - Physical Examination General: No Apparent Distress HEENT: Positive: EOMI, Normocephaly, Mucus Membranes Moist Neck: Positive: neck supple, trachea midline. Negative: JVD/HJR Cardiac: Positive: Reg Rate and Rhythm, S1/S2 Lungs: Positive: clear to auscultation Neuro: Positive: Grossly Intact, Weakness Abdomen: Positive: Soft. Negative: Tender Skin: Negative: Rash Incision: Cardiac Cath Site (R radial) Musculoskeletal: No Pain Extremities: Present: upper extr. pulses (trace R rad pulse, good ulnar pulse), lower extr. pulses. Absent: edema - Labs and Meds Cardiac Enzymes 01/02/21 Range/Units 04:56 AST 26 (5-40) units/L Comprehensive Metabolic Panel 01/02/21 Range/Units 04:56 Sodium 140 (137-145) mmol/L Potassium 3.6 (3.6-5.0) mmol/L Chloride 97.5 L (98-107) mmol/L Carbon Dioxide 35 H (22-30) mmol/L BUN 13 (7-17) mg/dL Creatinine 0.9 (0.6-1.2) mg/dL Glucose 106 H (65-100) mg/dL Calcium 8.4 (8.4-10.2) mg/dL AST 26 (5-40) units/L ALT 87 H (7-56) units/L Alkaline Phosphatase 179 H (35-129) units/L Total Protein 5.9 L (6.3-8.2) g/dL Albumin 2.8 L (3.9-5) g/dL - Imaging and Cardiology EKG: report reviewed, image reviewed Echo: report reviewed (12/25/2020 - EF 15-20%, mild concentric LVH, LV mildly dilated, mod LV diastolic dysfxn, LVEDP mod elevated, ) Cardiac cath: report reviewed (12/31/2020 - markedly dilated LV, elevated LVEDP, EF 15-20%, minimal coronary disease (10% LAD lesion)) - Telemetry EKG Rhythm: Sinus Rhythm - EKG Sinus rhythms and dysrhythmias: sinus rhythm AV and intraventricular conduction: intraventricular conducti
== END 2021-01-02 12:27 | disposition home or self-care (01) | DRG 64 ==
LOC: ED 10:56 → 4A 18:01
PROVIDERS: ADMIT Internal Medicine; ATTEND Internal Medicine
PROC: 4A023N7 Measurement of Cardiac Sampling and Pressure, Left Heart, Percutaneous Approach (ICD-10-PCS; principal; 2020-12-31)
PROC: B2151ZZ Fluoroscopy of Left Heart using Low Osmolar Contrast (ICD-10-PCS; 2020-12-31)
PROC: B2111ZZ Fluoroscopy of Multiple Coronary Arteries using Low Osmolar Contrast (ICD-10-PCS; 2020-12-31)
DX: I63.9 Cerebral infarction, unspecified (principal); J18.9 Pneumonia, unspecified organism; I21.A1 Myocardial infarction type 2; I50.43 Acute on chronic combined systolic (congestive) and diastolic (congestive) heart failure; N17.0 Acute kidney failure with tubular necrosis; G81.94 Hemiplegia, unspecified affecting left nondominant side; I47.2 Ventricular tachycardia; I42.8 Other cardiomyopathies; I74.2 Embolism and thrombosis of arteries of the upper extremities; I11.0 Hypertensive heart disease with heart failure; E66.9 Obesity, unspecified; Z68.34 Body mass index [BMI] 34.0-34.9, adult; E11.65 Type 2 diabetes mellitus with hyperglycemia; R29.703 NIHSS score 3; Z79.84 Long term (current) use of oral hypoglycemic drugs; Z79.899 Other long term (current) drug therapy; R29.810 Facial weakness; E78.2 Mixed hyperlipidemia; E11.42 Type 2 diabetes mellitus with diabetic polyneuropathy; I25.10 Atherosclerotic heart disease of native coronary artery without angina pectoris
CPT/HCPCS: 36415; 70450; 70496; 70498; 70551; 71045; 71046; 71275; 80048; 80053; 80061; 81001; 82962; 83690; 83880; 84484; 85025; 85610; 85730; 93005; 93306; 93458; 93880; 93970; 96365; G0378; C1894; J0360; J0456; J0696; J1644; J1650; J1940; J2250; J2405; J3010; J7040; Q9967

== ENCOUNTER 2022-04-16 18:22 | Inpatient (IN) | payer MEDICARE, SELFPAY ==
--- NOTE | 2022-04-16 21:09 | XRay Report ---
CHEST 2 VIEWS INDICATION / CLINICAL INFORMATION: Dyspnea. COMPARISON: 12/31/2020 FINDINGS: SUPPORT DEVICES: None. HEART / MEDIASTINUM: Stable cardiomegaly. LUNGS / PLEURA: Small left pleural effusion with prominent interstitial lung markings most pronounced in the left lung base. No pneumothorax. ADDITIONAL FINDINGS: No significant additional findings. IMPRESSION: 1. Mild pulmonary edema and small left pleural effusion. Signer Name: Efe Moise MD Signed: 04/16/2022 9:05 PM Workstation Name: [email or web address]
[2022-04-16 21:40] LABS: Basophils # (Auto) 0.2 K/mm3 (0.0-0.1); Basophils % (Auto) 2.6 % (0.0-1.8); Eosinophils # (Auto) 0.2 K/mm3 (0.0-0.4); Eosinophils % (Auto) 3.7 % (0.0-4.3); Hematocrit 44.7 % (30.3-42.9); Lymphocytes # (Auto) 1.5 K/mm3 (1.2-5.4); Lymphocytes % (Auto) 23.8 % (13.4-35.0); Mean Corpuscular HGB Conc 31 % (30-34); Mean Corpuscular Volume 93 fl (79-97); Monocytes # (Auto) 0.5 K/mm3 (0.0-0.8); Monocytes % (Auto) 8.9 % (0.0-7.3); Platelet Count 258 K/mm3 (140-440); Red Blood Count 4.81 M/mm3 (3.65-5.03); Red Cell Distribution Width 14.1 % (13.2-15.2)
[2022-04-16 21:45] LABS: Calcium 8.5 mg/dL (8.4-10.2)
[2022-04-17] MEDS ORDERED: FUROSEMIDE 40 MG/4 ML INJ IV ONE (06:26)
[2022-04-17] MEDS ORDERED: NITROGLYCERIN 2% OINT 1 GM TP ONE (07:08)
--- NOTE | 2022-04-17 07:12 | Emergency Department Report ---
ED Shortness of Breath HPI - General Chief Complaint: Dyspnea/Respdistress Stated Complaint: 5 WEEKS CONSTIPATED Time Seen by Provider: 04/17/22 06:11 Source: patient, old records reviewed (Left heart cath performed here December 2020 results reviewed) Mode of arrival: Ambulatory Limitations: No Limitations - History of Present Illness Initial Comments: 66-year-old female with a past medical history of nonischemic cardiomyopathy with a EF of 15 to 20%, diabetes, obesity, and hypertension presents to the hospital complaints of progressive worsening lower extremity edema and dyspnea for the last week. Dyspnea worse when lying supine. Patient has intermittent chest pressure with walking upstairs. Patient complains of a dry cough without fever. Dyspnea improved at rest and was sitting upright. Patient denies calf tenderness or fever. She is compliant with her cardiology visits with last appointment 2 to [address] Herrera with [facility]. She is compliant with her medication . Patient's current medications (meds patient brought to the hospital) Aspirin 81 mg Lasix 20 mg daily Gabapentin Glimepiride 4 mg daily Lisinopril 20 mg daily -: week(s) - Related Data Previous Rx's Medication Instructions Recorded Last Taken Type RX: Aspirin EC [Halfprin EC] 81 mg PO QDAY #30 tablet 01/02/21 Unknown Rx RX: AtorvaSTATin [Lipitor] 80 mg PO QHS #30 tablet 01/02/21 Unknown Rx RX: Clopidogrel [Plavix] 75 mg PO QDAY #30 tablet 01/02/21 Unknown Rx RX: Furosemide [Lasix TAB] 20 mg PO QDAY #30 tablet 01/02/21 Unknown Rx RX: Gabapentin 300 mg PO BID #60 cap 01/02/21 Unknown Rx RX: Glimepiride [Amaryl] 2 mg PO QDDIAB #30 tablet 01/02/21 Unknown Rx RX: Metoprolol Xl [Metoprolol 50 mg PO QDAY #30 tablet 01/02/21 Unknown Rx SUCCINATE ER TAB] RX: amLODIPine 10 mg PO QDAY #30 tablet 01/02/21 Unknown Rx RX: lisinopriL [Zestril TAB] 10 mg PO QDAY #30 tablet 01/02/21 Unknown Rx RX: traMADoL [Ultram 50 MG tab] 50 mg PO Q6H PRN #30 tablet 01/02/21 Unknown Rx Allergies Allergy/AdvReac Type Severity Reaction Status Date / Time No Known Allergies Allergy Unverified 12/25/20 11:08 ED Review of Systems ROS: Stated complaint: 5 WEEKS CONSTIPATED Other details as noted in HPI Comment: All other systems reviewed and negative ED Past Medical Hx - Past Medical History Hx Hypertension: Yes Hx Heart Attack/AMI: Yes Hx Congestive Heart Failure: Yes Hx Diabetes: Yes - Social History Smoking Status: Never Smoker - Medications Home Medications: Home Medications Medication Instructions Recorded Confirmed Last Taken Type RX: Aspirin EC [Halfprin EC] 81 mg PO QDAY #30 tablet 01/02/21 Unknown Rx RX: AtorvaSTATin [Lipitor] 80 mg PO QHS #30 tablet 01/02/21 Unknown Rx RX: Clopidogrel [Plavix] 75 mg PO QDAY #30 tablet 01/02/21 Unknown Rx RX: Furosemide [Lasix TAB] 20 mg PO QDAY #30 tablet 01/02/21 Unknown Rx RX: Gabapentin 300 mg PO BID #60 cap 01/02/21 Unknown Rx RX: Glimepiride [Amaryl] 2 mg PO QDDIAB #30 tablet 01/02/21 Unknown Rx RX: Metoprolol Xl [Metoprolol 50 mg PO QDAY #30 tablet 01/02/21 Unknown Rx SUCCINATE ER TAB] RX: amLODIPine 10 mg PO QDAY #30 tablet 01/02/21 Unknown Rx RX: lisinopriL [Zestril TAB] 10 mg PO QDAY #30 tablet 01/02/21 Unknown Rx RX: traMADoL [Ultram 50 MG tab] 50 mg PO Q6H PRN #30 tablet 01/02/21 Unknown Rx ED Physical Exam - General Limitations: No Limitations - Other Other exam information: General: No acute distress Head: Atraumatic Eyes: normal appearance ENT: Moist mucous membranes Neck: Normal appearance, no midline tenderness Chest: Dry cough, mild crackles CV: Regular rate and rhythm Abdomen: Soft, normal bowel sounds, nontender, nondistended, no rebound or guarding Back: Normal inspection Extremity: 3+ bilateral lower extremity pitting edema. No calf tenderness. No leg asymmetry, no warmth Neuro: Alert O x 3, no facial asymmetry, speech clear, no gross motor sensory deficit Psych: Appropriate behavior Skin: No rash ED Course Vital Signs 04/16/22 04/17/22 04/17/22 19:51 06:31 06:45 Temperature 98.5 F Pulse Rate 99 H 95 H 91 H Respiratory 20 46 H 13 Rate Blood Pressure 191/107 Blood Pressure 184/115 [Right] O2 Sat by Pulse 95 96 99 Oximetry ED Medical Decision Making - Lab Data Result diagrams: 04/16/22 20:48 04/16/22 20:48 - EKG Data -: EKG Interpreted by Me EKG shows normal: sinus rhythm, ST-T waves (No STEMI) Rate: normal - EKG Data When compared to previous EKG there are: no significant change - Radiology Data Radiology results: report reviewed CHEST 2 VIEWS INDICATION / CLINICAL INFORMATION: Dyspnea. COMPARISON: 12/31/2020 FINDINGS: SUPPORT DEVICES: None. HEART / MEDIASTINUM: Stable cardiomegaly. LUNGS / PLEURA: Small left pleural effusion with prominent interstitial lung markings most pronounced in the left lung base. No pneumothorax. ADDITIONAL FINDINGS: No significant additional findings. IMPRESSION: 1. Mild pulmonary edema and small left pleural effusion. DUPLEX DOPPLER LOWER EXTREMITY VEINS, BILATERAL INDICATION / CLINICAL INFORMATION: b/l leg edema. TECHNIQUE: Duplex doppler imaging was performed through the veins of both lower extremities using venous compression and other maneuvers. COMPARISON: None available. FINDINGS: RIGHT COMMON FEMORAL VEIN: Negative. RIGHT FEMORAL VEIN: Negative. RIGHT POPLITEAL VEIN: Negative. RIGHT CALF VEINS: Negative. LEFT COMMON FEMORAL VEIN: Negative. LEFT FEMORAL VEIN: Negative. LEFT POPLITEAL VEIN: Negative. LEFT CALF VEINS: Negative. ADDITIONAL FINDINGS: None. IMPRESSION: 1. No sonographic evidence for DVT in either lower extremity. - Medical Decision Making 66-year-old female presents to the hospital with shortness of breath and bilateral lower extremity edema and intermittent chest pain. ED work-up suggestive of acute CHF exacerbation. Patient treated with Nitropaste, Lasix, and aspirin. Bilateral lower extremity Dopplers ordered to rule out DVT and pending at disposition. No signs of ST elevation VT or elevated troponin in the ED. patient had a cardiac cath in December 2020 with minimum CAD (10% LAD clot).l patient will be admitted to the hospitalist service. [place] heart consult order placed Critical Care Time: No Critical care attestation.: If time is entered above; I have spent that time in minutes in the direct care of this critically ill patient, excluding procedure time. ED Disposition Clinical Impression: Acute exacerbation of CHF (congestive heart failure), Chest pain, Hypertensive emergency Disposition: ADMITTED INPATIENT Is pt being admited?: Yes Condition: Stable Time of Disposition: 07:16 (Dr mcnulty/hospitalist)
[2022-04-17] MEDS ORDERED: ASPIRIN 325 MG TAB PO ONE (07:18)
[2022-04-17] MEDS ORDERED: DEXTROSE 50% IN WATER (25GM) 50 ML SYRINGE IV PRN (08:00)
[2022-04-17] MEDS ORDERED: NALOXONE 0.4 MG/1 ML INJ IV PRN (08:00)
[2022-04-17] MEDS ORDERED: oxyCODONE /ACETAMINOPHEN 5-325MG TAB PO PRN (08:00)
[2022-04-17] MEDS ORDERED: MORPHINE 4 MG/1 ML INJ IV PRN (08:00)
[2022-04-17] MEDS ORDERED: ACETAMINOPHEN 325 MG TAB PO PRN (08:00)
[2022-04-17] MEDS ORDERED: ONDANSETRON 4 MG/2 ML INJ IV PRN (08:00)
--- NOTE | 2022-04-17 08:41 | History and Physical Report ---
History of Present Illness Date of examination: 04/17/22 Medications and Allergies Allergies Allergy/AdvReac Type Severity Reaction Status Date / Time No Known Allergies Allergy Unverified 12/25/20 11:08 Home Medications Medication Instructions Recorded Confirmed Last Taken Type Aspirin EC [Halfprin EC] 81 mg PO QDAY #30 tablet 01/02/21 Unknown Rx AtorvaSTATin [Lipitor] 80 mg PO QHS #30 tablet 01/02/21 Unknown Rx Clopidogrel [Plavix] 75 mg PO QDAY #30 tablet 01/02/21 Unknown Rx Furosemide [Lasix TAB] 20 mg PO QDAY #30 tablet 01/02/21 Unknown Rx Gabapentin 300 mg PO BID #60 cap 01/02/21 Unknown Rx Glimepiride [Amaryl] 2 mg PO QDDIAB #30 tablet 01/02/21 Unknown Rx Metoprolol Xl [Metoprolol 50 mg PO QDAY #30 tablet 01/02/21 Unknown Rx SUCCINATE ER TAB] amLODIPine 10 mg PO QDAY #30 tablet 01/02/21 Unknown Rx lisinopriL [Zestril TAB] 10 mg PO QDAY #30 tablet 01/02/21 Unknown Rx traMADoL [Ultram 50 MG tab] 50 mg PO Q6H PRN #30 tablet 01/02/21 Unknown Rx Active Meds: Active Medications Acetaminophen (Acetaminophen 325 Mg Tab) 650 mg PO Q4H PRN PRN Reason: Pain MILD(1-3)/Fever >100.5/AKSEW Aspirin (Aspirin Ec 81 Mg Tab) 81 mg PO QDAY ALEXIS Atorvastatin Calcium (Atorvastatin 40 Mg Tab) 80 mg PO QHS ALEXIS Dextrose (Dextrose 50% In Water (25gm) 50 Ml Syringe) 50 ml IV Q30MIN PRN; Protocol PRN Reason: Hypoglycemia Furosemide (Furosemide 20 Mg/2 Ml Inj) 20 mg IV 0600,1800 ALEXIS Gabapentin (Gabapentin 300 Mg Cap) 300 mg PO BID ALEXIS Insulin Human Regular (Insulin Regular, Human 100 Units/1 Ml) 0 units SUB-Q ACHS ALEXIS; Protocol Morphine Sulfate (Morphine 4 Mg/1 Ml Inj) 4 mg IV Q4H PRN PRN Reason: Pain , Severe (7-10) Naloxone HCl (Naloxone 0.4 Mg/1 Ml Inj) 0.1 mg IV Q2MIN PRN PRN Reason: Res Rate </= 8 or 02 SAT < 92% Ondansetron HCl (Ondansetron 4 Mg/2 Ml Inj) 4 mg IV Q8H PRN PRN Reason: Nausea And Vomiting Oxycodone/Acetaminophen (Oxycodone /Acetaminophen 5-325mg Tab) 1 tab PO Q6H PRN PRN Reason: Pain, Moderate (4-6) Sodium Chloride (Sodium Chloride 0.9% 10 Ml Flush Syringe) 10 ml IV BID ALEXIS Sodium Chloride (Sodium Chloride 0.9% 10 Ml Flush Syringe) 10 ml IV PRN PRN PRN Reason: LINE FLUSH Stop: 04/22/22 07:16 Exam - Physical Exam Narrative exam: GENERAL: Well-developed well-nourished. Sitting on the side of the bed in no acute distress. HEENT: Normocephalic. Atraumatic. NECK: Supple. CHEST/LUNGS: CTAB on room air HEART/CARDIOVASCULAR: RRR. No murmur, rubs or gallops appreciated. ABDOMEN: +BS. NT/ND. SKIN: No rashes noted. NEURO: No focal motor deficit. Follows all commands and is ambulatory. MUSCULOSKELETAL: No joint effusion EXTREMITIES: No cyanosis, cubbing or edema. PSYCH: Cooperative. - Constitutional Vitals: Temp Pulse Resp BP Pulse Ox 98.5 F 91 H 13 191/107 99 04/16/22 19:51 04/17/22 06:45 04/17/22 06:45 04/17/22 06:45 04/17/22 06:45 HEART Score - HEART Score Troponin: Troponin T 0.013 ng/mL (0.00-0.029) 04/16/22 20:48 Results - Labs CBC & Chem 7: 04/16/22 20:48 04/16/22 20:48 Labs: Laboratory Last Values WBC 6.2 K/mm3 (4.5-11.0) 04/16/22 20:48 RBC 4.81 M/mm3 (3.65-5.03) 04/16/22 20:48 Hgb 14.0 gm/dl (10.1-14.3) 04/16/22 20:48 Hct 44.7 % (30.3-42.9) H 04/16/22 20:48 MCV 93 fl (79-97) 04/16/22 20:48 MCH 29 pg (28-32) 04/16/22 20:48 MCHC 31 % (30-34) 04/16/22 20:48 RDW 14.1 % (13.2-15.2) 04/16/22 20:48 Plt Count 258 K/mm3 (140-440) 04/16/22 20:48 Lymph % (Auto) 23.8 % (13.4-35.0) 04/16/22 20:48 [place] % (Auto) 8.9 % (0.0-7.3) H 04/16/22 20:48 Eos % (Auto) 3.7 % (0.0-4.3) 04/16/22 20:48 Baso % (Auto) 2.6 % (0.0-1.8) H 04/16/22 20:48 Lymph # (Auto) 1.5 K/mm3 (1.2-5.4) 04/16/22 20:48 [place] # (Auto) 0.5 K/mm3 (0.0-0.8) 04/16/22 20:48 Eos # (Auto) 0.2 K/mm3 (0.0-0.4) 04/16/22 20:48 Baso # (Auto) 0.2 K/mm3 (0.0-0.1) H 04/16/22 20:48 Seg Neutrophils % 61.0 % (40.0-70.0) 04/16/22 20:48 Seg Neutrophils # 3.7 K/mm3 (1.8-7.7) 04/16/22 20:48 Sodium 138 mmol/L (137-145) 04/16/22 20:48 Potassium 3.5 mmol/L (3.6-5.0) L 04/16/22 20:48 Chloride 100.0 mmol/L (98-107) 04/16/22 20:48 Carbon Dioxide 30 mmol/L (22-30) 04/16/22 20:48 Anion Gap 12 mmol/L 04/16/22 20:48 BUN 18 mg/dL (7-17) H 04/16/22 20:48 Creatinine 1.0 mg/dL (0.6-1.2) 04/16/22 20:48 Estimated GFR 56 ml/min 04/16/22 20:48 BUN/Creatinine Ratio 18 % 04/16/22 20:48 Glucose 277 mg/dL (65-100) H 04/16/22 20:48 Calcium 8.5 mg/dL (8.4-10.2) 04/16/22 20:48 Troponin T 0.013 ng/mL (0.00-0.029) 04/16/22 20:48 NT-Pro-B Natriuret Pep 3952 pg/mL (0-900) H 04/17/22 07:15 Assessment and Plan Assessment and plan: #Acute on chronic systolic heart failure -NTproBNP 3952 -patient has history of nonischemic cardiomyopathy -TTE ordered for evaluation of EF -Lasix 40 IV twice daily -fluid restriction, strict I/O's, daily weights -will restart lisinopril at home dose; metoprolol added by Cardiology -Cardiology consulted, assistance appreciated #Hypertension -patient only takes lisinopril 20mg qday at home -initial BP 191/107; improved after diuresis -continue lisinopril #NSTEMI -troponin 0.013 x2 -likely secondary to CHF exacerbation #Type 2 diabetes with hyperglycemia and neuropathy -Patient takes glimepiride 4 mg twice daily -We will start moderate intensity sliding scale with Accu-Cheks while inpatient -Resume gabapentin at home dose -Goal glucose [id number] while inpatient #Recent history of TIA #Hyperlipidemia -Patient reports being hospitalized for TIA December 2021 -We will restart aspirin and statin at home dose #Obesity #Weight loss counseling #Exercise counseling - Counseled patient on the importance of weight loss, incorporating exercise, and dietary changes (lean meats, fresh fruits and vegetables, and water intake). Patient expresses understanding. - Time: +15 min #Advanced care planning -Disease education conducted, care plan discussed, diagnoses discussed, prognosis discussed, and patient acknowledges understanding with care plan -Time: +30 min Advance Directives: No VTE prophylaxis?: Chemical Plan of care discussed with patient/family: Yes
--- NOTE | 2022-04-17 08:55 | Vascular Lab Report ---
DUPLEX DOPPLER LOWER EXTREMITY VEINS, BILATERAL INDICATION / CLINICAL INFORMATION: b/l leg edema. TECHNIQUE: Duplex doppler imaging was performed through the veins of both lower extremities using venous inna bull and other maneuvers. COMPARISON: None available. FINDINGS: RIGHT COMMON FEMORAL VEIN: Negative. RIGHT FEMORAL VEIN: Negative. RIGHT POPLITEAL VEIN: Negative. RIGHT CALF VEINS: Negative. LEFT COMMON FEMORAL VEIN: Negative. LEFT FEMORAL VEIN: Negative. LEFT POPLITEAL VEIN: Negative. LEFT CALF VEINS: Negative. ADDITIONAL FINDINGS: None. IMPRESSION: 1. No sonographic evidence for DVT in either lower extremity. Signer Name: Hiro Castro MD Signed: 04/17/2022 8:51 AM Workstation Name: [id number]
[2022-04-17] MEDS: ASPIRIN EC 81 MG TAB PO SCH (10:14)
[2022-04-17] MEDS: GABAPENTIN 300 MG CAP PO SCH ×2 (10:14→23:12)
[2022-04-17] MEDS: INSULIN REGULAR, HUMAN 100 UNITS/1 ML SUB-Q SCH ×3 (10:16→17:01)
[2022-04-17] MEDS ORDERED: ASPIRIN 325 MG TAB PO NR (11:00)
[2022-04-17] MEDS ORDERED: NITROGLYCERIN 2% OINT 1 GM TP NR (11:00)
--- NOTE | 2022-04-17 12:54 | Consultation ---
History of Present Illness Consult date: 04/17/22 Requesting physician: JAY JAY SIMMS Consult reason: congestive heart failure History of present illness: Patient is a 66-year-old female with a past medical history of an NICMP EF 15 to 20%, CAD, history of CVA, diabetes, hypertension, and hyperlipidemia who presents to the ED with a complaint of dyspnea on exertion x4 to 5 weeks. Patient reports that this time. She has had orthopnea, productive cough, and bilateral lower extremity edema. She also states she had some intermittent chest pressure that she described as heaviness. She also reports constipation. Patient reports that she is compliant with her medications, fluid restriction, and diet restrictions. In the ED patient was found to have elevated BNP and blood pressure 190/100s. She denies chest pain, nausea, vomiting, diaphoresis, palpitations. Patient reports she was given IV Lasix with improvement in her symptoms. Patient follows with Dr. Lares of our practice however patient has not been seen since April 2021. Unclear how compliant patient is with her medications. Cardiology is consulted for CHF. Past History Past Medical History: CAD, diabetes, heart failure, hypertension, hyperlipidemia Past Surgical History: No surgical history Family history: cancer Medications and Allergies Allergies Allergy/AdvReac Type Severity Reaction Status Date / Time No Known Allergies Allergy Unverified 12/25/20 11:08 Home Medications Medication Instructions Recorded Confirmed Last Taken Type Aspirin EC [Halfprin EC] 81 mg PO QDAY #30 tablet 01/02/21 Unknown Rx AtorvaSTATin [Lipitor] 80 mg PO QHS #30 tablet 01/02/21 Unknown Rx Clopidogrel [Plavix] 75 mg PO QDAY #30 tablet 01/02/21 Unknown Rx Furosemide [Lasix TAB] 20 mg PO QDAY #30 tablet 01/02/21 Unknown Rx Gabapentin 300 mg PO BID #60 cap 01/02/21 Unknown Rx Glimepiride [Amaryl] 2 mg PO QDDIAB #30 tablet 01/02/21 Unknown Rx Metoprolol Xl [Metoprolol 50 mg PO QDAY #30 tablet 01/02/21 Unknown Rx SUCCINATE ER TAB] amLODIPine 10 mg PO QDAY #30 tablet 01/02/21 Unknown Rx lisinopriL [Zestril TAB] 10 mg PO QDAY #30 tablet 01/02/21 Unknown Rx traMADoL [Ultram 50 MG tab] 50 mg PO Q6H PRN #30 tablet 01/02/21 Unknown Rx Active Meds: Active Medications Acetaminophen (Acetaminophen 325 Mg Tab) 650 mg PO Q4H PRN PRN Reason: Pain MILD(1-3)/Fever >100.5/ASKEW Aspirin (Aspirin Ec 81 Mg Tab) 81 mg PO QDAY [facility] Last Admin: 04/17/22 10:14 Dose: 81 mg Aspirin (Aspirin 325 Mg Tab) 325 mg PO ONCE NR Stop: 04/17/22 14:00 Atorvastatin Calcium (Atorvastatin 40 Mg Tab) 80 mg PO QHS [facility] Dextrose (Dextrose 50% In Water (25gm) 50 Ml Syringe) 50 ml IV Q30MIN PRN; Protocol PRN Reason: Hypoglycemia Furosemide (Furosemide 40 Mg/4 Ml Inj) 40 mg IV 0600,1800 [facility] Gabapentin (Gabapentin 300 Mg Cap) 300 mg PO BID [facility] Last Admin: 04/17/22 10:14 Dose: 300 mg Heparin Sodium (Porcine) (Heparin 5,000 Unit/1 Ml Vial) 5,000 unit SUB-Q Q8HR [facility] Insulin Human Regular (Insulin Regular, Human 100 Units/1 Ml) 0 units SUB-Q ACHS [facility]; Protocol Last Admin: 04/17/22 11:59 Dose: 2 units Lisinopril (Lisinopril 20 Mg Tab) 20 mg PO QDAY [facility] Metoprolol Tartrate (Metoprolol Tartrate 25 Mg Tab) 25 mg PO BID [facility] Morphine Sulfate (Morphine 4 Mg/1 Ml Inj) 4 mg IV Q4H PRN PRN Reason: Pain , Severe (7-10) Naloxone HCl (Naloxone 0.4 Mg/1 Ml Inj) 0.1 mg IV Q2MIN PRN PRN Reason: Res Rate </= 8 or 02 SAT < 92% Nitroglycerin (Nitroglycerin 2% Oint 1 Gm) 1 inch TP ONCE NR; Protocol Stop: 04/17/22 16:00 Last Admin: 04/17/22 10:29 Dose: 1 inch Ondansetron HCl (Ondansetron 4 Mg/2 Ml Inj) 4 mg IV Q8H PRN PRN Reason: Nausea And Vomiting Oxycodone/Acetaminophen (Oxycodone /Acetaminophen 5-325mg Tab) 1 tab PO Q6H PRN PRN Reason: Pain, Moderate (4-6) Sodium Chloride (Sodium Chloride 0.9% 10 Ml Flush Syringe) 10 ml IV BID [facility] Last Admin: 04/17/22 10:16 Dose: 10 ml Sodium Chloride (Sodium Chloride 0.9% 10 Ml Flush Syringe) 10 ml IV PRN PRN PRN Reason: LINE FLUSH Stop: 04/22/22 07:16 Review of Systems Constitutional: no weight loss, no weight gain, no fever, no chills Ears, nose, mouth and throat: no sinus pressure, no sinus pain Cardiovascular: orthopnea, edema, shortness of breath, dyspnea on exertion, high blood pressure, leg edema Respiratory: cough with sputum, shortness of breath, dyspnea on exertion Gastrointestinal: no abdominal pain, no nausea, no vomiting Musculoskeletal: no neck stiffness, no neck pain, no shooting arm pain Integumentary: no rash, no pruritis, no redness Neurological: no head injury, no transient paralysis, no paralysis Psychiatric: no anxiety, no memory loss Endocrine: no cold intolerance, no heat intolerance Hematologic/Lymphatic: no easy bruising, no easy bleeding Physical Examination Vital Signs Temp Pulse Resp BP Pulse Ox 98.5 F 99 H 20 184/115 95 04/16/22 19:51 04/16/22 19:51 04/16/22 19:51 04/16/22 19:51 04/16/22 19:51 General appearance: no acute distress Neck: Positive: trachea midline Cardiac: Positive: Reg Rate and Rhythm Lungs: Positive: Decreased Breath Sounds Neuro: Positive: Grossly Intact Abdomen: Positive: Soft Skin: Negative: Rash, Suspicious Lesions, Ulceration Extremities: Present: upper extr. pulses, +2 Edema, Cool Results 04/16/22 20:48 04/16/22 20:48 CBC 04/16/22 Range/Units 20:48 WBC 6.2 (4.5-11.0) K/mm3 RBC 4.81 (3.65-5.03) M/mm3 Hgb 14.0 (10.1-14.3) gm/dl Hct 44.7 H (30.3-42.9) % Plt Count 258 (140-440) K/mm3 Lymph # (Auto) 1.5 (1.2-5.4) K/mm3 [place] # (Auto) 0.5 (0.0-0.8) K/mm3 Eos # (Auto) 0.2 (0.0-0.4) K/mm3 Baso # (Auto) 0.2 H (0.0-0.1) K/mm3 Comprehensive Metabolic Panel 04/16/22 Range/Units 20:48 Sodium 138 (137-145) mmol/L Potassium 3.5 L (3.6-5.0) mmol/L Chloride 100.0 (98-107) mmol/L Carbon Dioxide 30 (22-30) mmol/L BUN 18 H (7-17) mg/dL Creatinine 1.0 (0.6-1.2) mg/dL Glucose 277 H (65-100) mg/dL Calcium 8.5 (8.4-10.2) mg/dL - Imaging and Cardiology Echo: pending, report reviewed Cardiac cath: report reviewed EKG interpretations - Telemetry EKG Rhythm: Sinus Rhythm - EKG Sinus rhythms and dysrhythmias: sinus rhythm Ventricular dysrhythmias: ventricular premature com Assessment and Plan Patient is a 66-year-old female with a past medical history of an NICMP EF 15 to 20%, CAD, history of CVA, diabetes, hypertension, and hyperlipidemia who presents to the ED with a complaint of dyspnea on exertion x4 to 5 weeks. Acute on chronic HFrEF Minimal CAD Hypertension Diabetes Obesity History of CVA Cardiac catheterization 12/31/2020- Markedly dilated left ventricle with elevated end diastblic pressure and severely depressed left ventricular function in the range of 15-20%.2. lt main patent, lcx patent lad patent and rca patent 3. Very minimal coronary disease with 10% mid left anterior descending lesion. Otherwise, rest of the coronaries without significant disease Echocardiogram 12/25/2020- Left Ventricle The Left Ventricle is mildly dilated. Mild Concentric left ventricular hypertrophy. Left ventricular ejection fraction is severely decreased. LVEF is 15-20%. Atria : Saline bubble contrast intravenous injection does not demonstrate PFO. Left Ventricle : Tissue Doppler imaging reveals moderate left ventricular diastolic dysfunction. Left Ventricular End Diastolic Pressure is moderately elevated Outpatient medications Per prior documentation: Amlodipine 10 mg p.o. daily, aspirin, atorvastatin 40 mg p.o. nightly, clopidogrel, furosemide 20 mg p.o. daily, lisinopril 20 mg p.o. twice daily, metoprolol XL 50 mg p.o. daily Plan: EKG shows sinus rhythm 98 with PVC and nonspecific IVCD. No acute ischemic changes troponins negative x2. Patient denies any complaint of chest pain. AMI ruled out BNP noted to be elevated patient has bilateral lower extremity pitting edema Will increase to Lasix 40 mg IV twice daily for diuresis Strict I&O's, daily weights, repeat BMP in the a.m. with close monitoring of renal function Echo pending Patient reports currently only taking aspirin, Lasix, lisinopril as an outpatient Agree with aspirin and lisinopril 20 mg p.o. daily Will initiate metoprolol 25 mg p.o. twice daily. Will titrate as needed Patient currently on atorvastatin 80 mg p.o. nightly Plan of care discussed with patient who verbalized understanding and acknowledgment Patient seen in conjunction with Dr. Lares who agrees with plan of care - Patient Problems (1) Acute on chronic HFrEF (heart failure with reduced ejection fraction) Current Visit: Yes Status: Acute (2) NSTEMI (non-ST elevated myocardial infarction) Current Visit: No Status: Acute (3) DM2 (diabetes mellitus, type 2) Current Visit: No Status: Chronic (4) HTN (hypertension) Current Visit: No Status: Chronic Qualifiers: Hypertension type: essential hypertension Qualified Code(s): I10 - Essential (primary) hypertension (5) HLD (hyperlipidemia) Current Visit: No Status: Chronic Qualifiers: Hyperlipidemia type: mixed hyperlipidemia Qualified Code(s): E78.2 - Mixed hyperlipidemia (6) NICM (nonischemic cardiomyopathy) Current Visit: No Status: Chronic (7) Mild CAD Current Visit: No Status: Chronic (8) Hypertensive emergency Current Visit: Yes Status: Acute
[2022-04-17] MEDS ORDERED: LISINOPRIL 20 MG TAB PO SCH (13:00)
[2022-04-17] MEDS: METOPROLOL TARTRATE 25 MG TAB PO SCH ×2 (13:24→23:12)
[2022-04-17] MEDS: HEPARIN 5,000 UNIT/1 ML VIAL SUB-Q SCH (14:40)
[2022-04-17] MEDS ORDERED: FUROSEMIDE 20 MG/2 ML INJ IV SCH ×2 (18:00)
[2022-04-17] MEDS: FUROSEMIDE 40 MG/4 ML INJ IV SCH (18:06)
[2022-04-18] MEDS: INSULIN REGULAR, HUMAN 100 UNITS/1 ML SUB-Q SCH ×5 (00:09→21:27)
[2022-04-18 05:52] LABS: Calcium 8.9 mg/dL (8.4-10.2)
[2022-04-18 06:01] LABS: Hematocrit 43.4 % (30.3-42.9); Hemoglobin 13.7 gm/dl (10.1-14.3); Mean Corpuscular HGB Conc 32 % (30-34); Mean Corpuscular Volume 92 fl (79-97); Platelet Count 285 K/mm3 (140-440); Red Blood Count 4.71 M/mm3 (3.65-5.03); Red Cell Distribution Width 14.4 % (13.2-15.2)
[2022-04-18 06:56] LABS: Total Cells Counted 100
[2022-04-18 06:57] LABS: Platelet Estimate Consistent w Auto
[2022-04-18] MEDS: FUROSEMIDE 40 MG/4 ML INJ IV SCH ×2 (09:28→18:14)
[2022-04-18] MEDS ORDERED: DAPAGLIFLOZIN (NF) PROPANEDIOL 5 MG TAB PO SCH (10:00)
[2022-04-18] MEDS: ENOXAPARIN 40 MG/0.4 ML INJ SUB-Q SCH (10:12)
[2022-04-18] MEDS: ASPIRIN EC 81 MG TAB PO SCH (10:12)
[2022-04-18] MEDS: GABAPENTIN 300 MG CAP PO SCH ×2 (10:13→21:27)
[2022-04-18] MEDS: METOPROLOL SUCCINATE XL 50 MG TAB PO SCH (10:29)
[2022-04-18] MEDS: SPIRONOLACTONE 25 MG TAB PO SCH (10:29)
--- NOTE | 2022-04-18 10:57 | Progress Note ---
Assessment and Plan Patient is a 66-year-old female with a past medical history of an NICMP EF 15 to 20%, CAD, history of CVA, diabetes, hypertension, and hyperlipidemia who presents to the ED with a complaint of dyspnea on exertion x4 to 5 weeks. Acute on chronic HFrEF Minimal CAD Hypertension Diabetes Obesity History of CVA Echo 04/17/2022-EF 10 to 15%. Left ventricle is moderately dilated. Right ventricle systolic function is mildly reduced. Mild mitral regurgitation. Moderate tricuspid regurgitation. Trace pulmonic regurgitation. Trace pericardial effusion. Cardiac catheterization 12/31/2020- Markedly dilated left ventricle with elevated end diastblic pressure and severely depressed left ventricular function in the range of 15-20%.2. lt main patent, lcx patent lad patent and rca patent 3. Very minimal coronary disease with 10% mid left anterior descending lesion. Otherwise, rest of the coronaries without significant disease Echocardiogram 12/25/2020- Left Ventricle The Left Ventricle is mildly dilated. Mild Concentric left ventricular hypertrophy. Left ventricular ejection fraction is severely decreased. LVEF is 15-20%. Atria : Saline bubble contrast intravenous injection does not demonstrate PFO. Left Ventricle : Tissue Doppler imaging reveals moderate left ventricular diastolic dysfunction. Left Ventricular End Diastolic Pressure is moderately elevated Outpatient medications Per prior documentation: Amlodipine 10 mg p.o. daily, aspirin, atorvastatin 40 mg p.o. nightly, clopidogrel, furosemide 20 mg p.o. daily, lisinopril 20 mg p.o. twice daily, metoprolol XL 50 mg p.o. daily Plan: Will stop lisinopril today and convert to Entresto 49 - 51 mg p.o. twice daily tomorrow Initiate Farxiga 5 mg p.o. daily and Aldactone 25 mg p.o. daily Convert to metoprolol XL 50 mg p.o. daily BNP noted to be elevated patient has bilateral lower extremity pitting edema Continue Lasix 40 mg IV twice daily for diuresis Strict I&O's, daily weights, repeat BMP in the a.m. with close monitoring of renal function Echo results noted above Patient currently on atorvastatin 80 mg p.o. nightly Plan of care discussed with patient who verbalized understanding and acknowledgment Patient seen in conjunction with Dr. Lares who agrees with plan of care - Patient Problems (1) Acute on chronic HFrEF (heart failure with reduced ejection fraction) Current Visit: Yes Status: Acute (2) NSTEMI (non-ST elevated myocardial infarction) Current Visit: No Status: Acute (3) DM2 (diabetes mellitus, type 2) Current Visit: No Status: Chronic (4) HTN (hypertension) Current Visit: No Status: Chronic Qualifiers: Hypertension type: essential hypertension Qualified Code(s): I10 - Essential (primary) hypertension (5) HLD (hyperlipidemia) Current Visit: No Status: Chronic Qualifiers: Hyperlipidemia type: mixed hyperlipidemia Qualified Code(s): E78.2 - Mixed hyperlipidemia (6) NICM (nonischemic cardiomyopathy) Current Visit: No Status: Chronic (7) Mild CAD Current Visit: No Status: Chronic (8) Hypertensive emergency Current Visit: Yes Status: Acute Subjective Date of service: 04/18/22 Principal diagnosis: Acute on chronic HFrEF, hypertensive urgency Interval history: Patient resting in bed in no acute distress. Patient reports feeling significant Currently sinus 70s, Objective Vital Signs Pulse Resp BP BP Pulse Ox 04/18/22 09:42 96 H 14 159/101 99 04/18/22 06:46 66 17 153/94 82 L 04/18/22 06:30 66 17 146/95 79 L 04/18/22 06:16 65 16 132/70 79 L 04/18/22 06:00 62 16 134/73 85 04/18/22 05:46 62 15 134/73 84 04/18/22 05:30 62 15 86 04/18/22 05:15 64 12 142/80 96 04/18/22 05:01 63 15 142/80 90 04/18/22 04:45 63 16 142/80 93 04/18/22 04:31 67 20 139/74 83 L 04/18/22 04:15 63 19 134/81 94 04/18/22 04:01 64 14 148/90 95 04/18/22 03:45 63 13 148/90 95 04/18/22 03:31 63 17 145/87 95 04/18/22 03:15 63 17 140/87 96 04/18/22 03:01 64 19 141/89 93 04/18/22 02:45 64 16 141/89 95 04/18/22 02:31 64 12 141/80 93 04/18/22 02:15 62 17 138/81 86 04/18/22 02:01 148/85 84 08/23/22 01:45 148/85 82 L 04/18/22 01:31 138/80 87 04/18/22 01:15 135/81 89 04/18/22 01:01 137/80 88 04/18/22 00:45 137/80 89 04/18/22 00:31 159/103 91 04/18/22 00:15 159/96 84 04/18/22 00:01 159/103 83 L 04/17/22 23:45 159/103 80 L 04/17/22 23:31 137/84 87 04/17/22 23:15 134/68 89 04/17/22 23:12 71 134/68 04/17/22 23:01 144/91 84 04/17/22 22:45 144/91 90 04/17/22 22:36 144/91 86 04/17/22 18:45 71 21 144/91 98 04/17/22 18:31 70 25 H 144/91 98 04/17/22 18:15 70 11 L 144/91 98 04/17/22 18:01 72 29 H 142/93 92 04/17/22 17:45 71 17 142/91 91 04/17/22 17:31 70 18 142/93 91 04/17/22 17:15 69 19 142/93 93 04/17/22 17:09 71 16 140/92 95 04/17/22 17:01 70 18 141/98 95 04/17/22 16:45 71 24 141/98 94 04/17/22 16:31 73 17 141/98 93 04/17/22 16:15 71 18 141/98 93 04/17/22 16:01 70 14 134/82 97 04/17/22 15:45 71 11 L 145/95 97 04/17/22 15:31 72 13 134/82 97 04/17/22 15:21 74 13 134/82 100 04/17/22 15:15 73 18 145/95 04/17/22 15:00 145/95 89 04/17/22 13:28 87 14 151/103 100 04/17/22 13:24 87 151/103 04/17/22 11:52 91 H 12 151/94 100 - Physical Examination General: No Apparent Distress HEENT: Positive: PERRL, Normocephaly Neck: Positive: trachea midline Cardiac: Positive: Reg Rate and Rhythm Lungs: Positive: Normal Breath Sounds Neuro: Positive: Grossly Intact Abdomen: Positive: Soft Skin: Negative: Rash, Suspicious Lesions, Ulceration Extremities: Present: upper extr. pulses, +1 Edema, Cool - Labs and Meds CBC 04/18/22 Range/Units 04:53 WBC 5.9 (4.5-11.0) K/mm3 RBC 4.71 (3.65-5.03) M/mm3 Hgb 13.7 (10.1-14.3) gm/dl Hct 43.4 H (30.3-42.9) % Plt Count 285 (140-440) K/mm3 Comprehensive Metabolic Panel 04/18/22 Range/Units 04:53 Sodium 142 (137-145) mmol/L Potassium 3.7 (3.6-5.0) mmol/L Chloride 98.2 (98-107) mmol/L Carbon Dioxide 33 H (22-30) mmol/L BUN 19 H (7-17) mg/dL Creatinine 1.1 (0.6-1.2) mg/dL Glucose 113 H (65-100) mg/dL Calcium 8.9 (8.4-10.2) mg/dL - Imaging and Cardiology Echo: report reviewed Cardiac cath: report reviewed - Telemetry EKG Rhythm: Sinus Rhythm - EKG Sinus rhythms and dysrhythmias: sinus rhythm Ventricular dysrhythmias: ventricular premature com
--- NOTE | 2022-04-18 13:57 | Electrocardiograph Report ---
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
--- NOTE | 2022-04-18 14:54 | Progress Note ---
Assessment and Plan Assessment and plan: #Acute on chronic systolic heart failure -NTproBNP 3952 -patient has history of nonischemic cardiomyopathy -TTE (04/17/2022) revealing EF 10-15% with moderately dilated LV, mildly reduced RV systolic function, mild mitral regurgitation, moderate tricuspid regurgitation, trace pulmonic regurgitation, trace pericardial effusion -Continue Lasix 40 IV twice daily. Starting Farxiga 5mg daily, aldactorone 25mg daily, metroprolol succinate 50mg daily, and starting Entresto 49-51mg BID tomorrow. 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 Patient expresses understanding. - Time: +15 min #Advanced care planning -Disease education conducted, care plan discussed, diagnoses discussed, prognosis discussed, and patient acknowledges understanding with care plan -Time: +30 min Disposition Plan: Continue medical management Total Time Spent with Patient (Minutes): 45 min History Interval history: No acute events overnight. Hospitalist Physical - Constitutional Vitals: Temp Pulse Resp BP Pulse Ox 98.5 F 96 H 14 159/101 98 04/16/22 19:51 04/18/22 09:42 04/18/22 09:42 04/18/22 09:42 04/18/22 13:21 General appearance: Present: no acute distress, well-nourished, obese - EENT Eyes: Present: PERRL, EOM intact ENT: hearing intact, clear oral mucosa, dentition normal - Neck Neck: Present: supple, normal ROM - Respiratory Respiratory effort: normal Respiratory: bilateral: CTA - Cardiovascular Rhythm: regular Heart Sounds: Present: S1 & S2 - Extremities Extremities: no ischemia, pulses intact, pulses symmetrical, normal temperature, normal color Extremity abnormal: edema (1+ pitting edema bilateral lower extremities) Peripheral Pulses: within normal limits - Abdominal General gastrointestinal: soft, non-tender, non-distended, normal bowel sounds - Integumentary Integumentary: Present: clear, warm, dry - Psychiatric Psychiatric: appropriate mood/affect, memory intact, cooperative - Neurologic Neurologic: CNII-XII intact, moves all extremities - Allied Health Allied health notes reviewed: nursing HEART Score - HEART Score Troponin: Troponin T 0.013 ng/mL (0.00-0.029) 04/17/22 07:15 Results - Labs CBC & Chem 7: 04/18/22 04:53 04/18/22 04:53 Labs: Laboratory Last Values WBC 5.9 K/mm3 (4.5-11.0) 04/18/22 04:53 RBC 4.71 M/mm3 (3.65-5.03) 04/18/22 04:53 Hgb 13.7 gm/dl (10.1-14.3) 04/18/22 04:53 Hct 43.4 % (30.3-42.9) H 04/18/22 04:53 MCV 92 fl (79-97) 04/18/22 04:53 MCH 29 pg (28-32) 04/18/22 04:53 MCHC 32 % (30-34) 04/18/22 04:53 RDW 14.4 % (13.2-15.2) 04/18/22 04:53 Plt Count 285 K/mm3 (140-440) 04/18/22 04:53 Lymph % (Auto) 23.8 % (13.4-35.0) 04/16/22 20:48 Baxter % (Auto) 8.9 % (0.0-7.3) H 04/16/22 20:48 Eos % (Auto) 3.7 % (0.0-4.3) 04/16/22 20:48 Baso % (Auto) Dance Master 04/18/22 04:53 Lymph # (Auto) 1.5 K/mm3 (1.2-5.4) 04/16/22 20:48 Baxter # (Auto) 0.5 K/mm3 (0.0-0.8) 04/16/22 20:48 Eos # (Auto) 0.2 K/mm3 (0.0-0.4) 04/16/22 20:48 Baso # (Auto) 0.2 K/mm3 (0.0-0.1) H 04/16/22 20:48 Add Manual Diff Complete 04/18/22 04:53 Total Counted 100 04/18/22 04:53 Seg Neutrophils % 61.0 % (40.0-70.0) 04/16/22 20:48 Seg Neuts % (Manual) 68.0 % (40.0-70.0) 04/18/22 04:53 Band Neutrophils % 0 % 04/18/22 04:53 Lymphocytes % (Manual) 21.0 % (13.4-35.0) 04/18/22 04:53 Reactive Lymphs % (Man) 0 % 04/18/22 04:53 Monocytes % (Manual) 9.0 % (0.0-7.3) H 04/18/22 04:53 Eosinophils % (Manual) 1.0 % (0.0-4.3) 04/18/22 04:53 Basophils % (Manual) 1.0 % (0.0-1.8) 04/18/22 04:53 Metamyelocytes % 0 % 04/18/22 04:53 Myelocytes % 0 % 04/18/22 04:53 Promyelocytes % 0 % 04/18/22 04:53 Blast Cells % 0 % 04/18/22 04:53 Nucleated RBC % Not Reportable 04/18/22 04:53 Seg Neutrophils # 3.7 K/mm3 (1.8-7.7) 04/16/22 20:48 Seg Neutrophils # Man 4.0 K/mm3 (1.8-7.7) 04/18/22 04:53 Band Neutrophils # 0.0 K/mm3 04/18/22 04:53 Lymphocytes # (Manual) 1.2 K/mm3 (1.2-5.4) 04/18/22 04:53 Abs React Lymphs (Man) 0.0 K/mm3 04/18/22 04:53 Monocytes # (Manual) 0.5 K/mm3 (0.0-0.8) 04/18/22 04:53 Eosinophils # (Manual) 0.1 K/mm3 (0.0-0.4) 04/18/22 04:53 Basophils # (Manual) 0.1 K/mm3 (0.0-0.1) 04/18/22 04:53 Metamyelocytes # 0.0 K/mm3 04/18/22 04:53 Myelocytes # 0.0 K/mm3 04/18/22 04:53 Promyelocytes # 0.0 K/mm3 04/18/22 04:53 Blast Cells # 0.0 K/mm3 04/18/22 04:53 WBC Morphology Not Reportable 04/18/22 04:53 Hypersegmented Neuts Not Reportable 04/18/22 04:53 Hyposegmented Neuts Not Reportable 04/18/22 04:53 Hypogranular Neuts Not Reportable 04/18/22 04:53 Smudge Cells Not Reportable 04/18/22 04:53 Toxic Granulation Not Reportable 04/18/22 04:53 Toxic Vacuolation Not Reportable 04/18/22 04:53 Dohle Bodies Not Reportable 04/18/22 04:53 Pelger-Huet Anomaly Not Reportable 04/18/22 04:53 Sanket Rods Not Reportable 04/18/22 04:53 Platelet Estimate Consistent w auto 04/18/22 04:53 Clumped Platelets Not Reportable 04/18/22 04:53 Plt Clumps, EDTA Not Reportable 04/18/22 04:53 Large Platelets Not Reportable 04/18/22 04:53 Giant Platelets Not Reportable 04/18/22 04:53 Platelet Satelliting Not Reportable 04/18/22 04:53 Plt Morphology Comment Not Reportable 04/18/22 04:53 RBC Morphology Not Reportable 04/18/22 04:53 Dimorphic RBCs Not Reportable 04/18/22 04:53 Polychromasia Not Reportable 04/18/22 04:53 Hypochromasia Not Reportable 04/18/22 04:53 Poikilocytosis Not Reportable 04/18/22 04:53 Anisocytosis Not Reportable 04/18/22 04:53 Microcytosis Not Reportable 04/18/22 04:53 Macrocytosis Not Reportable 04/18/22 04:53 Spherocytes Not Reportable 04/18/22 04:53 Pappenheimer Bodies Not Reportable 04/18/22 04:53 Sickle Cells Not Reportable 04/18/22 04:53 Target Cells Not Reportable 04/18/22 04:53 Tear Drop Cells Not Reportable 04/18/22 04:53 Ovalocytes Not Reportable 04/18/22 04:53 Helmet Cells Not Reportable 04/18/22 04:53 [place] Bodies Not Reportable 04/18/22 04:53 [place] Bottom Rings Not Reportable 04/18/22 04:53 Elba Cells Not Reportable 04/18/22 04:53 Bite Cells Not Reportable 04/18/22 04:53 Crenated Cell Not Reportable 04/18/22 04:53 Elliptocytes Not Reportable 04/18/22 04:53 Acanthocytes (Spur) Not Reportable 04/18/22 04:53 Rouleaux Not Reportable 04/18/22 04:53 Hemoglobin C Crystals Not Reportable 04/18/22 04:53 Schistocytes Not Reportable 04/18/22 04:53 Malaria parasites Not Reportable 04/18/22 04:53 Yahir Bodies Not Reportable 04/18/22 04:53 Hem Pathologist Commnt No 04/18/22 04:53 Sodium 142 mmol/L (137-145) 04/18/22 04:53 Potassium 3.7 mmol/L (3.6-5.0) 04/18/22 04:53 Chloride 98.2 mmol/L (98-107) 04/18/22 04:53 Carbon Dioxide 33 mmol/L (22-30) H 04/18/22 04:53 Anion Gap 15 mmol/L 04/18/22 04:53 BUN 19 mg/dL (7-17) H 04/18/22 04:53 Creatinine 1.1 mg/dL (0.6-1.2) 04/18/22 04:53 Estimated GFR 50 ml/min 04/18/22 04:53 BUN/Creatinine Ratio 17 % 04/18/22 04:53 Glucose 113 mg/dL (65-100) H 04/18/22 04:53 POC Glucose 199 mg/dL (70-105) H 04/17/22 17:01 Calcium 8.9 mg/dL (8.4-10.2) 04/18/22 04:53 Troponin T 0.013 ng/mL (0.00-0.029) 04/17/22 07:15 NT-Pro-B Natriuret Pep 3952 pg/mL (0-900) H 04/17/22 07:15 Carter/IV: Voiding Method Toilet Active Medications - Current Medications Current Medications: Generic Name Dose Route Start Last Admin Trade Name Freq PRN Reason Stop Dose Admin Acetaminophen 650 mg 04/17/22 08:00 Acetaminophen 325 Mg Tab PO Q4H PRN Pain MILD(1-3)/Fever >100.5/ASKEW Aspirin 81 mg 04/17/22 10:00 04/18/22 10:12 Aspirin Ec 81 Mg Tab PO 81 mg QDAY ALEXIS Administration Atorvastatin Calcium 80 mg 04/17/22 22:00 04/17/22 23:12 Atorvastatin 40 Mg Tab PO 80 mg QHS ALEXIS Administration Dextrose 50 ml 04/17/22 08:00 Dextrose 50% In Water (25gm) 50 Ml Syringe IV Q30MIN PRN Hypoglycemia Protocol Enoxaparin Sodium 40 mg 04/18/22 10:00 04/18/22 10:12 Enoxaparin 40 Mg/0.4 Ml Inj SUB-Q 40 mg DAILY ALEXIS Administration Protocol Furosemide 40 mg 04/17/22 18:00 04/18/22 09:28 Furosemide 40 Mg/4 Ml Inj IV 40 mg 0600,1800 ALEXIS Administration Gabapentin 300 mg 04/17/22 10:00 04/18/22 10:13 Gabapentin 300 Mg Cap PO 300 mg BID ALEXIS Administration Insulin Human Regular 0 units 04/17/22 07:30 04/18/22 13:17 Insulin Regular, Human 100 Units/1 Ml SUB-Q Not Given ACHS ALEXIS Protocol Metoprolol Succinate 50 mg 04/18/22 10:00 04/18/22 10:29 Metoprolol Succinate Xl 50 Mg Tab PO 50 mg QDAY ALEXIS Administration Morphine Sulfate 4 mg 04/17/22 08:00 Morphine 4 Mg/1 Ml Inj IV Q4H PRN Pain , Severe (7-10) Naloxone HCl 0.1 mg 04/17/22 08:00 Naloxone 0.4 Mg/1 Ml Inj IV Q2MIN PRN Res Rate </= 8 or 02 SAT < 92% Ondansetron HCl 4 mg 04/17/22 08:00 Ondansetron 4 Mg/2 Ml Inj IV Q8H PRN Nausea And Vomiting Oxycodone/Acetaminophen 1 tab 04/17/22 08:00 Oxycodone /Acetaminophen 5-325mg Tab PO Q6H PRN Pain, Moderate (4-6) Sacubitril/Valsartan 1 each 04/19/22 10:00 Sacubitril/Valsartan 49-51 Mg Tab PO BID ALEXIS Sodium Chloride 10 ml 04/17/22 10:00 04/18/22 09:36 Sodium Chloride 0.9% 10 Ml Flush Syringe IV 10 ml BID ALEXIS Administration Sodium Chloride 10 ml 04/17/22 07:17 Sodium Chloride 0.9% 10 Ml Flush Syringe IV 04/22/22 07:16 PRN PRN LINE FLUSH Spironolactone 25 mg 04/18/22 10:00 04/18/22 10:29 Spironolactone 25 Mg Tab PO 25 mg QDAY ALEXIS Administration
[2022-04-19] MEDS: FUROSEMIDE 40 MG/4 ML INJ IV SCH (05:06)
[2022-04-19 06:13] LABS: Calcium 8.8 mg/dL (8.4-10.2)
[2022-04-19] MEDS: HEPARIN 5,000 UNIT/1 ML VIAL SUB-Q SCH (07:20)
[2022-04-19] MEDS: INSULIN REGULAR, HUMAN 100 UNITS/1 ML SUB-Q SCH ×2 (09:50→12:05)
[2022-04-19] MEDS ORDERED: SACUBITRIL/VALSARTAN 49-51 MG TAB PO SCH (10:00)
[2022-04-19] MEDS: ASPIRIN EC 81 MG TAB PO SCH (10:42)
[2022-04-19] MEDS: METOPROLOL SUCCINATE XL 50 MG TAB PO SCH (10:42)
[2022-04-19] MEDS: ENOXAPARIN 40 MG/0.4 ML INJ SUB-Q SCH (10:42)
[2022-04-19] MEDS: GABAPENTIN 300 MG CAP PO SCH (10:42)
[2022-04-19] MEDS: SPIRONOLACTONE 25 MG TAB PO SCH (10:45)
--- NOTE | 2022-04-19 12:19 | Progress Note ---
Assessment and Plan Patient is a 66-year-old female with a past medical history of an NICMP EF 15 to 20%, CAD, history of CVA, diabetes, hypertension, and hyperlipidemia who presents to the ED with a complaint of dyspnea on exertion x4 to 5 weeks. Acute on chronic HFrEF Minimal CAD Hypertension Diabetes Obesity History of CVA Echo 04/17/2022-EF 10 to 15%. Left ventricle is moderately dilated. Right ventricle systolic function is mildly reduced. Mild mitral regurgitation. Moderate tricuspid regurgitation. Trace pulmonic regurgitation. Trace pericardial effusion. Cardiac catheterization 12/31/2020- Markedly dilated left ventricle with elevated end diastblic pressure and severely depressed left ventricular function in the range of 15-20%.2. lt main patent, lcx patent lad patent and rca patent 3. Very minimal coronary disease with 10% mid left anterior descending lesion. Otherwise, rest of the coronaries without significant disease Echocardiogram 12/25/2020- Left Ventricle The Left Ventricle is mildly dilated. Mild Concentric left ventricular hypertrophy. Left ventricular ejection fraction is severely decreased. LVEF is 15-20%. Atria : Saline bubble contrast intravenous injection does not demonstrate PFO. Left Ventricle : Tissue Doppler imaging reveals moderate left ventricular diastolic dysfunction. Left Ventricular End Diastolic Pressure is moderately elevated Outpatient medications Per prior documentation: Amlodipine 10 mg p.o. daily, aspirin, atorvastatin 40 mg p.o. nightly, clopidogrel, furosemide 20 mg p.o. daily, lisinopril 20 mg p.o. twice daily, metoprolol XL 50 mg p.o. daily Plan: Start Entresto 49 - 51 mg p.o. twice daily today Continue Farxiga 5 mg p.o. daily, Aldactone 25 mg p.o. daily, and metoprolol XL 50 mg p.o. daily Patient appears euvolemic on exam. Stop Lasix IV and convert to Lasix 40 mg p.o. daily Patient currently on atorvastatin 80 mg p.o. nightly Discussed importance of medication compliance, diet compliance, and fluid restrictions with patient who verbalized understanding and acknowledged Plan of care discussed with patient who verbalized understanding and acknowledgment Cardiac status otherwise stable Patient has BMP scheduled on 04/28/2022 at 10:30 AM in our [place] location Patient has a follow-up appoint with Dr. Garces, [facility] gas plant specialist, on 05/11/2022 at 3:15 PM in our [place] location. Phone #[phone] Patient seen in conjunction with Dr. Lares who agrees with plan of care - Patient Problems (1) Acute on chronic HFrEF (heart failure with reduced ejection fraction) Current Visit: Yes Status: Acute (2) NSTEMI (non-ST elevated myocardial infarction) Current Visit: No Status: Acute (3) DM2 (diabetes mellitus, type 2) Current Visit: No Status: Chronic (4) HTN (hypertension) Current Visit: No Status: Chronic Qualifiers: Hypertension type: essential hypertension (5) HLD (hyperlipidemia) Current Visit: No Status: Chronic Qualifiers: Hyperlipidemia type: mixed hyperlipidemia Qualified Code(s): E78.2 - Mixed hyperlipidemia (6) NICM (nonischemic cardiomyopathy) Current Visit: No Status: Chronic (7) Mild CAD Current Visit: No Status: Chronic (8) Hypertensive emergency Current Visit: Yes Status: Acute Subjective Date of service: 04/19/22 Principal diagnosis: Acute on chronic HFrEF, hypertensive urgency Interval history: Patient resting in bed in no acute distress. Currently sinus 70s, Objective Vital Signs Temp Pulse Resp BP Pulse Ox 04/19/22 08:15 71 94 04/19/22 08:14 97.9 F 18 167/94 04/19/22 03:20 97.4 F L 67 16 148/87 98 04/19/22 02:04 97 04/19/22 01:00 70 04/18/22 23:06 98.2 F 69 14 145/87 97 04/18/22 19:34 97.3 F L 71 16 146/92 97 04/18/22 16:48 97.4 F L 69 18 145/93 95 04/18/22 13:21 98 - Physical Examination General: No Apparent Distress HEENT: Positive: PERRL, Normocephaly Neck: Positive: trachea midline Cardiac: Positive: Reg Rate and Rhythm Lungs: Positive: Normal Breath Sounds Neuro: Positive: Grossly Intact Abdomen: Positive: Soft Skin: Negative: Rash, Suspicious Lesions, Ulceration Extremities: Present: upper extr. pulses, Cool - Labs and Meds Comprehensive Metabolic Panel 04/19/22 Range/Units 05:30 Sodium 140 (137-145) mmol/L Potassium 4.3 (3.6-5.0) mmol/L Chloride 98.2 (98-107) mmol/L Carbon Dioxide 34 H (22-30) mmol/L BUN 25 H (7-17) mg/dL Creatinine 1.5 H (0.6-1.2) mg/dL Glucose 128 H (65-100) mg/dL Calcium 8.8 (8.4-10.2) mg/dL - Imaging and Cardiology Echo: report reviewed Cardiac cath: report reviewed - Telemetry EKG Rhythm: Sinus Rhythm - EKG Sinus rhythms and dysrhythmias: sinus rhythm Ventricular dysrhythmias: ventricular premature com
[2022-04-19 13:04] VITALS: BP 169/94
--- NOTE | 2022-04-19 13:34 | Discharge Summary ---
Providers - Providers Date of Admission: 04/17/22 07:17 Date of discharge: 04/19/22 Attending physician: KEENA HENDRICKS MD 04/17/22 07:18 Consult to Physician [CONS] Urgent Comment: Consulting Provider: ARA LARES Physician Instructions: Reason For Exam: CHF exacerbation, chest pain Primary care physician: NETTIE GONGORA Hospitalization Reason for admission: Acute on chronic systolic heart failure, NSTEMI type II Condition: Stable Pertinent studies: Reviewed. Procedures: None. Hospital course: Patient is a 66-year-old female past medical history of nonischemic cardiomyopathy (EF 15-20%, [id number]-[id number] type 2 diabetes mellitus, morbid obesity, hypertension, hyperlipidemia presented to the ED with progressive worsening lower extremity edema and dyspnea for the previous week that worsens when she is lying supine. Patient also described having intermittent chest pressure when walking upstairs. She also complained of a dry cough without fever. Patient follows with her mother helper regularly, and she last saw Dr. Herrera with [facility] approximately 2-3 months ago. On presentation, the patient was found to be hemodynamically stable with an elevated blood pressure of 184/115. Patient's labs relatively unremarkable with a potassium of 3.5. Cardiology was consulted for further management. Chest x- ray was significant for pulmonary edema with left pleural effusion. Patient underwent venous Dopplers of her bilateral lower extremities that were unremarkable for lower extremity DVT. Patient was started on IV diuresis, fluid restriction, and medical management. Patient will follow-up with Dr. Lares upon discharge. The patient is medically clear for discharge. Disposition: 01 HOME / SELF CARE / HOMELESS Final Discharge Diagnosis (Prints w/discharge instructions): Acute on chronic systolic heart failure, hypertension, NSTEMI type II, noninsulin-dependent type 2 diabetes mellitus with hyperglycemia and neuropathy, recent history of TIA, hyperlipidemia, morbid obesity. Time spent for discharge: 45 min Core Measure Documentation - Palliative Care Palliative Care/ Comfort Measures: Not Applicable - Core Measures Any of the following diagnoses?: heart failure - Heart Failure Discharge Requirements CARI/ARB for LVSD if EF <40%: Yes Beta talat at discharge: Yes Exam - Constitutional Vitals: Temp Pulse Resp BP Pulse Ox 98.7 F 77 18 169/94 96 04/19/22 11:23 04/19/22 11:23 04/19/22 11:23 04/19/22 11:23 04/19/22 11:23 General appearance: Present: no acute distress, well-nourished, obese - EENT Eyes: Present: PERRL, EOM intact ENT: hearing intact, clear oral mucosa, dentition normal - Neck Neck: Present: supple, normal ROM - Respiratory Respiratory effort: normal Respiratory: bilateral: CTA - Cardiovascular Rhythm: regular Heart Sounds: Present: S1 & S2 - Extremities Extremities: no ischemia, pulses intact, pulses symmetrical, normal temperature, normal color Extremity abnormal: edema (Trace edema bilateral lower extremities) Peripheral Pulses: within normal limits - Abdominal General gastrointestinal: Present: soft, non-tender, non-distended, normal bowel sounds Female genitourinary: Present: deferred - Rectal Rectal Exam: deferred - Integumentary Integumentary: Present: clear, warm, dry - Musculoskeletal Musculoskeletal: strength equal bilaterally - Psychiatric Psychiatric: appropriate mood/affect, intact judgment & insight, memory intact, cooperative - Neurologic Neurologic: CNII-XII intact, moves all extremities - Allied Health Allied health notes reviewed: nursing, case management Plan Activity: advance as tolerated Diet: low salt, diabetic Special Instructions: restrict fluid intake to (2 L/day), other (Salt restriction of 2000 mg/day) Additional Instructions: Patient is a 66-year-old female past medical history of nonischemic cardiomyopathy (EF 15-20%, ehb-fzimyww-ljgtdlebs type 2 diabetes mellitus, morbid obesity, hypertension, hyperlipidemia presented to the ED with progressive worsening lower extremity edema and dyspnea for the previous week that worsens when she is lying supine. Patient also described having intermittent chest pressure when walking upstairs. She also complained of a dry cough without fever. Patient follows with her mother helper regularly, and she last saw Dr. Herrera with [facility] approximately 2-3 months ago. On presentation, the patient was found to be hemodynamically stable with an elevated blood pressure of 184/115. Patient's labs relatively unremarkable with a potassium of 3.5. Cardiology was consulted for further management. Chest x- ray was significant for pulmonary edema with left pleural effusion. Patient underwent venous Dopplers of her bilateral lower extremities that were unremarkable for lower extremity DVT. Patient was started on IV diuresis, fluid restriction, and medical management. Patient will follow-up with Dr. Lares upon discharge. The patient is medically clear for discharge. Care Plan Goals: Patient is medically clear for discharge. Assessment: Patient is a 66-year-old female past medical history of nonischemic cardiomyopathy (EF 15-20%, qxd-oqqgdnv-rcigjlrvl type 2 diabetes mellitus, morbid obesity, hypertension, hyperlipidemia presented to the ED with progressive worsening lower extremity edema and dyspnea for the previous week that worsens when she is lying supine. Patient also described having intermittent chest pressure when walking upstairs. She also complained of a dry cough without fever. Patient follows with her mother helper regularly, and she last saw Dr. Herrera with [facility] approximately 2-3 months ago. On presentation, the patient was found to be hemodynamically stable with an elevated blood pressure of 184/115. Patient's labs relatively unremarkable with a potassium of 3.5. Cardiology was consulted for further management. Chest x- ray was significant for pulmonary edema with left pleural effusion. Patient underwent venous Dopplers of her bilateral lower extremities that were unremarkable for lower extremity DVT. Patient was started on IV diuresis, fluid restriction, and medical management. Patient will follow-up with Dr. Lares upon discharge. The patient is medically clear for discharge. Follow up with: NETTIE GONGORA MD [Primary Care Provider] - 7 Days Prescriptions: Spironolactone [Aldactone] 25 mg PO QDAY #30 tablet Sacubitril/Valsartan [Entresto 49-51 mg] 1 each PO BID #60 tablet Dapagliflozin Propanediol [Farxiga] 5 mg PO DAILY #30 tab Furosemide [Lasix TAB] 40 mg PO QDAY #30 tablet Metoprolol Xl [Metoprolol SUCCINATE ER TAB] 50 mg PO QDAY #30 tablet
[2022-04-20] MEDS ORDERED: FUROSEMIDE 40 MG TAB PO SCH (10:00)
== END 2022-04-19 17:44 | disposition home or self-care (01) | DRG 280 ==
LOC: ED 18:22 → 4A 04-17 07:17
PROVIDERS: ADMIT Student in an Organized Health Care Education/Training Program; ATTEND Student in an Organized Health Care Education/Training Program
DX: I11.0 Hypertensive heart disease with heart failure (principal); I50.23 Acute on chronic systolic (congestive) heart failure; I21.A1 Myocardial infarction type 2; I16.1 Hypertensive emergency; I42.8 Other cardiomyopathies; E11.65 Type 2 diabetes mellitus with hyperglycemia; E66.01 Morbid (severe) obesity due to excess calories; Z68.35 Body mass index [BMI] 35.0-35.9, adult; Z71.3 Dietary counseling and surveillance; E11.40 Type 2 diabetes mellitus with diabetic neuropathy, unspecified; I25.10 Atherosclerotic heart disease of native coronary artery without angina pectoris; E78.2 Mixed hyperlipidemia; Z79.899 Other long term (current) drug therapy; Z86.73 Personal history of transient ischemic attack (TIA), and cerebral infarction without residual deficits; Z79.82 Long term (current) use of aspirin
CPT/HCPCS: 36415; 71046; 80048; 82962; 83880; 84484; 85007; 85025; 93005; 93306; 93970; 99285; G0378; Q9967; C8929; J1644; J1650; J1815; J1940

== ENCOUNTER 2022-04-27 16:00 | Emergency (ER) | payer MEDICARE ==
[2022-04-27] MEDS ORDERED: niCARdipine DRIP 40 MG/200 ML BAG ONE (16:03)
[2022-04-27] MEDS ORDERED: niCARdipine DRIP 40 MG/200 ML BAG IV ONE (16:16)
[2022-04-27] MEDS ORDERED: SUCCINYLCHOLINE CHLORIDE 200 MG/10 ML INJ MDV IV ONE (16:16)
[2022-04-27] MEDS ORDERED: MINERAL OIL/PETROLATUM, WHITE OPHTH OINT 3.5 GM OU PRN (16:16)
[2022-04-27] MEDS ORDERED: LIP THERAPY VASELINE TP PRN (16:16)
[2022-04-27] MEDS ORDERED: ETOMIDATE 20 MG/10 ML INJ IV ONE (16:16)
[2022-04-27] MEDS ORDERED: LIDOCAINE PF 100 MG/5 ML (CARDIAC SYRINGE) IV ONE (16:16)
--- NOTE | 2022-04-27 16:20 | Emergency Department Report ---
ED General Adult HPI - General Chief complaint: Neuro Symptoms/Deficit Stated complaint: STROKE Time Seen by Provider: 04/27/22 16:14 Source: family, EMS (Verbal report received from emergency medical services. [facility]), RN notes reviewed, old records reviewed Mode of arrival: Stretcher Limitations: Altered Mental Status, Physical Limitation - History of Present Illness Initial comments: The patient was evaluated in the emergency department for symptoms described in the history of present illness. He/she was evaluated in the context of the global COVID-19 pandemic, which necessitated consideration that the patient might be at risk for infection with the virus that causes COVID-19. Institutional protocols and algorithms that pertain to the evaluation of patients at risk for COVID-19 are in a state of rapid change based on information released by regulatory bodies including the CDC and federal and state organizations. These policies and algorithms were followed during the patient's care in the emergency department. Please note that these policies, procedures and recommendations changed on a rapid basis. The patient is a 66-year-old female who was brought to the hospital by emergency medical services with an EMS articulated complaint of possible code stroke. Patient herself has vomited, airway is not protected, she has a left-sided gaze preference, and right-sided hemiparesis. Accu-Chek is within normal limits. Patient intubated using RSI induction techniques, for acute respiratory failure, and need to protect airway. After initial placement of endotracheal tube and the tube is noted to be in the right mainstem, and is subsequently retracted. History is further obtained by speaking to the patient's , Mr. Sourav Peraza, at [phone]. Collateral history also obtained from the patient's son, Mr. Radames Peraza, [phone] As per the patient's , the patient's last known well time is approximately 2:45 PM. As per collateral information from EMS, they received a call at approximately 3:15 PM. Upon arrival to this emergency room, the patient has a dense left-sided gaze preference, has vomitus in her mouth and airway, is not protecting her airway, and has a right-sided hemiparesis. After intubation, started on Cardene drip, propofol. After intubation, extensive history obtained from patient's family. Specifically, inquired about contraindications to tPA. As per family, no recent stroke within the past 3 months, trauma, systemic anticoagulation, surgery, and family denies contraindications to tPA. Noncontrast CT scan of the brain is read as negative for acute findings, consulting neurology opines that there might be a dense left MCA sign. 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 Contacted [facility], Dr. Flex Dubose Discussed the patient's history, physical, imaging studies and clinical impression. We recommend transfer for large vessel occlusion and emergent endovascular intervention. He will accept the patient as a transfer. I discussed this with the patient's family Extensive discussion had with family, myself, and stroke neurology regarding risks, benefits and alternatives of tPA. Family has provided verbal consent for tPA. Specifically discussed risks of bleed, and fatal hemorrhagic transformation of tPA, and family endorses understanding. -: This afternoon - Related Data Previous Rx's Medication Instructions Recorded Last Taken Type Aspirin EC [Halfprin EC] 81 mg PO QDAY #30 tablet 01/02/21 Unknown Rx AtorvaSTATin [Lipitor] 80 mg PO QHS #30 tablet 01/02/21 Unknown Rx Clopidogrel [Plavix] 75 mg PO QDAY #30 tablet 01/02/21 Unknown Rx Gabapentin 300 mg PO BID #60 cap 01/02/21 Unknown Rx Glimepiride [Amaryl] 2 mg PO QDDIAB #30 tablet 01/02/21 Unknown Rx traMADoL [Ultram 50 MG tab] 50 mg PO Q6H PRN #30 tablet 01/02/21 Unknown Rx Dapagliflozin Propanediol [Farxiga] 5 mg PO DAILY #30 tab 04/19/22 Unknown Rx Furosemide [Lasix TAB] 40 mg PO QDAY #30 tablet 04/19/22 Unknown Rx Metoprolol Xl [Metoprolol 50 mg PO QDAY #30 tablet 04/19/22 Unknown Rx SUCCINATE ER TAB] Sacubitril/Valsartan [Entresto 1 each PO BID #60 tablet 04/19/22 Unknown Rx 49-51 mg] Spironolactone [Aldactone] 25 mg PO QDAY #30 tablet 04/19/22 Unknown Rx Allergies Allergy/AdvReac Type Severity Reaction Status Date / Time No Known Allergies Allergy Unverified 12/25/20 11:08 ED Review of Systems ROS: Stated complaint: STROKE Other details as noted in HPI Comment: Unobtainable due to pts medical conditions ED Past Medical Hx - Past Medical History Hx Hypertension: Yes Hx Heart Attack/AMI: Yes Hx Congestive Heart Failure: Yes Hx Diabetes: Yes - Social History Smoking Status: Never Smoker - Medications Home Medications: Home Medications Medication Instructions Recorded Confirmed Last Taken Type Aspirin EC [Halfprin EC] 81 mg PO QDAY #30 tablet 01/02/21 04/19/22 Unknown Rx AtorvaSTATin [Lipitor] 80 mg PO QHS #30 tablet 01/02/21 04/19/22 Unknown Rx Clopidogrel [Plavix] 75 mg PO QDAY #30 tablet 01/02/21 04/19/22 Unknown Rx Gabapentin 300 mg PO BID #60 cap 01/02/21 04/19/22 Unknown Rx Glimepiride [Amaryl] 2 mg PO QDDIAB #30 tablet 01/02/21 04/19/22 Unknown Rx traMADoL [Ultram 50 MG tab] 50 mg PO Q6H PRN #30 tablet 01/02/21 04/19/22 Unknown Rx Dapagliflozin Propanediol [Farxiga] 5 mg PO DAILY #30 tab 04/19/22 Unknown Rx Furosemide [Lasix TAB] 40 mg PO QDAY #30 tablet 04/19/22 Unknown Rx Metoprolol Xl [Metoprolol 50 mg PO QDAY #30 tablet 04/19/22 Unknown Rx SUCCINATE ER TAB] Sacubitril/Valsartan [Entresto 1 each PO BID #60 tablet 04/19/22 Unknown Rx 49-51 mg] Spironolactone [Aldactone] 25 mg PO QDAY #30 tablet 04/19/22 Unknown Rx ED Physical Exam - General Limitations: Altered Mental Status, Physical Limitation General appearance: obtunded - Head Head exam: Present: atraumatic, normocephalic - Eye Eye exam: Present: normal appearance, other (There is a left-sided gaze preference) - ENT ENT exam: Present: normal exam, normal orophraynx, mucous membranes moist, normal external ear exam, other (Copious secretions noted in the mouth. Food is noted in the mouth) - Neck Neck exam: Present: normal inspection, full ROM. Absent: tenderness, meningismus - Respiratory Respiratory exam: Present: respiratory distress, rhonchi - Cardiovascular Cardiovascular Exam: Present: regular rate, normal rhythm, normal heart sounds. Absent: tachycardia, irregular rhythm, systolic murmur, diastolic murmur, rubs, gallop - GI/Abdominal GI/Abdominal exam: Present: soft. Absent: distended, tenderness, guarding, hayes ound, rigid, pulsatile mass - Rectal Rectal exam: Present: normal inspection - External exam: Present: normal external exam - Extremities Exam Extremities exam: Present: normal inspection, full ROM (Left arm, left leg), other (2+ pulses noted in the bilateral upper and lower extremities. There is no palpable cord. negative Homans sign. Muscular compartments are soft. The pelvis is stable.). Absent: calf tenderness - Back Exam Back exam: Present: normal inspection. Absent: tenderness, CVA tenderness (R), CVA tenderness (L), paraspinal tenderness, vertebral tenderness - Neurological Exam Neurological exam: Present: altered, other (There is right-sided hemiparesis. There is a leftward gaze preference. After intubation, moving left arm and left leg) - Skin Skin exam: Present: warm, dry, intact, normal color. Absent: rash ED Course Vital Signs 04/27/22 04/27/22 04/27/22 16:01 16:18 16:30 Pulse Rate 82 98 H 108 H Respiratory 20 21 Rate Blood Pressure 201/126 O2 Sat by Pulse 97 100 93 Oximetry 04/27/22 04/27/22 04/27/22 16:42 16:46 17:26 Pulse Rate 105 H 104 H Respiratory 22 16 Rate Blood Pressure 202/121 185/96 O2 Sat by Pulse 100 100 100 Oximetry 04/27/22 04/27/22 04/27/22 17:30 17:33 17:36 Pulse Rate 97 H 89 87 Respiratory 21 Rate Blood Pressure 172/89 155/69 155/69 O2 Sat by Pulse 100 Oximetry 04/27/22 17:46 Pulse Rate 79 Respiratory 18 Rate Blood Pressure 138/58 O2 Sat by Pulse 100 Oximetry - Reevaluation(s) Reevaluation #1: 04/27/22 18:05 Elevated troponin is likely a type II troponin leak. Given time sensitive nature of acute ischemic stroke, defer to receiving receiving team to manage potassium of 3.2. Defer to receiving team to manage and obtain repeat EKG. - Intubation Time Out Performed: No (Emergency situation) Sedative: Etomidate (20) Mg Given: 20 Paralytic: Succinylcholine Mg Given: 100 Laryngoscope: fiberoptic video scope Assist Device Used: fiberoptic device ET Tube Size: 7.5 Tube Secured Depth (cm): 23 Tube Secured Location: teeth Tube Placement Confirmation: visualized tube passing t, equal breath sounds bilat, no breath sounds over epi, confirmation by capnometr Patient Tolerated Procedure: well Intubation Complications: other Additional Comments: Patient presenting with acute respiratory failure, vomitus in mouth, requires emergency intubation. Patient is intubated using rapid sequence induction techniques. After placement of endotracheal tube, post procedure x-ray shows right mainstem placement, tube is retracted, postprocedure x-ray shows improvement in lung aeration. Patient placed on nasal cannula 15 L/min. Received simultaneous [id number] ventilation. Preoxygenated to 99/100%. Video laryngoscopy is performed, with a curved S4 video laryngoscope, and a 7.5 endotracheal tube is gently inserted into the oropharynx, after appropriate suctioning. The tube is placed through the trachea without difficulty, stylette is removed, docking pilot balloon is inflated, and end-tidal capnography confirmatory device is attached to the endotracheal tube, and there is appropriate end-tidal capnography color change. Condensation is noted on the tube, and there are appropriate breath sounds appreciated bilaterally. ED Medical Decision Making - Lab Data Result diagrams: 04/27/22 17:09 04/27/22 17:09 Vital Signs 04/27/22 04/27/22 04/27/22 16:01 16:42 17:33 Pulse Rate 82 89 Blood Pressure 155/69 O2 Sat by Pulse 97 100 Oximetry 04/27/22 17:36 Pulse Rate 87 Blood Pressure 155/69 O2 Sat by Pulse Oximetry Lab Results 04/27/22 04/27/22 04/27/22 Range/Units 17:09 17:09 17:09 WBC 7.3 (4.5-11.0) K/mm3 RBC 4.52 (3.65-5.03) M/mm3 Hgb 13.3 (10.1-14.3) gm/dl Hct 40.8 (30.3-42.9) % MCV 90 (79-97) fl MCH 29 (28-32) pg MCHC 33 (30-34) % RDW 14.0 (13.2-15.2) % Plt Count 243 (140-440) K/mm3 Lymph % (Auto) 12.1 L (13.4-35.0) % [place] % (Auto) 7.5 H (0.0-7.3) % Eos % (Auto) 2.7 (0.0-4.3) % Baso % (Auto) 1.4 (0.0-1.8) % Lymph # (Auto) 0.9 L (1.2-5.4) K/mm3 [place] # (Auto) 0.5 (0.0-0.8) K/mm3 Eos # (Auto) 0.2 (0.0-0.4) K/mm3 Baso # (Auto) 0.1 (0.0-0.1) K/mm3 Seg Neutrophils % 76.3 H (40.0-70.0) % Seg Neutrophils # 5.6 (1.8-7.7) K/mm3 PT 14.3 (12.2-14.9) Sec. INR 1.00 (0.87-1.13) APTT 26.2 (24.2-36.6) Sec. Thrombin Time 17.1 (15.1-19.6) Sec. CK-MB (CK-2) 2.4 (0.0-4.0) ng/mL Troponin T 0.035 H (0.00-0.029) ng/mL Urine Color (Yellow) Urine Turbidity (Clear) Specific [place] (Man) (1.003-1.030) Ur Protein (Man) (Negative) mg/dL Ur Ketones (Man) (Negative) Ur Nitrite (Man) (Negative) Ur Reducing Substances Urine Bilirubin (Man) (Negative) Urine Ictotest Leukocyte Esterase (Man) (Negative) Urine WBC (Auto) (0.0-6.0) /HPF Urine RBC (Auto) (0.0-6.0) /HPF Urine RBC (Manual) (Negative) Hyaline Casts /LPF Urine Mucus /HPF Plasma/Serum Alcohol (0-0.07) % 04/27/22 04/27/22 Range/Units 17:09 Unknown WBC (4.5-11.0) K/mm3 RBC (3.65-5.03) M/mm3 Hgb (10.1-14.3) gm/dl Hct (30.3-42.9) % MCV (79-97) fl MCH (28-32) pg MCHC (30-34) % RDW (13.2-15.2) % Plt Count (140-440) K/mm3 Lymph % (Auto) (13.4-35.0) % [place] % (Auto) (0.0-7.3) % Eos % (Auto) (0.0-4.3) % Baso % (Auto) (0.0-1.8) % Lymph # (Auto) (1.2-5.4) K/mm3 [place] # (Auto) (0.0-0.8) K/mm3 Eos # (Auto) (0.0-0.4) K/mm3 Baso # (Auto) (0.0-0.1) K/mm3 Seg Neutrophils % (40.0-70.0) % Seg Neutrophils # (1.8-7.7) K/mm3 PT (12.2-14.9) Sec. INR (0.87-1.13) APTT (24.2-36.6) Sec. Thrombin Time (15.1-19.6) Sec. CK-MB (CK-2) (0.0-4.0) ng/mL Troponin T (0.00-0.029) ng/mL Urine Color Straw (Yellow) Urine Turbidity Clear (Clear) Specific [place] (Man) 1.010 (1.003-1.030) Ur Protein (Man) 3+ (Negative) mg/dL Ur Ketones (Man) Negative (Negative) Ur Nitrite (Man) Negative (Negative) Ur Reducing Substances Not Reportable Urine Bilirubin (Man) Negative (Negative) Urine Ictotest Not Reportable Leukocyte Esterase (Man) Negative (Negative) Urine WBC (Auto) 1.0 (0.0-6.0) /HPF Urine RBC (Auto) 1.0 (0.0-6.0) /HPF Urine RBC (Manual) Negative (Negative) Hyaline Casts 1 /LPF Urine Mucus Few /HPF Plasma/Serum Alcohol < 0.01 (0-0.07) % Lab Results 04/27/22 04/27/22 04/27/22 Range/Units 17:09 17:09 17:09 WBC 7.3 (4.5-11.0) K/mm3 RBC 4.52 (3.65-5.03) M/mm3 Hgb 13.3 (10.1-14.3) gm/dl Hct 40.8 (30.3-42.9) % MCV 90 (79-97) fl MCH 29 (28-32) pg MCHC 33 (30-34) % RDW 14.0 (13.2-15.2) % Plt Count 243 (140-440) K/mm3 Lymph % (Auto) 12.1 L (13.4-35.0) % [place] % (Auto) 7.5 H (0.0-7.3) % Eos % (Auto) 2.7 (0.0-4.3) % Baso % (Auto) 1.4 (0.0-1.8) % Lymph # (Auto) 0.9 L (1.2-5.4) K/mm3 [place] # (Auto) 0.5 (0.0-0.8) K/mm3 Eos # (Auto) 0.2 (0.0-0.4) K/mm3 Baso # (Auto) 0.1 (0.0-0.1) K/mm3 Seg Neutrophils % 76.3 H (40.0-70.0) % Seg Neutrophils # 5.6 (1.8-7.7) K/mm3 PT 14.3 (12.2-14.9) Sec. INR 1.00 (0.87-1.13) APTT 26.2 (24.2-36.6) Sec. Thrombin Time 17.1 (15.1-19.6) Sec. Sodium 141 (137-145) mmol/L Potassium 3.2 L (3.6-5.0) mmol/L Chloride 97.3 L (98-107) mmol/L Carbon Dioxide 31 H (22-30) mmol/L Anion Gap 16 mmol/L BUN 18 H (7-17) mg/dL Creatinine 1.2 (0.6-1.2) mg/dL Estimated GFR 45 ml/min BUN/Creatinine Ratio 15 % Glucose 271 H (65-100) mg/dL Calcium 8.1 L (8.4-10.2) mg/dL Total Bilirubin 1.20 (0.1-1.2) mg/dL AST 17 (5-40) units/L ALT 14 (7-56) units/L Alkaline Phosphatase 91 (35-129) units/L Total Creatine Kinase 116 (30-135) units/L CK-MB (CK-2) 2.4 (0.0-4.0) ng/mL CK-MB (CK-2) Rel Index 2.0 (0-4) Troponin T 0.035 H (0.00-0.029) ng/mL Total Protein 5.3 L (6.3-8.2) g/dL Albumin 3.1 L (3.9-5) g/dL Albumin/Globulin Ratio 1.4 % Urine Color (Yellow) Urine Turbidity (Clear) Specific [place] (Man) (1.003-1.030) Ur Protein (Man) (Negative) mg/dL Ur Ketones (Man) (Negative) Ur Nitrite (Man) (Negative) Ur Reducing Substances Urine Bilirubin (Man) (Negative) Urine Ictotest Leukocyte Esterase (Man) (Negative) Urine WBC (Auto) (0.0-6.0) /HPF Urine RBC (Auto) (0.0-6.0) /HPF Urine RBC (Manual) (Negative) Hyaline Casts /LPF Urine Mucus /HPF Plasma/Serum Alcohol (0-0.07) % 04/27/22 04/27/22 Range/Units 17:09 Unknown WBC (4.5-11.0) K/mm3 RBC (3.65-5.03) M/mm3 Hgb (10.1-14.3) gm/dl Hct (30.3-42.9) % MCV (79-97) fl MCH (28-32) pg MCHC (30-34) % RDW (13.2-15.2) % Plt Count (140-440) K/mm3 Lymph % (Auto) (13.4-35.0) % [place] % (Auto) (0.0-7.3) % Eos % (Auto) (0.0-4.3) % Baso % (Auto) (0.0-1.8) % Lymph # (Auto) (1.2-5.4) K/mm3 [place] # (Auto) (0.0-0.8) K/mm3 Eos # (Auto) (0.0-0.4) K/mm3 Baso # (Auto) (0.0-0.1) K/mm3 Seg Neutrophils % (40.0-70.0) % Seg Neutrophils # (1.8-7.7) K/mm3 PT (12.2-14.9) Sec. INR (0.87-1.13) APTT (24.2-36.6) Sec. Thrombin Time (15.1-19.6) Sec. Sodium (137-145) mmol/L Potassium (3.6-5.0) mmol/L Chloride (98-107) mmol/L Carbon Dioxide (22-30) mmol/L Anion Gap mmol/L BUN (7-17) mg/dL Creatinine (0.6-1.2) mg/dL Estimated GFR ml/min BUN/Creatinine Ratio % Glucose (65-100) mg/dL Calcium (8.4-10.2) mg/dL Total Bilirubin (0.1-1.2) mg/dL AST (5-40) units/L ALT (7-56) units/L Alkaline Phosphatase (35-129) units/L Total Creatine Kinase (30-135) units/L CK-MB (CK-2) (0.0-4.0) ng/mL CK-MB (CK-2) Rel Index (0-4) Troponin T (0.00-0.029) ng/mL Total Protein (6.3-8.2) g/dL Albumin (3.9-5) g/dL Albumin/Globulin Ratio % Urine Color Straw (Yellow) Urine Turbidity Clear (Clear) Specific [place] (Man) 1.010 (1.003-1.030) Ur Protein (Man) 3+ (Negative) mg/dL Ur Ketones (Man) Negative (Negative) Ur Nitrite (Man) Negative (Negative) Ur Reducing Substances Not Reportable Urine Bilirubin (Man) Negative (Negative) Urine Ictotest Not Reportable Leukocyte Esterase (Man) Negative (Negative) Urine WBC (Auto) 1.0 (0.0-6.0) /HPF Urine RBC (Auto) 1.0 (0.0-6.0) /HPF Urine RBC (Manual) Negative (Negative) Hyaline Casts 1 /LPF Urine Mucus Few /HPF Plasma/Serum Alcohol < 0.01 (0-0.07) % - Radiology Data Radiology results: pending, report reviewed, image reviewed CT angio head INDICATION / CLINICAL INFORMATION: 66 years Female; stroke sx. TECHNIQUE: Thin cut axial images obtained through the head during IV bolus contrast administration. Sagittal, coronal, and 3 plane MIP reconstructions performed by the technologist. NASCET type criteria used evaluate stenoses. A utomated exposure control utilized for radiation reduction purposes. COMPARISON: The study is compared with the previous CTA head of 12/26/2020. FINDINGS: INTERNAL CAROTID ARTERIES: There is no significant developing a stenosis involving intracranial ICAs by NASCET to criteria. 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 There is also developmental origin origin of the posterior cerebral arteries bilaterally with hypoplasia of the basilar artery. There is also mild segmental narrowing of the basilar artery which may reflect atherosclerotic disease. 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 There is a branch of vessel just proximal to the occlusion which feeds the more distal MCA as segments appears to demonstrate some component of collateralization. The remaining proximal cerebral arteries and adjacent segments appear to demonstrate appropriate caliber without significant stenosis. ANEURYSM: None identified. ADDITIONAL FINDINGS: The dural venous sinuses opacify with contrast. 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 Signer Name: Radames Sierra MD Signed: 04/27/2022 4:37 PM ABDOMEN 1 VIEW 04/27/2022 4:01 PM INDICATION / CLINICAL INFORMATION: og tube placement. COMPARISON: None available. FINDINGS: TUBES / LINES: Esophagogastric tube is redundantly coiled in the stomach. BOWEL GAS PATTERN: No significant abnormality. FREE AIR / EXTRALUMINAL GAS: None. ADDITIONAL FINDINGS: Left lung base opacities. IMPRESSION: 1. Esophagogastric tube is redundantly coiled in the stomach. Retraction of approximately 8 cm can be considered as indicated. Signer Name: Efe Moise MD Signed: 04/27/2022 4:08 PM Workstation Name: [id number] VIEW 04/27/2022 3:55 PM INDICATION / CLINICAL INFORMATION: ett. COMPARISON: Earlier today. FINDINGS: SUPPORT DEVICES: Endotracheal tube has been pulled back and is in satisfactory position approximately 3 cm above the messi. Esophagogastric tube remains doubled back on itself in the distal esophagus. HEART / MEDIASTINUM: Stable, enlarged. LUNGS / PLEURA: Bilateral pulmonary opacities are again noted. Those on the left have improved suggesting that they were due at least in part to atelectasis from the right mainstem intubation. No pneumothorax. ADDITIONAL FINDINGS: No significant additional findings. IMPRESSION: 1. Endotracheal tube in satisfactory position. 2. Improving left lung opacities as above. 3. Esophagogastric tube remains doubled back on itself in the distal esophagus and needs to be repositioned or removed. Signer Name: Angel Hoyt MD Signed: 04/27/2022 4:00 PM Workstation Name: [id number] CT angio head INDICATION / CLINICAL INFORMATION: 66 years Female; stroke sx. TECHNIQUE: Thin cut axial images obtained through the head during IV bolus contrast administration. Sagittal, coronal, and 3 plane MIP reconstructions performed by the technologist. NASCET type criteria used evaluate stenoses. Automated exposure control utilized for radiation reduction purposes. COMPARISON: The study is compared with the previous CTA head of 12/26/2020. FINDINGS: INTERNAL CAROTID ARTERIES: There is no significant developing a stenosis involving intracranial ICAs by NASCET to criteria. 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 There is also developmental origin origin of the posterior cerebral arteries bilaterally with hypoplasia of the basilar artery. There is also mild segmental narrowing of the basilar artery which may reflect atherosclerotic disease. 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 There is a branch of vessel just proximal to the occlusion which feeds the more distal MCA as segments appears to demonstrate some component of collateralization. The remaining proximal cerebral arteries and adjacent segments appear to demonstrate appropriate caliber without significant stenosis. ANEURYSM: None identified. ADDITIONAL FINDINGS: The dural venous sinuses opacify with contrast. 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 Signer Name: Radames Sierra MD Signed: 04/27/2022 4:37 PM Workstation Name: [id number] CT angio neck INDICATION / CLINICAL INFORMATION: 66 years Female; stroke sx. TECHNIQUE: Thin cut axial images obtained through the head during IV bolus contrast administration. Sagittal, coronal, and 3 plane MIP reconstructions performed by the technologist. NASCET type criteria used evaluate stenoses. All CT scans at this location are performed using CT dose reduction for ALARA by means of automated exposure control. COMPARISON: The study is compared to previous CTA neck L5 to 2020. FINDINGS: CAROTID ARTERIES: The motion and beam hardening degrade the image quality at. However, there is continued mild calcified plaque involving the proximal left ICA without significant stenosis by NASCET criteria. There is a small focus of calcification involving proximal left ICA also without significant developing narrowing at. The findings appear to correlate with the previous exam. VERTEBRAL ARTERIES: There is no significant focal narrowing involving the left cervical vertebral artery at. 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 There is suggestion of mild to moderate narrowing of the origin though this may be exacerbated by the degree of motion. ARCH: There is no clear evidence of significant stenosis involving origins of the arch vessels. There appears to be developmental common origin of the brachiocephalic and left common carotid arteries. ADDITIONAL FINDINGS: Remainder of the surrounding soft tissues are grossly normal. IMPRESSION: The study is limited by motion. However, there is continued mild atherosclerotic calcification involving proximal internal carotid arteries bilaterally without ossific and developing stenosis by NASCET criteria. Signer Name: Radames Sierra MD Signed: 04/27/2022 4:31 PM Workstation Name: [id number] CT head/brain wo con INDICATION / CLINICAL INFORMATION: 66 years Female; Acute stroke symptoms. Left-sided gaze preference. TECHNIQUE: Routine CT head without contrast. All CT scans at this location are performed using CT dose reduction for ALARA by means of automated exposure control. COMPARISON: The study is compared to previous CT of 12/25/2020. FINDINGS: BRAIN / INTRACRANIAL CONTENTS: The motion degrades the image quality in this intubated patient. Is encephalomalacia along the right frontoparietal junction most consistent with old infarct at. More focal chronic ischemic changes are seen along the frontal lobes, greater on the right extending to the subcortical regions. The findings have progressed from the previous CT of 12/25/2020 and correlation would be needed regarding superimposed acute process given the history. There is no clear CT evidence of acute intracranial hemorrhage. The ventricular system appears unchanged in size and configuration. ORBITS: No significant abnormality of visualized orbits. SINUSES / MASTOIDS: No significant abnormality in the visualized paranasal sinuses or mastoid air cells. CRANIOCERVICAL JUNCTION: No significant abnormality. ADDITIONAL FINDINGS: None. IMPRESSION: 1. The study is limited by motion. However, there is microvascular angiopathy as detailed above without clear CT evidence of acute intracranial hemorrhage. Signer Name: Lee Sierra MD Signed: 04/27/2022 4:23 PM Workstation Name: [id number] CHEST 1 VIEW 04/27/2022 3:55 PM INDICATION / CLINICAL INFORMATION: ETT placement. COMPARISON: 04/16/2022 FINDINGS: SUPPORT DEVICES: Endotracheal tube tip is within the proximal right mainstem bronchus and should be pulled back several centimeters. Esophagogastric tube is doubled back on itself in the distal esophagus. HEART / MEDIASTINUM: Enlarged. LUNGS / PLEURA: There is dense airspace disease in the left upper and left lower lobes. There is mild right lung airspace disease. No pneumothorax. No pneumothorax. ADDITIONAL FINDINGS: No significant additional findings. IMPRESSION: 1. Malpositioned endotracheal and esophagogastric tubes, as above. These need to be repositioned. 2. Pulmonary opacities as above nonspecific but concerning for pneumonia. Signer Name: Angel Hoyt MD Signed: 04/27/2022 4:00 PM Workstation Name: [id number] - Medical Decision Making Differential diagnosis, include but not limited to: Acute encephalopathy, acute respiratory failure, hypertensive emergency, acute stroke, acute arterial occlusion Assessment and plan: 66-year-old female presenting with acute left-sided MCA occlusion, in the M1 distribution, complicated by hypertensive emergency, and acute respiratory failure. Patient intubated, initiated on Cardene drip, propofol drip, Versed drip, receiv ed tPA bolus, and tPA infusion. Patient is presenting with a large vessel occlusion, and is a candidate for emergent endovascular intervention. This hospital does not have the capability to provide emergent endovascular intervention. Patient currently on a ventilator, airway is now maintained, blood pressure is maintained acceptably at this time, and patient suitable for transfer for definitive services not available at this facility. Her family has provided consent for transfer to [facility], under the care of excepting physician, Dr. Flex dubose Currently awaiting critical care transport. Discussed this extensively multiple times with the patient's family members, who are in agreement with this plan of care Critical Care Time: Yes Critical care time in (mins) excluding proc time.: 120 Critical care attestation.: If time is entered above; I have spent that time in minutes in the direct care of this critically ill patient, excluding procedure time. ED Disposition Clinical Impression: Acute respiratory failure, Hypertensive emergency, Left acute arterial ischemic stroke, MCA (middle cerebral artery), Acute encephalopathy Disposition: SHORT TERM HOSPITAL Is pt being admited?: No Does the pt Need Aspirin: No Condition: Critical Instructions: Hypertension (ED)
--- NOTE | 2022-04-27 17:05 | XRay Report ---
CHEST 1 VIEW 04/27/2022 3:55 PM INDICATION / CLINICAL INFORMATION: ETT placement. COMPARISON: 04/16/2022 FINDINGS: SUPPORT DEVICES: Endotracheal tube tip is within the proximal right mainstem bronchus and should be p ulled back several centimeters. Esophagogastric tube is doubled back on itself in the distal esophagu s. HEART / MEDIASTINUM: Enlarged. LUNGS / PLEURA: There is dense airspace disease in the left upper and left lower lobes. There is mild right lung airspace disease. No pneumothorax. No pneumothorax. ADDITIONAL FINDINGS: No significant additional findings. IMPRESSION: 1. Malpositioned endotracheal and esophagogastric tubes, as above. These need to be repositioned. 2. Pulmonary opacities as above nonspecific but concerning for pneumonia. Signer Name: Angel Hoyt MD Signed: 04/27/2022 5:00 PM Workstation Name: [id number]
--- NOTE | 2022-04-27 17:05 | XRay Report ---
CHEST 1 VIEW 04/27/2022 3:55 PM INDICATION / CLINICAL INFORMATION: ett. COMPARISON: Earlier today. FINDINGS: SUPPORT DEVICES: Endotracheal tube has been pulled back and is in satisfactory position approximately 3 cm above the messi. Esophagogastric tube remains doubled back on itself in the distal esophagus. HEART / MEDIASTINUM: Stable, enlarged. LUNGS / PLEURA: Bilateral pulmonary opacities are again noted. Those on the left have improved sugges ting that they were due at least in part to atelectasis from the right mainstem intubation. No pneumo thorax. ADDITIONAL FINDINGS: No significant additional findings. IMPRESSION: 1. Endotracheal tube in satisfactory position. 2. Improving left lung opacities as above. 3. Esophagogastric tube remains doubled back on itself in the distal esophagus and needs to be reposi tioned or removed. Signer Name: Angel Hoyt MD Signed: 04/27/2022 5:00 PM Workstation Name: [id number]
--- NOTE | 2022-04-27 17:13 | XRay Report ---
ABDOMEN 1 VIEW 04/27/2022 4:01 PM INDICATION / CLINICAL INFORMATION: og tube placement. COMPARISON: None available. FINDINGS: TUBES / LINES: Esophagogastric tube is redundantly coiled in the stomach. BOWEL GAS PATTERN: No significant abnormality. FREE AIR / EXTRALUMINAL GAS: None. ADDITIONAL FINDINGS: Left lung base opacities. IMPRESSION: 1. Esophagogastric tube is redundantly coiled in the stomach. Retraction of approximately 8 cm can be considered as indicated. Signer Name: Efe Moise MD Signed: 04/27/2022 5:08 PM Workstation Name: [id number]
[2022-04-27] MEDS ORDERED: ALTEPLASE 100 MG INJ KIT IV ONE ×2 (17:17)
[2022-04-27] MEDS ORDERED: SODIUM CHLORIDE 0.9% 50 ML IVPB IV ONE (17:17)
[2022-04-27 17:22] LABS: Basophils # (Auto) 0.1 K/mm3 (0.0-0.1); Basophils % (Auto) 1.4 % (0.0-1.8); Eosinophils # (Auto) 0.2 K/mm3 (0.0-0.4); Eosinophils % (Auto) 2.7 % (0.0-4.3); Hematocrit 40.8 % (30.3-42.9); Hemoglobin 13.3 gm/dl (10.1-14.3); Lymphocytes # (Auto) 0.9 K/mm3 (1.2-5.4); Lymphocytes % (Auto) 12.1 % (13.4-35.0); Mean Corpuscular HGB Conc 33 % (30-34); Mean Corpuscular Volume 90 fl (79-97); Monocytes # (Auto) 0.5 K/mm3 (0.0-0.8); Monocytes % (Auto) 7.5 % (0.0-7.3); Platelet Count 243 K/mm3 (140-440); Red Blood Count 4.52 M/mm3 (3.65-5.03)
--- NOTE | 2022-04-27 17:24 | Emergency Department Report ---
Blank Doc - Documentation Documentation: [facility] Consult Note # Demographics Consult Type: Acute Stroke Level 1 (0-4.5 hrs) Patient Location: Emergency Room First Name: mackenzie Last Name: jerry Date of : 1955 Age: 66 Gender: Female Facility: Time of Initial Page (Eastern Time): 04/27/2022, 16:16 Time of Return Call (Eastern Time): 04/27/2022, 16:17 # HPI History: 66 year old female with left gaze and right sided weakness. She required intubation. CTH/CTA was to be done. ED provider reviewed meds and only plavix was listed and no other anticoag. No other contraindication Last Known Normal: 3:30 pm Possible Thrombolytic candidate: not on warfarin or NOACs no intracranial hemorrhage history no recent major surgery no known active major internal bleeding # Scores Level of Consciousness 1a: [0] = Alert; keenly responsive LOC Questions 1b: [0] = Answers both questions correctly LOC Commands 1c: [0] = Performs both tasks correctly Best Gaze 2: [0] = Normal Visual 3: [0] = No visual loss Facial Palsy 4: [0] = Normal symmetrical movements Motor Arm Left 5a: [0] = No drift Motor Leg Left 6a: [0] = No drift Motor Leg Right 6b: [0] = No drift Limb Ataxia 7: [0] = Absent Sensory 8: [0] = Normal Best Language 9: [0] = No aphasia Dysarthria 10: [0] = Normal Extinction and Inattention 11: [0] = No abnormality NIHSS Total: 0 # Exam Additional Exam Findings: I could not examine patient as intubated, sedated and on paralytics for the intubation # PMH-FH-SH Past Medical History: hypertension Social History: non-smoker non-drinker no drugs lives with family # Data Head CT: no bleed preliminarily reviewed by me, please refer to radiology read for official reading CTA Head: preliminarily reviewed by me, please refer to radiology read for official reading Left M1 occlusion # Assessment Impression: Patient with acute onset of left gaze, right sided weakness. CTH negative. Pt intubated by ED prior to my examination for airway protection thus I did not examine th epatient. As per ED provider she had left forced gaze and right sided weakness. No baseline weakness as per . No contraindications as per for tpa. Patient meets criteria. Noted left M1 occlusion on CTA, Recommend stat IR consult as well. # Plan Thrombolytic/Intervention: IV thrombolytic and possible IA candidate Thrombolytic Dosing: IV alteplase 0.9 mg/kg, max dose 90 mg; 10% of dose given over 1 minute IVP, remaining 90% given as infusion over 1 hour Thrombolytic Exclusion: > 4.5 hours Possible IA Candidate: signs and symptoms of LVO Intraarterial Exclusion: cta pending Time IV Thrombolytic Recommended (Eastern Time): 04/27/2022, 16:16 Blood Pressure Management: IV fluid bolus Target Blood Pressure: SBP < 180 DBP < 105 Labs: CBC comprehensive metabolic panel hemoglobin A1c lipid panel troponin TSH ua Imaging: (urgency: STAT): CT Head without contrast CT Angiogram Head and CT Angiogram Neck Imaging: (urgency: routine): MRI Brain without contrast Diagnostic Test: echo with bubble study Thrombolytic Administration Recommendations: I have collected independent history specific to time last normal or last known well. We have collaborated with the ED provider and at this time, we have the most current timeline with the information that is available. BP goal< 180/105 for 24hrs post Thrombolytic administration Use Labetolol 10-20mg IV prn or Nicardipine gtt to maintain BP parameters No antiplatelets or anticoagulants for next 24 hrs unless indicated for emergent IA procedure or other life threatening situation ICU admission Call back if there is any decline in neurological condition Transfer to facility that is IA capable for consideration of mechanical thrombectomy risk/benefit/alt discussed with at bedside Other: If patient has any neurological deterioration please call me back immediately telemetry monitoring I have discussed my recommendations with the referring provider Disposition: transfer to IA capable facility # Demographics First Name: mackenzie Last Name: jerry Facility:
--- NOTE | 2022-04-27 17:27 | Cat Scan Report ---
CT head/brain wo con INDICATION / CLINICAL INFORMATION: 66 years Female; Acute stroke symptoms. Left-sided gaze preference. TECHNIQUE: Routine CT head without contrast. All CT scans at this location are performed using CT dos e reduction for ALARA by means of automated exposure control. COMPARISON: The study is compared to previous CT of 12/25/2020. FINDINGS: BRAIN / INTRACRANIAL CONTENTS: The motion degrades the image quality in this intubated patient. Is en cephalomalacia along the right frontoparietal junction most consistent with old infarct at. More foca l chronic ischemic changes are seen along the frontal lobes, greater on the right extending to the wilkes bcortical regions. The findings have progressed from the previous CT of 12/25/2020 and correlation woul d be needed regarding superimposed acute process given the history. There is no clear CT evidence of acute intracranial hemorrhage. The ventricular system appears unchanged in size and configuration. ORBITS: No significant abnormality of visualized orbits. SINUSES / MASTOIDS: No significant abnormality in the visualized paranasal sinuses or mastoid air sapna ls. CRANIOCERVICAL JUNCTION: No significant abnormality. ADDITIONAL FINDINGS: None. IMPRESSION: 1. The study is limited by motion. 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 Signer Name: Radames Sierra MD Signed: 04/27/2022 5:23 PM Workstation Name: [id number]
[2022-04-27 17:28] LABS: Hyaline Casts,Urine 1 /LPF; Mucus,Urine FEW /HPF
[2022-04-27 17:31] LABS: Color,Urine Straw (Yellow)
[2022-04-27 17:36] LABS: Partial Thromboplastin Time 26.2 Sec. (24.2-36.6)
--- NOTE | 2022-04-27 17:36 | Cat Scan Report ---
CT angio neck INDICATION / CLINICAL INFORMATION: 66 years Female; stroke sx. TECHNIQUE: Thin cut axial images obtained through the head during IV bolus contrast administration. S agittal, coronal, and 3 plane MIP reconstructions performed by the technologist. NASCET type criteria used evaluate stenoses. All CT scans at this location are performed using CT dose reduction for ALAR A by means of automated exposure control. COMPARISON: The study is compared to previous CTA neck L5 to 2020. FINDINGS: CAROTID ARTERIES: The motion and beam hardening degrade the image quality at. However, there is analy nued mild calcified plaque involving the proximal left ICA without significant stenosis by NASCET cri teria. There is a small focus of calcification involving proximal left ICA also without significant d eveloping narrowing at. The findings appear to correlate with the previous exam. VERTEBRAL ARTERIES: There is no significant focal narrowing involving the left cervical vertebral art rony at. 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 There is suggestion of mild to moderate narrowing of the origin though this may be exacerbated by the degree of motion. ARCH: There is no clear evidence of significant stenosis involving origins of the arch vessels. There appears to be developmental common origin of the brachiocephalic and left common carotid arteries. ADDITIONAL FINDINGS: Remainder of the surrounding soft tissues are grossly normal. IMPRESSION: The study is limited by motion. However, there is continued mild atherosclerotic calcification involv ing proximal internal carotid arteries bilaterally without ossific and developing stenosis by NASCET criteria. Signer Name: Radames Sierra MD Signed: 04/27/2022 5:31 PM Workstation Name: [id number]
[2022-04-27 17:37] LABS: Thrombin Time 17.1 Sec. (15.1-19.6)
--- NOTE | 2022-04-27 17:41 | Cat Scan Report ---
CT angio head INDICATION / CLINICAL INFORMATION: 66 years Female; stroke sx. TECHNIQUE: Thin cut axial images obtained through the head during IV bolus contrast administration. S agittal, coronal, and 3 plane MIP reconstructions performed by the technologist. NASCET type criteria used evaluate stenoses. Automated exposure control utilized for radiation reduction purposes. COMPARISON: The study is compared with the previous CTA head of 12/26/2020. FINDINGS: INTERNAL CAROTID ARTERIES: There is no significant developing a stenosis involving intracranial ICAs by NASCET to criteria. VERTEBROBASILAR SYSTEM: There is again note of developmental hypoplasia the distal right vertebral ar victor hugo. There is also developmental origin origin of the posterior cerebral arteries bilaterally with hypoplasia of the basilar artery. There is also mild segmental narrowing of the basilar artery w hich may reflect atherosclerotic disease. 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 There is a branch of vessel just proximal to the occlusion which feeds the more distal MCA as segments appears to demonstrate so me component of collateralization. The remaining proximal cerebral arteries and adjacent segments tiffanie ear to demonstrate appropriate caliber without significant stenosis. ANEURYSM: None identified. ADDITIONAL FINDINGS: The dural venous sinuses opacify with contrast. 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 Signer Name: Radames Sierra MD Signed: 04/27/2022 5:37 PM Workstation Name: [id number]
[2022-04-27 17:48] LABS: Creatine Kinase MB 2.4 ng/mL (0.0-4.0)
[2022-04-27 17:53] LABS: Albumin 3.1 g/dL (3.9-5); Calcium 8.1 mg/dL (8.4-10.2)
[2022-04-27] MEDS ORDERED: MIDAZOLAM 2 MG/2 ML INJ IV PRN (17:54)
[2022-04-27] MEDS ORDERED: MIDAZOLAM 2 MG/2 ML INJ IV STA (17:54)
[2022-04-27] MEDS ORDERED: MIDAZOLAM 5 MG/5 ML INJ MDV IV ONE (17:56)
[2022-04-27] MEDS ORDERED: MIDAZOLAM/NS Drip 100mg/100ml 100 MG/100 ML BAG IV SCH (18:00)
[2022-04-27 18:08] LABS: Chol/HDL Ratio 4.47 %
[2022-04-27 19:03] VITALS: BP 122/53
[2022-04-27] MEDS ORDERED: FAMOTIDINE 20 MG/2 ML INJ IV SCH (22:00)
[2022-04-27] MEDS ORDERED: SENNOSIDES/DOCUSATE SODIUM 8.6/50 MG TAB FEEDTUBE SCH (22:00)
== END 2022-04-27 19:10 | disposition short-term general hospital (02) ==
LOC: ED 16:00
DX: J96.00 Acute respiratory failure, unspecified whether with hypoxia or hypercapnia (principal); I16.1 Hypertensive emergency; I63.50 Cerebral infarction due to unspecified occlusion or stenosis of unspecified cerebral artery; G93.40 Encephalopathy, unspecified
CPT/HCPCS: 31500; 36415; 70450; 70496; 70498; 71045; 74018; 80053; 80061; 80320; 81001; 82550; 82553; 84484; 85025; 85610; 85670; 85730; 94002; 96365; 99284; 99291; 99292; J3490; G0480; J0330; J2001; J2250; J2704; J2997; Q9967